=== PATIENT | female | born 1990 | race American Indian/Alaskan Native ===

== ENCOUNTER 2019-08-24 11:44 | Inpatient (IN) | payer SELFPAY ==
[2019-08-24] MEDS ORDERED: SODIUM CHLORIDE 0.9% 500 ML 500 ML IV ONE (12:04)
--- NOTE | 2019-08-24 12:06 | Event Note ---
ED Screening Note Date of service: 08/24/19 Time: 12:04 ED Screening Note: 28 y/o female comes in for n/v/ and right foot ulcer. She has a history of Diabetes and htn. This initial assessment/diagnostic orders/clinical plan/treatment(s) is/are subject to change based on patients health status, clinical progression and re- assessment by fellow clinical providers in the ED. Further treatment and workup at subsequent clinical providers discretion. Patient/guardian urged not to elope from the ED as their condition may be serious if not clinically assessed and managed. Initial orders include:
[2019-08-24 12:36] LABS: Hematocrit 29.8 % (30.3-42.9); Hemoglobin 9.8 gm/dl (10.1-14.3); Mean Corpuscular HGB Conc 33 % (30-34); Mean Corpuscular Volume 71 fl (79-97); Platelet Count 388 K/mm3 (140-440)
[2019-08-24] MEDS ORDERED: ONDANSETRON 4 MG/2 ML INJ IV ONE (12:45)
[2019-08-24] MEDS ORDERED: SODIUM CHLORIDE 0.9% 1000 ML 1,000 ML IV ONE (12:45)
[2019-08-24] MEDS ORDERED: FAMOTIDINE 20 MG/2 ML INJ IV ONE (12:46)
--- NOTE | 2019-08-24 12:53 | Emergency Department Report ---
HPI - General Chief Complaint: Nausea/Vomiting/Diarrhea Time Seen by Provider: 08/24/19 12:35 - HPI HPI: Room 18 The pt is a 28 y/o Female present with a chief complaint of nausea vomiting. The patient states she has had nausea vomiting and diarrhea for the past 3 days. Patient denies abdominal pain but states her symptoms worsen whenever she attempts to eat. The patient states the last thing she had eaten prior to her symptoms with pineapple. Patient denies any known sick contacts. Patient denies history of fever or cough. Patient admits to an ulceration to the bottom of her right foot for approximate 1 year. Patient states it has been getting smaller. ED Past Medical Hx - Past Medical History Previous Medical History?: Yes Hx Diabetes: Yes - Surgical History Past Surgical History?: No - Family History Family history: no significant - Social History Smoking Status: Former Smoker (None x2 years) Substance Use Type: None (Denies illicit drug use) ED Review of Systems ROS: Stated complaint: WEAK/VOMITING Other details as noted in HPI Constitutional: denies: fever Eyes: denies: eye pain ENT: denies: throat pain Respiratory: no symptoms reported Cardiovascular: denies: chest pain Endocrine: no symptoms reported Gastrointestinal: nausea, vomiting, diarrhea. denies: abdominal pain Genitourinary: denies: dysuria Neurological: denies: headache Physical Exam - Physical Exam Vital Signs: Vital Signs 08/24/19 11:57 Temperature 98.4 F Pulse Rate 109 H Respiratory 18 Rate Blood Pressure 149/87 O2 Sat by Pulse 96 Oximetry Physical Exam: GENERAL: The patient is well-developed well-nourished female lying on stretcher not appearing to be in acute distress. [] HEENT: Normocephalic. Atraumatic. Extraocular motions are intact. Patient has moist mucous membranes. NECK: Supple. Trachea midline CHEST/LUNGS: Clear to auscultation. There is no respiratory distress noted. HEART/CARDIOVASCULAR: Regular. There is no tachycardia. There is no gallop rub or murmur. ABDOMEN: Abdomen is soft, nontender. Patient has normal bowel sounds. There is no abdominal distention. SKIN: There is no rash. There is no edema. There is no diaphoresis. Approximate 3 cm diameter ulceration to the sole of the right foot. No foul odor present. NEURO: The patient is awake, alert, and oriented. The patient is cooperative. The patient has normal speech MUSCULOSKELETAL: There is no evidence of acute injury. ED Course Vital Signs 08/24/19 11:57 Temperature 98.4 F Pulse Rate 109 H Respiratory 18 Rate Blood Pressure 149/87 O2 Sat by Pulse 96 Oximetry - Consultations Consultation #1: 08/24/19 14:25 Infectious disease paged. 08/24/19 14:[address] Pelletier-agree with sending for the past 19 testing. Does not recommend initiating therapy yet ED Medical Decision Making - Lab Data Result diagrams: 08/24/19 12:20 08/24/19 12:20 Laboratory Tests 08/24/19 08/24/19 08/24/19 12:12 12:20 12:20 WBC 7.9 RBC 4.20 Hgb 9.8 L Hct 29.8 L MCV 71 L MCH 23 L MCHC 33 RDW 16.0 H Plt Count 388 ESR Cancelled PT 13.2 INR 0.99 ABG pH ABG pCO2 ABG pO2 ABG HCO3 ABG O2 Saturation ABG O2 Content ABG Base Excess ABG Hemoglobin ABG Carboxyhemoglobin ABG Methemoglobin VBG pH Oxyhemoglobin FiO2 Sodium Potassium Chloride Carbon Dioxide Anion Gap BUN Creatinine Estimated GFR BUN/Creatinine Ratio Glucose POC Glucose 158 H Lactic Acid Calcium Total Bilirubin AST ALT Alkaline Phosphatase C-Reactive Protein Total Protein Albumin Albumin/Globulin Ratio Lipase HCG, Quant 08/24/19 08/24/19 08/24/19 12:20 12:20 12:20 WBC RBC Hgb Hct MCV MCH MCHC RDW Plt Count ESR PT INR ABG pH ABG pCO2 ABG pO2 ABG HCO3 ABG O2 Saturation ABG O2 Content ABG Base Excess ABG Hemoglobin ABG Carboxyhemoglobin ABG Methemoglobin VBG pH 7.291 L Oxyhemoglobin FiO2 Sodium 132 L Potassium 4.9 Chloride 100.6 Carbon Dioxide 17 L Anion Gap 19 BUN 66 H Creatinine 4.1 H Estimated GFR 13 BUN/Creatinine Ratio 16 Glucose 159 H POC Glucose Lactic Acid 1.00 Calcium 8.7 Total Bilirubin 0.20 AST 32 ALT 21 Alkaline Phosphatase 86 C-Reactive Protein Total Protein 8.3 H Albumin 3.1 L Albumin/Globulin Ratio 0.6 Lipase HCG, Quant 08/24/19 08/24/19 08/24/19 12:20 12:20 12:20 WBC RBC Hgb Hct MCV MCH MCHC RDW Plt Count ESR PT INR ABG pH ABG pCO2 ABG pO2 ABG HCO3 ABG O2 Saturation ABG O2 Content ABG Base Excess ABG Hemoglobin ABG Carboxyhemoglobin ABG Methemoglobin VBG pH Oxyhemoglobin FiO2 Sodium Potassium Chloride Carbon Dioxide Anion Gap BUN Creatinine Estimated GFR BUN/Creatinine Ratio Glucose POC Glucose Lactic Acid Calcium Total Bilirubin AST ALT Alkaline Phosphatase C-Reactive Protein 7.70 H Total Protein Albumin Albumin/Globulin Ratio Lipase 92 H HCG, Quant 0.569 08/24/19 14:15 WBC RBC Hgb Hct MCV MCH MCHC RDW Plt Count ESR PT INR ABG pH 7.314 L ABG pCO2 34.3 ABG pO2 52.9 L ABG HCO3 17.1 L ABG O2 Saturation 84.0 L ABG O2 Content 10.3 ABG Base Excess -8.3 L ABG Hemoglobin 8.9 L ABG Carboxyhemoglobin 1.5 ABG Methemoglobin 0.6 VBG pH Oxyhemoglobin 82.2 L FiO2 21 Sodium Potassium Chloride Carbon Dioxide Anion Gap BUN Creatinine Estimated GFR BUN/Creatinine Ratio Glucose POC Glucose Lactic Acid Calcium Total Bilirubin AST ALT Alkaline Phosphatase C-Reactive Protein Total Protein Albumin Albumin/Globulin Ratio Lipase HCG, Quant - EKG Data -: EKG Interpreted by Me EKG shows normal: sinus rhythm Rate: tachycardia (102 bpm) - EKG Data When compared to previous EKG there are: previous EKG unavailable Interpretation: other (no ischemic changes) - Radiology Data Radiology results: image reviewed (CXR, Right foot xray, abd xray) interpreted by me: CXR- diffuse haziness, no ptx Abd xray- no AF levels, no free air right foot xray- No evidence of osteomyelitis [facility] [address] [place] [address] XRay Report Signed Patient: MARIO CAMPOS MR#: [id number] : 1990 Acct:[id number] Age/Sex: 28 / F ADM Date: 08/24/19 Loc: ED Attending Dr: Ordering Physician: MARY KAY SWARTZ MD Date of Service: 08/24/19 Procedure(s): XR chest 1V ap Accession Number(s): [id number] cc: MARY KAY SWARTZ MD Fluoro Time In Minutes: CHEST 1 VIEW INDICATION: possible Sepsis. COMPARISON: None FINDINGS: Support devices: None. Heart: Within normal limits. Lungs/Pleura: Mild central v ascular congestion and streaky right basilar airspace disease. No effusion. Additional findings: None. IMPRESSION: 1. Pulmonary findings as above. Signer Name: Brian Duggan MD Signed: 08/24/2019 1:51 PM Workstation Name: [id number] Transcribed By: ANTOINETTE Dictated By: Brian Duggan MD Electronically Authenticated By: Brian Duggan MD Signed Date/Time: 08/24/19 135 DD/ 49 TD/TT: [address] [address] XRay Report Signed Patient: MARIO CAMPOS MR#: [id number] : 1990 Acct:[id number] Age/Sex: 28 / F ADM Date: 08/24/19 Loc: ED Attending Dr: Ordering Physician: MARY KAY SWARTZ MD Date of Service: 08/24/19 Procedure(s): XR abdomen 2V Accession Number(s): [id number] cc: MARY KAY SWARTZ MD Fluoro Time In Minutes: ABDOMEN 2 VIEW(S) INDICATION / CLINICAL INFORMATION: n/v/d. COMPARISON: Chest x-ray from today FINDINGS: TUBES / LINES: None. BOWEL GAS PATTERN: No significant abnormality. FREE AIR / EXTRALUMINAL GAS: None seen. ADDITIONAL FINDINGS: No significant additional findings. IMPRESSION: 1. No significant abnormality. Signer Name: Brian Duggan MD Signed: 08/24/2019 1:52 PM Workstation Name: [id number] Transcribed By: ANTOINETTE Dictated By: Brian Duggan MD Electronically Authenticated By: Brian Duggan MD Signed Date/Time: 08/24/19 135 DD/ 135 TD/TT: [address] [address] XRay Report Signed Patient: MARIO CAMPOS MR#: [id number] : 1990 Acct:[id number] Age/Sex: 28 / F ADM Date: 08/24/19 Loc: ED Attending Dr: Ordering Physician: GEOFFREY MICHELLE Date of Service: 08/24/19 Procedure(s): XR foot 2V RT Accession Number(s): [id number] cc: GEOFFREY MICHELLE Fluoro Time In Minutes: Right foot-2 views INDICATION: foot ulcer. COMPARIS ON: None. IMPRESSION: Soft tissue wound along the plantar aspect of the forefoot with surrounding soft tissue swelling and subcutaneous gas. No periostitis or bone destruction to suggest osteomyelitis on this exam. No significant DJD. Signer Name: Brian Duggan MD Signed: 08/24/2019 1:52 PM Workstation Name: [id number] Transcribed By: JW Dictated By: Brian Duggan MD Electronically Authenticated By: Brian Duggan MD Signed Date/Time: 08/24/19 1352 DD/ 1351 TD/TT: - Differential Diagnosis Gastroenteritis, partial small bowel obstruction, UTI Critical care attestation.: If time is entered above; I have spent that time in minutes in the direct care of this critically ill patient, excluding procedure time. ED Disposition Clinical Impression: Hypoxia, Nausea vomiting and diarrhea Disposition: OP ADMIT IP TO THIS HOSP Is pt being admited?: Yes Does the pt Need Aspirin: No Condition: Serious Time of Disposition: 14:26 (Hospitalist notified (Dr Matias- will order abx))
[2019-08-24 12:58] LABS: INR 0.99 (0.87-1.13)
[2019-08-24 13:00] LABS: Albumin 3.1 g/dL (3.9-5); Calcium 8.7 mg/dL (8.4-10.2)
--- NOTE | 2019-08-24 13:55 | XRay Report ---
CHEST 1 VIEW INDICATION: possible Sepsis. COMPARISON: None FINDINGS: Support devices: None. Heart: Within normal limits. Lungs/Pleura: Mild central vascular congestion and streaky right basilar airspace disease. No effusio n. Additional findings: None. IMPRESSION: 1. Pulmonary findings as above. Signer Name: Brian Duggan MD Signed: 08/24/2019 1:51 PM Workstation Name: [id number]
--- NOTE | 2019-08-24 13:56 | XRay Report ---
Right foot-2 views INDICATION: foot ulcer. COMPARISON: None. IMPRESSION: Soft tissue wound along the plantar aspect of the forefoot with surrounding soft tissue swelling and subcutaneous gas. No periostitis or bone destruction to suggest osteomyelitis on this ex am. No significant DJD. Signer Name: Brian Duggan MD Signed: 08/24/2019 1:52 PM Workstation Name: [id number]
--- NOTE | 2019-08-24 13:57 | XRay Report ---
ABDOMEN 2 VIEW(S) INDICATION / CLINICAL INFORMATION: n/v/d. COMPARISON: Chest x-ray from today FINDINGS: TUBES / LINES: None. BOWEL GAS PATTERN: No significant abnormality. FREE AIR / EXTRALUMINAL GAS: None seen. ADDITIONAL FINDINGS: No significant additional findings. IMPRESSION: 1. No significant abnormality. Signer Name: Brian Duggan MD Signed: 08/24/2019 1:52 PM Workstation Name: [id number]
[2019-08-24 14:22] LABS: ABG Base Excess -8.3 mmol/L (-2.0-3.0); ABG HCO3 17.1 mmol/L (20.0-26.0); ABG Methemoglobin 0.6 % (0.0-1.5); ABG PCO2 34.3 mm Hg; ABG PH 7.314 pH Units (7.350-7.450); ABG PO2 52.9 mm Hg (80.0-90.0)
[2019-08-24] MEDS ORDERED: ONDANSETRON 4 MG/2 ML INJ IV PRN (14:41)
[2019-08-24 14:46] LABS: Basophils % (Manual) 0 % (0.0-1.8); Total Cells Counted 100
[2019-08-24 14:47] LABS: Band Neutrophils # (Manual) 0.4 K/mm3; Eosinophils % (Manual) 0 % (0.0-4.3); Hypochromasia 1+; Platelet Clumps Rare; Platelet Estimate Consistent w Auto
[2019-08-24 15:49] LABS: C-Reactive Protein 6.6 mg/dL (0.00-1.30)
--- NOTE | 2019-08-24 20:17 | History and Physical Report ---
History of Present Illness Date of admission: 08/24/19 14:41 Chief complaint: I feel sick History of present illness: 28 YO Female with DM, presents to ED for evaluation. Patient states that she has been "feeling sick" over the past 3 days with persistent symptoms over the same timeframe. Patient states that she has experienced nausea, multiple episodes of vomiting, and multiple loose stools. Patient acknowledges change in her sense of taste, generalized weakness, malaise, and not feeling in her normal state of health. Patient transported to [facility] via private vehicle for further care and evaluation. Patient seen and evaluated in the emergency department. Lab and imaging studies reviewed. Chest x-ray shows right lower lobe infiltrate. Patient found to have a pulse oximetry of 85% on room air consistent with acute hypoxemic respiratory failure complicated by pneumonia as well as the aforementioned symptoms which raises suspicion for infection with COVID-19. Patient admitted to medical floor and initiated on pneumonia protocol as well as COVID-19 protocol. Patient denies fever, chills, chest pain, productive cough, skin rash, recent ill contacts, or known exposure to i ndividuals with COVID-19 infection. No prior admission for review. All medication listed at time of admission has been reconciled. Infectious disease consult placed in the emergency department. Past History Past Medical History: diabetes Medications and Allergies Allergies Allergy/AdvReac Type Severity Reaction Status Date / Time No Known Allergies Allergy Unverified 08/24/19 12:03 Home Medications Medication Instructions Recorded Confirmed Last Taken Type HumaLOG 10 units SQ TID 08/24/19 08/24/19 08/22/19 19:00 History Active Meds: Active Medications Acetaminophen (Tylenol) 650 mg PO Q4H PRN PRN Reason: Pain MILD(1-3)/Fever >100.5/CLAIRE Ceftriaxone Sodium (Rocephin/Ns 2 Gm/100 Ml) 2 gm in 100 mls @ 200 mls/hr IV Q24HR ARLETH; Protocol Ondansetron HCl (Zofran) 4 mg IV Q8H PRN PRN Reason: Nausea And Vomiting Sodium Chloride (Sodium Chloride Flush Syringe 10 Ml) 10 ml IV BID ARLETH Sodium Chloride (Sodium Chloride Flush Syringe 10 Ml) 10 ml IV PRN PRN PRN Reason: LINE FLUSH Review of Systems Constitutional: weakness, malaise, lethargy, no fever, no chills Ears, nose, mouth and throat: no ear pain, no ear discharge, no tinnitis, no decreased hearing, no nose pain Breasts: no change in shape, no swelling Cardiovascular: no palpitations, no rapid/irregular heart beat, no edema Respiratory: no cough, no cough with sputum, no excessive sputum, no hemoptysis, no shortness of breath Gastrointestinal: nausea, vomiting, change in bowel habits, no hematemesis, no hematochezia, no loss of appetite, no early satiety Genitourinary Female: no pelvic pain, no flank pain, no menorrhagia, no dysuria, no urinary frequency Rectal: no pain, no incontinence, no bleeding Musculoskeletal: no neck stiffness, no neck pain, no arm numbness/tingling, no shooting leg pain Integumentary: no rash, no redness, no sores Neurological: no paralysis, no weakness, no parathesias, no numbness, no lack of coordination Psychiatric: no anxiety, no memory loss, no change in sleep habits, no sleep disturbances, no hypersomnia Endocrine: no cold intolerance, no heat intolerance, no excessive thirst, no po lydipsia, no increase in ring/shoe/hat size, no high blood sugars Hematologic/Lymphatic: no easy bruising, no easy bleeding, no lymphadenopathy, no lymphedema Allergic/Immunologic: no urticaria, no wheezing, no persistent infections Exam - Constitutional Vitals: Temp Pulse Resp BP Pulse Ox 98.4 F 107 H 22 166/92 85 08/24/19 18:03 08/24/19 18:03 08/24/19 18:03 08/24/19 18:30 08/24/19 18:03 General appearance: Present: mild distress, cachectic - EENT Eyes: Present: PERRL ENT: hearing intact, clear oral mucosa - Neck Neck: Present: supple, normal ROM - Respiratory Respiratory effort: normal Respiratory: right: diminished, rhonchi - Cardiovascular Heart Sounds: Present: S1 & S2. Absent: rub, click - Extremities Extremities: pulses symmetrical, No edema Peripheral Pulses: within normal limits - Abdominal General gastrointestinal: Present: soft, non-tender, non-distended, normal bowel sounds Female genitourinary: Present: normal - Integumentary Integumentary: Present: clear, warm, dry - Musculoskeletal Musculoskeletal: generalized weakness - Psychiatric Psychiatric: appropriate mood/affect, intact judgment & insight - Neurologic Neurologic: CNII-XII intact, moves all extremities Results - Labs CBC & Chem 7: 08/24/19 12:20 08/24/19 14:50 Labs: Abnormal lab results 08/24/19 08/24/19 08/24/19 Range/Units 12:12 12:20 12:20 Hgb 9.8 L (10.1-14.3) gm/dl Hct 29.8 L (30.3-42.9) % MCV 71 L (79-97) fl MCH 23 L (28-32) pg RDW 16.0 H (13.2-15.2) % Seg Neuts % (Manual) 78.0 H (40.0-70.0) % Lymphocytes % (Manual) 11.0 L (13.4-35.0) % Lymphocytes # (Manual) 0.9 L (1.2-5.4) K/mm3 D-Dimer (0-234) ng/mlDDU ABG pH (7.350-7.450) pH Units ABG pO2 (80.0-90.0) mm Hg ABG HCO3 (20.0-26.0) mmol/L ABG O2 Saturation (95.0-99.0) % ABG Base Excess (-2.0-3.0) mmol/L ABG Hemoglobin (12.0-16.0) gm/dl VBG pH (7.320-7.420) Oxyhemoglobin (95.0-99.0) % Sodium 132 L (137-145) mmol/L Carbon Dioxide 17 L (22-30) mmol/L BUN 66 H (7-17) mg/dL Creatinine 4.1 H (0.7-1.2) mg/dL Glucose 159 H (65-100) mg/dL POC Glucose 158 H (70-105) Ferritin (13.0-400.0) ng/mL Lactate Dehydrogenase (91-180) units/L C-Reactive Protein (0.00-1.30) mg/dL Total Protein 8.3 H (6.3-8.2) g/dL Albumin 3.1 L (3.9-5) g/dL Lipase (13-60) units/L 08/24/19 08/24/19 08/24/19 Range/Units 12:20 12:20 12:20 Hgb (10.1-14.3) gm/dl Hct (30.3-42.9) % MCV (79-97) fl MCH (28-32) pg RDW (13.2-15.2) % Seg Neuts % (Manual) (40.0-70.0) % Lymphocytes % (Manual) (13.4-35.0) % Lymphocytes # (Manual) (1.2-5.4) K/mm3 D-Dimer (0-234) ng/mlDDU ABG pH (7.350-7.450) pH Units ABG pO2 (80.0-90.0) mm Hg ABG HCO3 (20.0-26.0) mmol/L ABG O2 Saturation (95.0-99.0) % ABG Base Excess (-2.0-3.0) mmol/L ABG Hemoglobin (12.0-16.0) gm/dl VBG pH 7.291 L (7.320-7.420) Oxyhemoglobin (95.0-99.0) % Sodium (137-145) mmol/L Carbon Dioxide (22-30) mmol/L BUN (7-17) mg/dL Creatinine (0.7-1.2) mg/dL Glucose (65-100) mg/dL POC Glucose (70-105) Ferritin (13.0-400.0) ng/mL Lactate Dehydrogenase (91-180) units/L C-Reactive Protein 7.70 H (0.00-1.30) mg/dL Total Protein (6.3-8.2) g/dL Albumin (3.9-5) g/dL Lipase 92 H (13-60) units/L 08/24/19 08/24/19 08/24/19 Range/Units 14:15 14:50 14:50 Hgb (10.1-14.3) gm/dl Hct (30.3-42.9) % MCV (79-97) fl MCH (28-32) pg RDW (13.2-15.2) % Seg Neuts % (Manual) (40.0-70.0) % Lymphocytes % (Manual) (13.4-35.0) % Lymphocytes # (Manual) (1.2-5.4) K/mm3 D-Dimer 932.05 H (0-234) ng/mlDDU ABG pH 7.314 L (7.350-7.450) pH Units ABG pO2 52.9 L (80.0-90.0) mm Hg ABG HCO3 17.1 L (20.0-26.0) mmol/L ABG O2 Saturation 84.0 L (95.0-99.0) % ABG Base Excess -8.3 L (-2.0-3.0) mmol/L ABG Hemoglobin 8.9 L (12.0-16.0) gm/dl VBG pH (7.320-7.420) Oxyhemoglobin 82.2 L (95.0-99.0) % Sodium (137-145) mmol/L Carbon Dioxide (22-30) mmol/L BUN (7-17) mg/dL Creatinine (0.7-1.2) mg/dL Glucose 151 H (65-100) mg/dL POC Glucose (70-105) Ferritin (13.0-400.0) ng/mL Lactate Dehydrogenase 485 H (91-180) units/L C-Reactive Protein 6.60 H (0.00-1.30) mg/dL Total Protein (6.3-8.2) g/dL Albumin (3.9-5) g/dL Lipase (13-60) units/L 08/24/19 Range/Units 14:50 Hgb (10.1-14.3) gm/dl Hct (30.3-42.9) % MCV (79-97) fl MCH (28-32) pg RDW (13.2-15.2) % Seg Neuts % (Manual) (40.0-70.0) % Lymphocytes % (Manual) (13.4-35.0) % Lymphocytes # (Manual) (1.2-5.4) K/mm3 D-Dimer (0-234) ng/mlDDU ABG pH (7.350-7.450) pH Units ABG pO2 (80.0-90.0) mm Hg ABG HCO3 (20.0-26.0) mmol/L ABG O2 Saturation (95.0-99.0) % ABG Base Excess (-2.0-3.0) mmol/L ABG Hemoglobin (12.0-16.0) gm/dl VBG pH (7.320-7.420) Oxyhemoglobin (95.0-99.0) % Sodium (137-145) mmol/L Carbon Dioxide (22-30) mmol/L BUN (7-17) mg/dL Creatinine (0.7-1.2) mg/dL Glucose (65-100) mg/dL POC Glucose (70-105) Ferritin 484.4 H (13.0-400.0) ng/mL Lactate Dehydrogenase (91-180) units/L C-Reactive Protein (0.00-1.30) mg/dL Total Protein (6.3-8.2) g/dL Albumin (3.9-5) g/dL Lipase (13-60) units/L Assessment and Plan - Patient Problems (1) Acute hypoxemic respiratory failure Current Visit: Yes Status: Acute Plan to address problem: Chest x-ray, ABG, submental oxygen, pulse oximetry, nebulizer therapy, treat pneumonia, pulmonary toilet. (2) Right lower lobe pneumonia Current Visit: Yes Status: Acute Plan to address problem: Chest x-ray, pneumonia protocol, CBC, CMP, IV antibiotic therapy, submental oxygen, pulse oximetry, blood culture. (3) Suspected COVID-19 virus infection Current Visit: Yes Status: Acute Plan to address problem: COVID-19 protocol, infectious disease consulted, LDH, ferritin, procalcitonin, d-dimer, COVID-19 PCR. (4) Diabetes mellitus Current Visit: Yes Status: Acute Plan to address problem: Sliding scale insulin therapy, Accu-Chek, consistent carbohydrate diet, hypoglycemia protocol. (5) DVT prophylaxis Current Visit: Yes Status: Acute Plan to address problem: SCD to bilateral lower extremities while in bed, patient is ambulatory.
[2019-08-24] MEDS ORDERED: DEXTROSE 50% IN WATER (25GM) 50 ML SYRINGE IV PRN (21:24)
[2019-08-24] MEDS: ACETAMINOPHEN 325 MG TAB PO PRN (21:42)
[2019-08-24 22:18] LABS: Creatinine,Urine 63.5 mg/dL (0.1-20.0)
[2019-08-24 22:29] LABS: Bacteria,Urine 2+ /HPF (Negative); Bilirubin,Urine NEG (Negative); Blood,Urine MOD (Negative); Color,Urine Yellow (Yellow); Mucus,Urine FEW /HPF; Urobilinogen,Urine < 2.0 mg/dL (<2.0)
[2019-08-24] MEDS: hydrALAZINE 20 MG/1 ML INJ IV PRN (22:57)
[2019-08-25] MEDS: INSULIN LISPRO 100 UNIT/ML SUB-Q SCH ×5 (00:10→23:33)
[2019-08-25] MEDS: hydrALAZINE 20 MG/1 ML INJ IV PRN ×2 (05:55→22:11)
--- NOTE | 2019-08-25 09:25 | Consultation ---
History of Present Illness - Reason for Consult Consult date: 08/25/19 acute renal failure, chronic renal failure - History of Present Illness The patient is a 28 YO female with history significant for Morbid obesity, DM type 1, HTN and CKD who presented to [facility] 08/23 with c/o N, V and D for the past week. Patient states that she has experienced nausea, multiple episodes of vomiting, and multiple loose stools. Patient also reports decreased PO intake, weight loss, generalized weakness, malaise, and not feeling well. she denies fever, chills, cough, cp, sob, dysuria, hematuria or syncope. Patient was found to have a pulse oximetry of 85% on room air. Chest x-ray showed right lower lobe infiltrate and pulmonary vascular congestion. Labs significant for creat 4.1. Patient admitted to medical floor and initiated on pneumonia protocol as well as COVID-19 protocol. She was told a year ago about advanced stage kidney disease. Nephrology was consulted for further evaluation. Past History Past Medical History: diabetes, hypertension, renal failure Medications and Allergies Allergies Allergy/AdvReac Type Severity Reaction Status Date / Time No Known Allergies Allergy Unverified 08/24/19 12:03 Home Medications Medication Instructions Recorded Confirmed Last Taken Type HumaLOG 10 units SQ TID 08/24/19 08/24/19 08/22/19 19:00 History Active Meds: Active Medications Acetaminophen (Tylenol) 650 mg PO Q4H PRN PRN Reason: Pain MILD(1-3)/Fever >100.5/CLAIRE Last Admin: 08/24/19 21:42 Dose: 650 mg Documented by: Dextrose (D50w (25gm) Syringe) 0 ml IV Q30MIN PRN; Protocol PRN Reason: Hypoglycemia Hydralazine HCl (Apresoline) 5 mg IV Q6H PRN PRN Reason: elevated bp Last Admin: 08/25/19 05:55 Dose: 5 mg Documented by: Ceftriaxone Sodium (Rocephin/Ns 2 Gm/100 Ml) 2 gm in 100 mls @ 200 mls/hr IV Q24HR ARLETH; Protocol Insulin Human Lispro (Humalog) 0 unit SUB-Q Q6HR ARLETH; Protocol Last Admin: 08/25/19 05:55 Dose: Not Given Documented by: Ondansetron HCl (Zofran) 4 mg IV Q8H PRN PRN Reason: Nausea And Vomiting Sodium Chloride (Sodium Chloride Flush Syringe 10 Ml) 10 ml IV BID ARLETH Last Admin: 08/24/19 22:03 Dose: 10 ml Documented by: Sodium Chloride (Sodium Chloride Flush Syringe 10 Ml) 10 ml IV PRN PRN PRN Reason: LINE FLUSH Review of Systems Constitutional: weight loss, anorexia, fatigue, weakness, malaise, poor appetite, no weight gain, no fever, no chills Breasts: deferred Cardiovascular: high blood pressure, no chest pain, no orthopnea, no edema, no syncope, no lightheadedness, no shortness of breath, no leg edema Respiratory: no cough, no cough with sputum, no hemoptysis, no shortness of breath Gastrointestinal: nausea, vomiting, diarrhea, no abdominal pain, no melena, no hematochezia Musculoskeletal: no morning stiffness, no muscle weakness, no muscle cramps Integumentary: no rash, no wounds, no jaundice Neurological: no convulsions, no change in speech, no change in mentation, no confusion Exam - Vital Signs Vital signs: Vital Signs Temp Pulse Resp BP Pulse Ox 98.4 F 109 H 18 149/87 96 08/24/19 11:57 08/24/19 11:57 08/24/19 11:57 08/24/19 11:57 08/24/19 11:57 - General Appearance General appearance: well-developed, well-nourished, appears stated age, obese, other (no distress, RN present) EENT: ATNC, PERRL, hearing intact, vision intact Neck: Present: neck supple, trachea midline Respiratory: Clear to Ascultation Heart: regular, S1S2, no murmurs Gastrointestinal: Present: normoactive bowel sounds, obese. Absent: tenderness, distended Integumentary: no rash, warm and dry Neurologic: no focal deficit, no asterixis, alert and oriented x3 Musculoskeletal: Present: other (no edema) Psychiatric: cooperative Results - Lab Results 08/24/19 12:20 08/25/19 10:07 Most recent lab results ABG pH 7.314 pH Units (7.350-7.450) L 08/24/19 14:15 ABG pCO2 34.3 mm Hg 08/24/19 14:15 ABG pO2 52.9 mm Hg (80.0-90.0) L 08/24/19 14:15 ABG HCO3 17.1 mmol/L (20.0-26.0) L 08/24/19 14:15 ABG O2 Saturation 84.0 % (95.0-99.0) L 08/24/19 14:15 Calcium 8.7 mg/dL (8.4-10.2) 08/24/19 12:20 Urine Creatinine 63.5 mg/dL (0.1-20.0) H 08/24/19 21:00 Urine Sodium 31 mmol/L 08/24/19 21:00 - Image Kidney/bladder ultrasound: pending Assessment and Plan 1. CKD stage 4: Patient with known h/o CKD. No prior labs are available. Most likely CKD stage 4. Monitor renal function. Renal prognosis is guarded. Avoid nephrotoxic agents. Meds dosage based on GFR. 2. FEN: Metabolic acidosis, add Sodium bicarbonate. Monitor lytes and volume status. 3. Acute hypoxemic respiratory failure: Likely 2/2 PNA. Supplemental O2. Treat pneumonia. 4. Right lower lobe pneumonia: Pneumonia protocol. 5. Suspected COVID-19 virus infection: Follow COVID-19 results. 6. Diabetes mellitus type 1. 7. Uncontrolled Hypertension: Started on Amlodipine and Metoprolol. 8. Microcytic Anemia, POA.
[2019-08-25] MEDS: cefTRIAXone/NS 2 GM/100 ML 2 GM/100 ML BAG IV SCH (10:38)
[2019-08-25] MEDS: METOPROLOL TARTRATE 50 MG TAB PO SCH ×2 (10:39→22:02)
[2019-08-25] MEDS: amLODIPine 10 MG TAB PO SCH (10:40)
[2019-08-25 11:09] LABS: Calcium 8.6 mg/dL (8.4-10.2)
[2019-08-25 12:27] LABS: Hepatitis B Surface Antigen Non-Reactive (Negative); Hepatitis C Virus Antibody Non-Reactive (NonReactive)
--- NOTE | 2019-08-25 16:22 | Consultation ---
History of Present Illness - Reason for Consult Consult date: 08/25/19 COVID rule out Requesting physician: MARY KAY SWARTZ - History of Present Illness The patient is a 28-year-old female with obesity, diabetes mellitus was admitted to the hospital yesterday with complaints of nausea, vomiting and diarrhea. She was also found to be hypoxic with chest x-ray finding showing a streaky infiltrate in the right lower lobe. Patient was admitted to the hospital with concerns for COVID-19. Infectious diseases was consulted for additional evaluation. Currently on oxygen. Low-grade fever. Review of Systems: reviewed in the chart, unable to obtain directly due to PPE shortage and preservation Past History Past Medical History: diabetes, hypertension, renal failure Medications and Allergies Allergies Allergy/AdvReac Type Severity Reaction Status Date / Time No Known Allergies Allergy Unverified 08/24/19 12:03 Home Medications Medication Instructions Recorded Confirmed Last Taken Type HumaLOG 10 units SQ TID 08/24/19 08/24/19 08/22/19 19:00 History Active Meds: Active Medications Acetaminophen (Tylenol) 650 mg PO Q4H PRN PRN Reason: Pain MILD(1-3)/Fever >100.5/CLAIRE Last Admin: 08/24/19 21:42 Dose: 650 mg Documented by: Amlodipine Besylate (Amlodipine) 10 mg PO QDAY ARLETH Last Admin: 08/25/19 10:40 Dose: 10 mg Documented by: Dextrose (D50w (25gm) Syringe) 0 ml IV Q30MIN PRN; Protocol PRN Reason: Hypoglycemia Hydralazine HCl (Apresoline) 5 mg IV Q6H PRN PRN Reason: elevated bp Last Admin: 08/25/19 05:55 Dose: 5 mg Documented by: Ceftriaxone Sodium (Rocephin/Ns 2 Gm/100 Ml) 2 gm in 100 mls @ 200 mls/hr IV Q24HR ARLETH; Protocol Last Admin: 08/25/19 10:38 Dose: 200 mls/hr Documented by: Insulin Human Lispro (Humalog) 0 unit SUB-Q Q6HR ARLETH; Protocol Last Admin: 08/25/19 13:29 Dose: Not Given Documented by: Metoprolol Tartrate (Metoprolol) 50 mg PO BID ARLETH Last Admin: 08/25/19 10:39 Dose: 50 mg Documented by: Ondansetron HCl (Zofran) 4 mg IV Q8H PRN PRN Reason: Nausea And Vomiting Sodium Bicarbonate (Sodium Bicarbonate) 1,300 mg PO TID [facility] Sodium Chloride (Sodium Chloride Flush Syringe 10 Ml) 10 ml IV BID ARLETH Last Admin: 08/25/19 10:40 Dose: 10 ml Documented by: Sodium Chloride (Sodium Chloride Flush Syringe 10 Ml) 10 ml IV PRN PRN PRN Reason: LINE FLUSH Physical Examination - Physical Exam Narrative exam: Physical Exam (reviewed in chart due to PPE conservation) Constitutional: limited due to PPE conservation strategy Head, Ears, Nose: limited due to PPE conservation strategy Eyes: limited due to PPE conservation strategy Neck: limited due to PPE conservation strategy Oral: limited due to PPE conservation strategy Cardiovascular: limited due to PPE conservation strategy Respiratory: limited due to PPE conservation strategy GI: limited due to PPE conservation strategy Musculoskeletal: limited due to PPE conservation strategy Skin: limited due to PPE conservation strategy Hem/Lymphatic: limited due to PPE conservation strategy Psych: limited due to PPE conservation strategy Neurological: limited due to PPE conservation strategy - Constitutional Vitals: Vital Signs Temp Pulse Resp BP Pulse Ox 98.5 F 85 20 156/90 98 08/25/19 12:26 08/25/19 12:26 08/25/19 12:26 08/25/19 12:26 08/25/19 12:26 Temperature -Last 24 Hours Temperature 98.5 F Temperature 98.1 F Temperature 100.2 F Temperature 98.4 F Results - Labs CBC & Chem 7: 08/24/19 12:20 08/25/19 10:07 Labs: Abnormal lab results 08/24/19 08/24/19 08/24/19 Range/Units 21:00 21:00 21:42 Sodium (137-145) mmol/L Carbon Dioxide (22-30) mmol/L BUN (7-17) mg/dL Creatinine (0.7-1.2) mg/dL Glucose (65-100) mg/dL POC Glucose 137 H (70-105) PTH Intact (15-65) pg/mL Urine WBC (Auto) 14.0 H (0.0-6.0) /HPF Urine Creatinine 63.5 H (0.1-20.0) mg/dL Coronavirus (PCR) (Negative) 08/25/19 08/25/19 08/25/19 Range/Units 05:41 10:07 10:07 Sodium 136 L (137-145) mmol/L Carbon Dioxide 13 L (22-30) mmol/L BUN 64 H (7-17) mg/dL Creatinine 4.0 H (0.7-1.2) mg/dL Glucose 173 H (65-100) mg/dL POC Glucose 134 H (70-105) PTH Intact 224.9 H (15-65) pg/mL Urine WBC (Auto) (0.0-6.0) /HPF Urine Creatinine (0.1-20.0) mg/dL Coronavirus (PCR) (Negative) 08/25/19 08/25/19 Range/Units 11:21 12:41 Sodium (137-145) mmol/L Carbon Dioxide (22-30) mmol/L BUN (7-17) mg/dL Creatinine (0.7-1.2) mg/dL Glucose (65-100) mg/dL POC Glucose 141 H (70-105) PTH Intact (15-65) pg/mL Urine WBC (Auto) (0.0-6.0) /HPF Urine Creatinine (0.1-20.0) mg/dL Coronavirus (PCR) Positive A (Negative) - Imaging and Cardiology Chest x-ray: report reviewed, image reviewed (subtle RLL infiltrate) Assessment and Plan Cultures: 08/24/2019 blood culture: Negative COVID-19 PCR: Positive A/P: 28-year-old female with obesity, diabetes mellitus: #COVID-19 disease: Procalcitonin elevation could be due to renal failure. #Acute hypoxic respiratory failure: Requiring nasal cannula oxygen #Acute renal failure: ?volume related #Nausea, vomiting diarrhea: could be from COVID-19. Recs: Continue ceftriaxone for now, although, slight procalcitonin elevation could be due to renal failure Markers not very elevated. No clear benefit with Plaquenil so will hold off trend ferritin, LDH, d-dimer, CRP every 2-3 days for risk stratification and to assess disease progression Maykel Pelletier MD, FACP [facility] ([facility] C: [phone] O: [phone] F: [phone]
--- NOTE | 2019-08-25 16:37 | Progress Note ---
Assessment and Plan Assessment and plan: Patient is a 28 yo woman with a history of DM type 2 and obesity who presents to [facility] ED with nausea, multiple episodes of vomiting, loss of taste and multiple loose stools for 3 days prior to arrival. Patient transported to [facility] via private vehicle for further care and evaluation. Chest x-ray shows right lower lobe infiltrate. Patient found to have a pulse oximetry of 85% on room air consistent with acute hypoxemic respiratory failure complicated by pneumonia * pCXR findings: Mild central vascular congestion and streaky right basilar airspace disease. Acute hypoxic respiratory failure: try to wean down from 3 liters O2 COVID-19 disease RLL early pneumonia: Procalcitonin elevation could be due to renal failure. Acute renal failure, suspected vasomotor nephropathy Nausea, vomiting diarrhea: could be from COVID-19: treat with anti-emetics Type I Diabetes mellitus: Sliding scale insulin therapy, Accu-Chek, consistent carbohydrate diet, hypoglycemia protocol. 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 DVT prophylaxis: add sq lovenox 08/25/19: COVID-19 positive, start protocol. ID following History Interval history: Patient was seen and examined. Follow-up on current diagnosis of COVID pneumonia. Overnight uneventful as no events directly reported to me. Patient denies any chest pain, nausea/vomiting or severe headaches. Imaging, nursing note, chart, labs and old chart reviewed. Discussed with patient. Hospitalist Physical - Physical exam Narrative exam: Gen: ill appearing, mild distress, morbid obesity BMI 42.6, NAD, Awake, Alert, Orientated HEENT: NCAT, EOMI, PERRL, OP Clear Neck: supple, no adenopathy, no thyromegaly, no JVD CVS/Heart: RRR, normal S1S2, pulses present bilaterally Chest/Lungs: diminished with inspiratory crackles, Symmetrical chest expansion, good air entry bilaterally GI/Abdomen: soft, NTND, good bowel sounds, no guarding or rebound /Bladder: no suprapubic tenderness, no CVA or paraspinal tenderness Extermity/Skin: no c/c/e, no obvious rash MSK: FROM x 4 Neuro: CN 2-12 grossly intact, no new focal deficits Psych: calm - Constitutional Vitals: Temp Pulse Resp BP Pulse Ox 98.5 F 85 20 156/90 98 08/25/19 12:26 08/25/19 12:26 08/25/19 12:26 08/25/19 12:26 08/25/19 12:26 General appearance: Absent: mild distress, cachectic Results - Labs CBC & Chem 7: 08/24/19 12:20 08/25/19 10:07 Labs: Laboratory Last Values WBC 7.9 K/mm3 (4.5-11.0) 08/24/19 12:20 RBC 4.20 M/mm3 (3.65-5.03) 08/24/19 12:20 Hgb 9.8 gm/dl (10.1-14.3) L 08/24/19 12:20 Hct 29.8 % (30.3-42.9) L 08/24/19 12:20 MCV 71 fl (79-97) L 08/24/19 12:20 MCH 23 pg (28-32) L 08/24/19 12:20 MCHC 33 % (30-34) 08/24/19 12:20 RDW 16.0 % (13.2-15.2) H 08/24/19 12:20 Plt Count 388 K/mm3 (140-440) 08/24/19 12:20 Add Manual Diff Complete 08/24/19 12:20 Total Counted 100 08/24/19 12:20 Seg Neuts % (Manual) 78.0 % (40.0-70.0) H 08/24/19 12:20 Band Neutrophils % 5.0 % 08/24/19 12:20 Lymphocytes % (Manual) 11.0 % (13.4-35.0) L 08/24/19 12:20 Reactive Lymphs % (Man) 1.0 % 08/24/19 12:20 Monocytes % (Manual) 5.0 % (0.0-7.3) 08/24/19 12:20 Eosinophils % (Manual) 0 % (0.0-4.3) 08/24/19 12:20 Basophils % (Manual) 0 % (0.0-1.8) 08/24/19 12:20 Metamyelocytes % 0 % 08/24/19 12:20 Myelocytes % 0 % 08/24/19 12:20 Promyelocytes % 0 % 08/24/19 12:20 Blast Cells % 0 % 08/24/19 12:20 Nucleated RBC % Not Reportable 08/24/19 12:20 Seg Neutrophils # Man 6.2 K/mm3 (1.8-7.7) 08/24/19 12:20 Band Neutrophils # 0.4 K/mm3 08/24/19 12:20 Lymphocytes # (Manual) 0.9 K/mm3 (1.2-5.4) L 08/24/19 12:20 Abs React Lymphs (Man) 0.1 K/mm3 08/24/19 12:20 Monocytes # (Manual) 0.4 K/mm3 (0.0-0.8) 08/24/19 12:20 Eosinophils # (Manual) 0.0 K/mm3 (0.0-0.4) 08/24/19 12:20 Basophils # (Manual) 0.0 K/mm3 (0.0-0.1) 08/24/19 12:20 Metamyelocytes # 0.0 K/mm3 08/24/19 12:20 Myelocytes # 0.0 K/mm3 08/24/19 12:20 Promyelocytes # 0.0 K/mm3 08/24/19 12:20 Blast Cells # 0.0 K/mm3 08/24/19 12:20 WBC Morphology Not Reportable 08/24/19 12:20 Hypersegmented Neuts Not Reportable 08/24/19 12:20 Hyposegmented Neuts Not Reportable 08/24/19 12:20 Hypogranular Neuts Not Reportable 08/24/19 12:20 Smudge Cells Not Reportable 08/24/19 12:20 Toxic Granulation Not Reportable 08/24/19 12:20 Toxic Vacuolation Not Reportable 08/24/19 12:20 Dohle Bodies Not Reportable 08/24/19 12:20 Pelger-Huet Anomaly Not Reportable 08/24/19 12:20 [place] Rods Not Reportable 08/24/19 12:20 Platelet Estimate Consistent w auto 08/24/19 12:20 Clumped Platelets Rare 08/24/19 12:20 Plt Clumps, EDTA Not Reportable 08/24/19 12:20 Large Platelets Not Reportable 08/24/19 12:20 Giant Platelets Not Reportable 08/24/19 12:20 Platelet Satelliting Not Reportable 08/24/19 12:20 Plt Morphology Comment Not Reportable 08/24/19 12:20 RBC Morphology Not Reportable 08/24/19 12:20 Dimorphic RBCs Not Reportable 08/24/19 12:20 Polychromasia Not Reportable 08/24/19 12:20 Hypochromasia 1+ 08/24/19 12:20 Poikilocytosis Not Reportable 08/24/19 12:20 Anisocytosis Not Reportable 08/24/19 12:20 Microcytosis 1+ 08/24/19 12:20 Macrocytosis Not Reportable 08/24/19 12:20 Spherocytes Not Reportable 08/24/19 12:20 Pappenheimer Bodies Not Reportable 08/24/19 12:20 Sickle Cells Not Reportable 08/24/19 12:20 Target Cells Not Reportable 08/24/19 12:20 Tear Drop Cells Not Reportable 08/24/19 12:20 Ovalocytes Not Reportable 08/24/19 12:20 Helmet Cells Not Reportable 08/24/19 12:20 [place] Bodies Not Reportable 08/24/19 12:20 [place] Rings Not Reportable 08/24/19 12:20 [place] Cells Not Reportable 08/24/19 12:20 Bite Cells Not Reportable 08/24/19 12:20 Crenated Cell Not Reportable 08/24/19 12:20 Elliptocytes Not Reportable 08/24/19 12:20 Acanthocytes (Spur) Not Reportable 08/24/19 12:20 Rouleaux Not Reportable 08/24/19 12:20 Hemoglobin C Crystals Not Reportable 08/24/19 12:20 Schistocytes Not Reportable 08/24/19 12:20 Malaria parasites Not Reportable 08/24/19 12:20 ESR Cancelled 08/24/19 12:20 Hiram Bodies Not Reportable 08/24/19 12:20 Hem Pathologist Commnt No 08/24/19 12:20 PT 13.2 Sec. (12.2-14.9) 08/24/19 12:20 INR 0.99 (0.87-1.13) 08/24/19 12:20 D-Dimer 932.05 ng/mlDDU (0-234) H 08/24/19 14:50 ABG pH 7.314 pH Units (7.350-7.450) L 08/24/19 14:15 ABG pCO2 34.3 mm Hg 08/24/19 14:15 ABG pO2 52.9 mm Hg (80.0-90.0) L 08/24/19 14:15 ABG HCO3 17.1 mmol/L (20.0-26.0) L 08/24/19 14:15 ABG O2 Saturation 84.0 % (95.0-99.0) L 08/24/19 14:15 ABG O2 Content 10.3 (0.0-44) 08/24/19 14:15 ABG Base Excess -8.3 mmol/L (-2.0-3.0) L 08/24/19 14:15 ABG Hemoglobin 8.9 gm/dl (12.0-16.0) L 08/24/19 14:15 ABG Carboxyhemoglobin 1.5 % (0.0-5.0) 08/24/19 14:15 ABG Methemoglobin 0.6 % (0.0-1.5) 08/24/19 14:15 VBG pH 7.291 (7.320-7.420) L 08/24/19 12:20 Oxyhemoglobin 82.2 % (95.0-99.0) L 08/24/19 14:15 FiO2 21 % 08/24/19 14:15 Sodium 136 mmol/L (137-145) L 08/25/19 10:07 Potassium 4.7 mmol/L (3.6-5.0) 08/25/19 10:07 Chloride 104.1 mmol/L (98-107) 08/25/19 10:07 Carbon Dioxide 13 mmol/L (22-30) L 08/25/19 10:07 Anion Gap 24 mmol/L 08/25/19 10:07 BUN 64 mg/dL (7-17) H 08/25/19 10:07 Creatinine 4.0 mg/dL (0.7-1.2) H 08/25/19 10:07 Estimated GFR 16 ml/min 08/25/19 10:07 BUN/Creatinine Ratio 16 % 08/25/19 10:07 Glucose 173 mg/dL (65-100) H 08/25/19 10:07 POC Glucose 141 (70-105) H 08/25/19 12:41 Lactic Acid 0.90 mmol/L (0.7-2.0) 08/24/19 14:50 Calcium 8.6 mg/dL (8.4-10.2) 08/25/19 10:07 Phosphorus 3.80 mg/dL (2.5-4.5) 08/25/19 10:07 Magnesium 2.10 mg/dL (1.7-2.3) 08/25/19 10:07 Ferritin 484.4 ng/mL (13.0-400.0) H 08/24/19 14:50 Total Bilirubin 0.20 mg/dL (0.1-1.2) 08/24/19 12:20 AST 32 units/L (5-40) 08/24/19 12:20 ALT 21 units/L (7-56) 08/24/19 12:20 Alkaline Phosphatase 86 units/L (35-129) 08/24/19 12:20 Lactate Dehydrogenase 485 units/L (91-180) H 08/24/19 14:50 C-Reactive Protein 6.60 mg/dL (0.00-1.30) H 08/24/19 14:50 Total Protein 8.3 g/dL (6.3-8.2) H 08/24/19 12:20 Albumin 3.1 g/dL (3.9-5) L 08/24/19 12:20 Albumin/Globulin Ratio 0.6 % 08/24/19 12:20 Lipase 92 units/L (13-60) H 08/24/19 12:20 Procalcitonin 0.29 ng/mL (<0.15) 08/24/19 14:50 HCG, Quant 0.569 mIU/mL (0-4) 08/24/19 12:20 PTH Intact 224.9 pg/mL (15-65) H 08/25/19 10:07 Urine Color Yellow (Yellow) 08/24/19 21:00 Urine Turbidity Slightly-cloudy (Clear) 08/24/19 21:00 Urine pH 5.0 (5.0-7.0) 08/24/19 21:00 Ur Specific [place] 1.009 (1.003-1.030) 08/24/19 21:00 Urine Protein 100 mg/dl mg/dL (Negative) 08/24/19 21:00 Urine Glucose (UA) Neg mg/dL (Negative) 08/24/19 21:00 Urine Ketones Neg mg/dL (Negative) 08/24/19 21:00 Urine Blood Mod (Negative) 08/24/19 21:00 Urine Nitrite Neg (Negative) 08/24/19 21:00 Urine Bilirubin Neg (Negative) 08/24/19 21:00 Urine Urobilinogen < 2.0 mg/dL (<2.0) 08/24/19 21:00 Ur Leukocyte Esterase Mod (Negative) 08/24/19 21:00 Urine WBC (Auto) 14.0 /HPF (0.0-6.0) H 08/24/19 21:00 Urine RBC (Auto) 5.0 /HPF (0.0-6.0) 08/24/19 21:00 U Epithel Cells (Auto) < 1.0 /HPF (0-13.0) 08/24/19 21:00 Urine Bacteria (Auto) 2+ /HPF (Negative) 08/24/19 21:00 Urine Mucus Few /HPF 08/24/19 21:00 Urine Creatinine 63.5 mg/dL (0.1-20.0) H 08/24/19 21:00 Urine Sodium 31 mmol/L 08/24/19 21:00 Coronavirus (PCR) Positive (Negative) A 08/25/19 11:21 Hepatitis A IgM Ab Non-reactive (NonReactive) 08/25/19 11:24 Hep Bs Antigen Non-reactive (Negative) 08/25/19 11:24 Hep B Core IgM Ab Non-reactive (NonReactive) 08/25/19 11:24 Hepatitis C Antibody Non-reactive (NonReactive) 08/25/19 11:24 Microbiology: Microbiology 08/24/19 12:20 Peripheral/Venous Blood Culture - Preliminary NO GROWTH AFTER 24 HOURS 08/24/19 12:20 Peripheral/Venous Blood Culture - Preliminary NO GROWTH AFTER 24 HOURS Irwin/IV: Voiding Method Toilet IV Catheter Type [Right Peripheral IV Antecubital] Active Medications - Current Medications Current Medications: Generic Name Dose Route Start Last Admin Trade Name Freq PRN Reason Stop Dose Admin Acetaminophen 650 mg 08/24/19 14:41 08/24/19 21:42 Tylenol PO 650 mg Q4H PRN Administration Pain MILD(1-3)/Fever >100.5/CLAIRE Amlodipine Besylate 10 mg 08/25/19 10:00 08/25/19 10:40 Amlodipine PO 10 mg QDAY ARLETH Administration Dextrose 0 ml 08/24/19 21:24 D50w (25gm) Syringe IV Q30MIN PRN Hypoglycemia Protocol Hydralazine HCl 5 mg 08/24/19 22:38 08/25/19 05:55 Apresoline IV 5 mg Q6H PRN Administration elevated bp Ceftriaxone Sodium 2 gm in 100 mls @ 200 mls/hr 08/24/19 15:00 08/25/19 10:38 Rocephin/Ns 2 Gm/100 Ml IV 200 mls/hr Q24HR ARLETH Administration Protocol Insulin Human Lispro 0 unit 08/25/19 00:00 08/25/19 13:29 Humalog SUB-Q Not Given Q6HR ARLETH Protocol Metoprolol Tartrate 50 mg 08/25/19 10:00 08/25/19 10:39 Metoprolol PO 50 mg BID ARLETH Administration Ondansetron HCl 4 mg 08/24/19 14:41 Zofran IV Q8H PRN Nausea And Vomiting Sodium Bicarbonate 1,300 mg 08/25/19 15:04 Sodium Bicarbonate PO TID ARLETH Sodium Chloride 10 ml 08/24/19 22:00 08/25/19 10:40 Sodium Chloride Flush Syringe 10 Ml IV 10 ml BID ARLETH Administration Sodium Chloride 10 ml 08/24/19 14:41 Sodium Chloride Flush Syringe 10 Ml IV PRN PRN LINE FLUSH
[2019-08-25] MEDS: SODIUM BICARBONATE 650 MG TAB PO SCH ×2 (17:40→20:30)
[2019-08-25 20:47] LABS: C-Reactive Protein 9.6 mg/dL (0.00-1.30)
[2019-08-25] MEDS: ACETAMINOPHEN 325 MG TAB PO PRN (22:01)
[2019-08-26 04:03] LABS: Calcium 8.4 mg/dL (8.4-10.2)
[2019-08-26] MEDS: INSULIN LISPRO 100 UNIT/ML SUB-Q SCH ×4 (06:16→23:56)
[2019-08-26] MEDS: cefTRIAXone/NS 2 GM/100 ML 2 GM/100 ML BAG IV SCH ×2 (08:33→09:26)
[2019-08-26] MEDS: SODIUM BICARBONATE 650 MG TAB PO SCH ×3 (09:26→20:02)
[2019-08-26] MEDS: amLODIPine 10 MG TAB PO SCH (09:29)
[2019-08-26] MEDS: METOPROLOL TARTRATE 50 MG TAB PO SCH ×2 (09:29→22:19)
--- NOTE | 2019-08-26 10:37 | Progress Note ---
Assessment and Plan Cultures: 08/24/2019 blood culture: Negative COVID-19 PCR: Positive Urine culture: GNR. A/P: 28-year-old female with obesity, diabetes mellitus: #COVID-19 disease: Procalcitonin elevation could be due to renal failure. #Acute hypoxic respiratory failure: Requiring nasal cannula oxygen #Acute renal failure: ?volume related #Nausea, vomiting diarrhea: could be from COVID-19. #?UTI: mild pyuria, culture positive. Anyways has been on Ceftriaxone. Recs: Continue ceftriaxone for now, although, slight procalcitonin elevation could be due to renal failure Markers not very elevated. No clear benefit with Plaquenil so will hold off trend ferritin, LDH, d-dimer, CRP every 2-3 days for risk stratification and to assess disease progression along with procalcitonin Maykel Pelletier MD, FACP [facility] C: [phone] O: [phone] F: [phone] Subjective Date of service: 08/26/19 Interval history: Low grade fever. On Oxygen by nasal cannula. Objective - Exam Narrative Exam: Physical Exam (reviewed in chart due to PPE conservation) Constitutional: limited due to PPE conservation strategy Head, Ears, Nose: limited due to PPE conservation strategy Eyes: limited due to PPE conservation strategy Neck: limited due to PPE conservation strategy Oral: limited due to PPE conservation strategy Cardiovascular: limited due to PPE conservation strategy Respiratory: limited due to PPE conservation strategy GI: limited due to PPE conservation strategy Musculoskeletal: limited due to PPE conservation strategy Skin: limited due to PPE conservation strategy Hem/Lymphatic: limited due to PPE conservation strategy Psych: limited due to PPE conservation strategy Neurological: limited due to PPE conservation strategy - Constitutional Vitals: Vital Signs Temp Pulse Resp BP Pulse Ox 99.3 F 95 H 18 152/90 97 08/26/19 05:11 08/26/19 09:29 08/26/19 05:11 08/26/19 09:29 08/26/19 05:11 Temperature -Last 24 Hours Temperature 99.3 F Temperature 100.3 F Temperature 97.0 F Temperature 98.5 F - Labs CBC & Chem 7: 08/24/19 12:20 08/26/19 03:33 Labs: Abnormal lab results 08/25/19 08/25/19 08/25/19 Range/Units 10:07 10:07 11:21 D-Dimer (0-234) ng/mlDDU Sodium 136 L (137-145) mmol/L Carbon Dioxide 13 L (22-30) mmol/L BUN 64 H (7-17) mg/dL Creatinine 4.0 H (0.7-1.2) mg/dL Glucose 173 H (65-100) mg/dL POC Glucose (70-105) Ferritin (13.0-400.0) ng/mL Lactate Dehydrogenase (91-180) units/L C-Reactive Protein (0.00-1.30) mg/dL PTH Intact 224.9 H (15-65) pg/mL Coronavirus (PCR) Positive A (Negative) 08/25/19 08/25/19 08/25/19 Range/Units 12:41 17:00 20:03 D-Dimer 932.05 H (0-234) ng/mlDDU Sodium (137-145) mmol/L Carbon Dioxide (22-30) mmol/L BUN (7-17) mg/dL Creatinine (0.7-1.2) mg/dL Glucose (65-100) mg/dL POC Glucose 141 H 186 H (70-105) Ferritin (13.0-400.0) ng/mL Lactate Dehydrogenase (91-180) units/L C-Reactive Protein (0.00-1.30) mg/dL PTH Intact (15-65) pg/mL Coronavirus (PCR) (Negative) 08/25/19 08/25/19 08/25/19 Range/Units 20:03 20:03 23:21 D-Dimer (0-234) ng/mlDDU Sodium (137-145) mmol/L Carbon Dioxide (22-30) mmol/L BUN (7-17) mg/dL Creatinine (0.7-1.2) mg/dL Glucose (65-100) mg/dL POC Glucose 220 H (70-105) Ferritin 517.9 H (13.0-400.0) ng/mL Lactate Dehydrogenase 462 H (91-180) units/L C-Reactive Protein 9.60 H (0.00-1.30) mg/dL PTH Intact (15-65) pg/mL Coronavirus (PCR) (Negative) 08/26/19 08/26/19 Range/Units 03:33 05:22 D-Dimer (0-234) ng/mlDDU Sodium 135 L (137-145) mmol/L Carbon Dioxide 18 L (22-30) mmol/L BUN 62 H (7-17) mg/dL Creatinine 3.8 H (0.7-1.2) mg/dL Glucose 205 H (65-100) mg/dL POC Glucose 197 H (70-105) Ferritin (13.0-400.0) ng/mL Lactate Dehydrogenase (91-180) units/L C-Reactive Protein (0.00-1.30) mg/dL PTH Intact (15-65) pg/mL Coronavirus (PCR) (Negative)
--- NOTE | 2019-08-26 12:55 | Progress Note ---
Assessment and Plan 1. 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 Patient with known h/o CKD. No prior labs are available. Creatinine level is slightly better today. Monitor renal function. Renal prognosis is guarded. Avoid nephrotoxic agents. Meds dosage based on GFR. 2. FEN: Metabolic acidosis, on Sodium bicarbonate. Monitor lytes and volume status. 3. Acute hypoxemic respiratory failure: Likely 2/2 PNA. Supplemental O2. 4. Right lower lobe pneumonia: Pneumonia protocol. 5. COVID-19 virus infection. 6. Diabetes mellitus type 1. 7. Uncontrolled Hypertension: Continue Amlodipine and Metoprolol. BP is better. 8. Microcytic Anemia, POA. - Subjective Patient was seen and examined from the doorside, to prevent spread of COVID-19. PPE is N/A Doing ok. - General Appearance General appearance: well-developed, well-nourished, appears stated age, obese, no distress HEENT: ATNC, hearing intact Neurologic: alert and oriented x3, conversing, able to move extremities Ext: no edema Psychiatric: cooperative Subjective Date of service: 08/26/19 Objective - Vital Signs Vital signs: Vital Signs - 12hr 08/26/19 08/26/19 08/26/19 03:00 05:11 09:29 Temperature 99.3 F Pulse Rate 95 H 95 H Respiratory 18 Rate Blood Pressure 155/91 152/90 O2 Sat by Pulse 96 97 Oximetry 08/26/19 08/26/19 11:09 11:38 Temperature 98.6 F Pulse Rate 85 Respiratory 20 Rate Blood Pressure 147/82 O2 Sat by Pulse 96 98 Oximetry - Lab 08/24/19 12:20 08/28/19 05:22 Most recent lab results ABG pH 7.314 pH Units (7.350-7.450) L 08/24/19 14:15 ABG pCO2 34.3 mm Hg 08/24/19 14:15 ABG pO2 52.9 mm Hg (80.0-90.0) L 08/24/19 14:15 ABG HCO3 17.1 mmol/L (20.0-26.0) L 08/24/19 14:15 ABG O2 Saturation 84.0 % (95.0-99.0) L 08/24/19 14:15 Calcium 8.4 mg/dL (8.4-10.2) 08/26/19 03:33 Phosphorus 3.80 mg/dL (2.5-4.5) 08/25/19 10:07 Magnesium 2.10 mg/dL (1.7-2.3) 08/25/19 10:07 Urine Creatinine 63.5 mg/dL (0.1-20.0) H 08/24/19 21:00 Urine Sodium 31 mmol/L 08/24/19 21:00 Medications & Allergies - Medications Allergies/Adverse Reactions: Allergies No Known Allergies Allergy (Unverified 08/24/19 12:03) Home Medications: Home Medications Medication Instructions Recorded Confirmed Last Taken Type HumaLOG 10 units SQ TID 08/24/19 08/24/19 08/22/19 19:00 History Active Medications: Generic Name Dose Route Start Last Admin Trade Name Freq PRN Reason Stop Dose Admin Acetaminophen 650 mg 08/24/19 14:41 08/25/19 22:01 Tylenol PO 650 mg Q4H PRN Administration Pain MILD(1-3)/Fever >100.5/CLAIRE Amlodipine Besylate 10 mg 08/25/19 10:00 08/26/19 09:29 Amlodipine PO 10 mg QDAY ARLETH Administration Dextrose 0 ml 08/24/19 21:24 D50w (25gm) Syringe IV Q30MIN PRN Hypoglycemia Protocol Hydralazine HCl 5 mg 08/24/19 22:38 08/25/19 22:11 Apresoline IV 5 mg Q6H PRN Administration elevated bp Ceftriaxone Sodium 2 gm in 100 mls @ 200 mls/hr 08/24/19 15:00 08/26/19 09:26 Rocephin/Ns 2 Gm/100 Ml IV 200 mls/hr Q24HR ARLETH Administration Protocol Insulin Human Lispro 0 unit 08/25/19 00:00 08/26/19 12:03 Humalog SUB-Q 3 unit Q6HR ARLETH Administration Protocol Metoprolol Tartrate 50 mg 08/25/19 10:00 08/26/19 09:29 Metoprolol PO 50 mg BID ARLETH Administration Ondansetron HCl 4 mg 08/24/19 14:41 Zofran IV Q8H PRN Nausea And Vomiting Sodium Bicarbonate 1,300 mg 08/25/19 15:04 08/26/19 09:26 Sodium Bicarbonate PO 1,300 mg TID ARLETH Administration Sodium Chloride 10 ml 08/24/19 22:00 08/26/19 09:30 Sodium Chloride Flush Syringe 10 Ml IV 10 ml BID ARLETH Administration Sodium Chloride 10 ml 08/24/19 14:41 Sodium Chloride Flush Syringe 10 Ml IV PRN PRN LINE FLUSH
--- NOTE | 2019-08-26 14:15 | Progress Note ---
Assessment and Plan Assessment and plan: Patient is a 28 yo woman with a history of DM type 2 and obesity who presents to [facility] ED with nausea, multiple episodes of vomiting, loss of taste and multiple loose stools for 3 days prior to arrival. Patient transported to [facility] via private vehicle for further care and evaluation. Chest x-ray shows right lower lobe infiltrate. Patient found to have a pulse oximetry of 85% on room air consistent with acute hypoxemic respiratory failure complicated by pneumonia * pCXR findings: Mild central vascular congestion and streaky right basilar airspace disease. Acute hypoxic respiratory failure: try to wean down from 3 liters O2 COVID-19 disease RLL early pneumonia: Procalcitonin elevation could be due to renal failure vs Right foot ulcer Acute renal failure/CKD 4, suspected vasomotor nephropathy: Nephrology input noted Nausea, vomiting diarrhea: could be from COVID-19: treat with anti-emetics Type I Diabetes mellitus: Sliding scale insulin therapy, Accu-Chek, consistent carbohydrate diet, hypoglycemia protocol. Morbid obesity, bmi 42.6: agency legal counsel on weight reduction. Nonhealing right foot DM ulcer: cleansed with wound cleanser, packed with dermagran, covered with 4x4 gauze and wrap with kerlix. Education provided to patient on foot care. Patient verbalized understanding. DVT prophylaxis: add sq lovenox 08/25/19: COVID-19 positive, start protocol. ID following 08/26/19: Continue abx, try to wean off 3 liters of O2, I called Wound care phys zeynep, Dr. Reyez, ordered arterial dopplers and he will see tomorrow to decide about MRI. Urine growing Klebsiella pneumonia on IV rocephin, await sensitivities, d/w Dr. Pelletier, ID History Interval history: Patient was seen and examined. Follow-up on current diagnosis of COVID pneumonia. Overnight uneventful as no events directly reported to me. Patient denies any chest pain, nausea/vomiting or severe headaches. Imaging, nursing note, chart, labs and old chart reviewed. Discussed with patient. Hospitalist Physical - Physical exam Narrative exam: Gen: ill appearing, mild distress, morbid obesity BMI 42.6, NAD, Awake, Alert, Orientated HEENT: NCAT, EOMI, PERRL, OP Clear Neck: supple, no adenopathy, no thyromegaly, no JVD CVS/Heart: RRR, normal S1S2, pulses present bilaterally Chest/Lungs: diminished with inspiratory crackles, Symmetrical chest expansion, good air entry bilaterally GI/Abdomen: soft, NTND, good bowel sounds, no guarding or rebound /Bladder: no suprapubic tenderness, no CVA or paraspinal tenderness Extermity/Skin: Patient presented with a right planter foot diabetic ulcer measuring 2.5x1.5x1.5cm with odor and yellow drainage and dark sukumar-wound callus around edges. MSK: FROM x 4 Neuro: CN 2-12 grossly intact, no new focal deficits Psych: calm - Constitutional Vitals: Temp Pulse Resp BP Pulse Ox 98.6 F 85 20 147/82 98 08/26/19 11:38 08/26/19 11:38 08/26/19 11:38 08/26/19 11:38 08/26/19 11:38 General appearance: Absent: mild distress, cachectic Results - Labs CBC & Chem 7: 08/24/19 12:20 08/26/19 03:33 Labs: Laboratory Last Values WBC 7.9 K/mm3 (4.5-11.0) 08/24/19 12:20 RBC 4.20 M/mm3 (3.65-5.03) 08/24/19 12:20 Hgb 9.8 gm/dl (10.1-14.3) L 08/24/19 12:20 Hct 29.8 % (30.3-42.9) L 08/24/19 12:20 MCV 71 fl (79-97) L 08/24/19 12:20 MCH 23 pg (28-32) L 08/24/19 12:20 MCHC 33 % (30-34) 08/24/19 12:20 RDW 16.0 % (13.2-15.2) H 08/24/19 12:20 Plt Count 388 K/mm3 (140-440) 08/24/19 12:20 Add Manual Diff Complete 08/24/19 12:20 Total Counted 100 08/24/19 12:20 Seg Neuts % (Manual) 78.0 % (40.0-70.0) H 08/24/19 12:20 Band Neutrophils % 5.0 % 08/24/19 12:20 Lymphocytes % (Manual) 11.0 % (13.4-35.0) L 08/24/19 12:20 Reactive Lymphs % (Man) 1.0 % 08/24/19 12:20 Monocytes % (Manual) 5.0 % (0.0-7.3) 08/24/19 12:20 Eosinophils % (Manual) 0 % (0.0-4.3) 08/24/19 12:20 Basophils % (Manual) 0 % (0.0-1.8) 08/24/19 12:20 Metamyelocytes % 0 % 08/24/19 12:20 Myelocytes % 0 % 08/24/19 12:20 Promyelocytes % 0 % 08/24/19 12:20 Blast Cells % 0 % 08/24/19 12:20 Nucleated RBC % Not Reportable 08/24/19 12:20 Seg Neutrophils # Man 6.2 K/mm3 (1.8-7.7) 08/24/19 12:20 Band Neutrophils # 0.4 K/mm3 08/24/19 12:20 Lymphocytes # (Manual) 0.9 K/mm3 (1.2-5.4) L 08/24/19 12:20 Abs React Lymphs (Man) 0.1 K/mm3 08/24/19 12:20 Monocytes # (Manual) 0.4 K/mm3 (0.0-0.8) 08/24/19 12:20 Eosinophils # (Manual) 0.0 K/mm3 (0.0-0.4) 08/24/19 12:20 Basophils # (Manual) 0.0 K/mm3 (0.0-0.1) 08/24/19 12:20 Metamyelocytes # 0.0 K/mm3 08/24/19 12:20 Myelocytes # 0.0 K/mm3 08/24/19 12:20 Promyelocytes # 0.0 K/mm3 08/24/19 12:20 Blast Cells # 0.0 K/mm3 08/24/19 12:20 WBC Morphology Not Reportable 08/24/19 12:20 Hypersegmented Neuts Not Reportable 08/24/19 12:20 Hyposegmented Neuts Not Reportable 08/24/19 12:20 Hypogranular Neuts Not Reportable 08/24/19 12:20 Smudge Cells Not Reportable 08/24/19 12:20 Toxic Granulation Not Reportable 08/24/19 12:20 Toxic Vacuolation Not Reportable 08/24/19 12:20 Dohle Bodies Not Reportable 08/24/19 12:20 Pelger-Huet Anomaly Not Reportable 08/24/19 12:20 Lay[place] Rods Not Reportable 08/24/19 12:20 Platelet Estimate Consistent w auto 08/24/19 12:20 Clumped Platelets Rare 08/24/19 12:20 Plt Clumps, EDTA Not Reportable 08/24/19 12:20 Large Platelets Not Reportable 08/24/19 12:20 Giant Platelets Not Reportable 08/24/19 12:20 Platelet Satelliting Not Reportable 08/24/19 12:20 Plt Morphology Comment Not Reportable 08/24/19 12:20 RBC Morphology Not Reportable 08/24/19 12:20 Dimorphic RBCs Not Reportable 08/24/19 12:20 Polychromasia Not Reportable 08/24/19 12:20 Hypochromasia 1+ 08/24/19 12:20 Poikilocytosis Not Reportable 08/24/19 12:20 Anisocytosis Not Reportable 08/24/19 12:20 Microcytosis 1+ 08/24/19 12:20 Macrocytosis Not Reportable 08/24/19 12:20 Spherocytes Not Reportable 08/24/19 12:20 Pappenheimer Bodies Not Reportable 08/24/19 12:20 Sickle Cells Not Reportable 08/24/19 12:20 Target Cells Not Reportable 08/24/19 12:20 Tear Drop Cells Not Reportable 08/24/19 12:20 Ovalocytes Not Reportable 08/24/19 12:20 Helmet Cells Not Reportable 08/24/19 12:20 Hutchinson-Datil Bodies Not Reportable 08/24/19 12:20 [place] Rings Not Reportable 08/24/19 12:20 Monica Cells Not Reportable 08/24/19 12:20 Bite Cells Not Reportable 08/24/19 12:20 Crenated Cell Not Reportable 08/24/19 12:20 Elliptocytes Not Reportable 08/24/19 12:20 Acanthocytes (Spur) Not Reportable 08/24/19 12:20 Rouleaux Not Reportable 08/24/19 12:20 Hemoglobin C Crystals Not Reportable 08/24/19 12:20 Schistocytes Not Reportable 08/24/19 12:20 Malaria parasites Not Reportable 08/24/19 12:20 ESR Cancelled 08/24/19 12:20 Hiram Bodies Not Reportable 08/24/19 12:20 Hem Pathologist Commnt No 08/24/19 12:20 PT 13.2 Sec. (12.2-14.9) 08/24/19 12:20 INR 0.99 (0.87-1.13) 08/24/19 12:20 D-Dimer 932.05 ng/mlDDU (0-234) H 08/25/19 20:03 ABG pH 7.314 pH Units (7.350-7.450) L 08/24/19 14:15 ABG pCO2 34.3 mm Hg 08/24/19 14:15 ABG pO2 52.9 mm Hg (80.0-90.0) L 08/24/19 14:15 ABG HCO3 17.1 mmol/L (20.0-26.0) L 08/24/19 14:15 ABG O2 Saturation 84.0 % (95.0-99.0) L 08/24/19 14:15 ABG O2 Content 10.3 (0.0-44) 08/24/19 14:15 ABG Base Excess -8.3 mmol/L (-2.0-3.0) L 08/24/19 14:15 ABG Hemoglobin 8.9 gm/dl (12.0-16.0) L 08/24/19 14:15 ABG Carboxyhemoglobin 1.5 % (0.0-5.0) 08/24/19 14:15 ABG Methemoglobin 0.6 % (0.0-1.5) 08/24/19 14:15 VBG pH 7.291 (7.320-7.420) L 08/24/19 12:20 Oxyhemoglobin 82.2 % (95.0-99.0) L 08/24/19 14:15 FiO2 21 % 08/24/19 14:15 Sodium 135 mmol/L (137-145) L 08/26/19 03:33 Potassium 4.7 mmol/L (3.6-5.0) 08/26/19 03:33 Chloride 105.3 mmol/L (98-107) 08/26/19 03:33 Carbon Dioxide 18 mmol/L (22-30) L 08/26/19 03:33 Anion Gap 16 mmol/L 08/26/19 03:33 BUN 62 mg/dL (7-17) H 08/26/19 03:33 Creatinine 3.8 mg/dL (0.7-1.2) H 08/26/19 03:33 Estimated GFR 17 ml/min 08/26/19 03:33 BUN/Creatinine Ratio 16 % 08/26/19 03:33 Glucose 205 mg/dL (65-100) H 08/26/19 03:33 POC Glucose 225 (70-105) H 08/26/19 11:51 Lactic Acid 0.90 mmol/L (0.7-2.0) 08/24/19 14:50 Calcium 8.4 mg/dL (8.4-10.2) 08/26/19 03:33 Phosphorus 3.80 mg/dL (2.5-4.5) 08/25/19 10:07 Magnesium 2.10 mg/dL (1.7-2.3) 08/25/19 10:07 Ferritin 517.9 ng/mL (13.0-400.0) H 08/25/19 20:03 Total Bilirubin 0.20 mg/dL (0.1-1.2) 08/24/19 12:20 AST 32 units/L (5-40) 08/24/19 12:20 ALT 21 units/L (7-56) 08/24/19 12:20 Alkaline Phosphatase 86 units/L (35-129) 08/24/19 12:20 Lactate Dehydrogenase 462 units/L (91-180) H 08/25/19 20:03 C-Reactive Protein 9.60 mg/dL (0.00-1.30) H 08/25/19 20:03 Total Protein 8.3 g/dL (6.3-8.2) H 08/24/19 12:20 Albumin 3.1 g/dL (3.9-5) L 08/24/19 12:20 Albumin/Globulin Ratio 0.6 % 08/24/19 12:20 Lipase 92 units/L (13-60) H 08/24/19 12:20 Procalcitonin 0.29 ng/mL (<0.15) 08/24/19 14:50 HCG, Quant 0.569 mIU/mL (0-4) 08/24/19 12:20 PTH Intact 224.9 pg/mL (15-65) H 08/25/19 10:07 Urine Color Yellow (Yellow) 08/24/19 21:00 Urine Turbidity Slightly-cloudy (Clear) 08/24/19 21:00 Urine pH 5.0 (5.0-7.0) 08/24/19 21:00 Ur Specific [place] 1.009 (1.003-1.030) 08/24/19 21:00 Urine Protein 100 mg/dl mg/dL (Negative) 08/24/19 21:00 Urine Glucose (UA) Neg mg/dL (Negative) 08/24/19 21:00 Urine Ketones Neg mg/dL (Negative) 08/24/19 21:00 Urine Blood Mod (Negative) 08/24/19 21:00 Urine Nitrite Neg (Negative) 08/24/19 21:00 Urine Bilirubin Neg (Negative) 08/24/19 21:00 Urine Urobilinogen < 2.0 mg/dL (<2.0) 08/24/19 21:00 Ur Leukocyte Esterase Mod (Negative) 08/24/19 21:00 Urine WBC (Auto) 14.0 /HPF (0.0-6.0) H 08/24/19 21:00 Urine RBC (Auto) 5.0 /HPF (0.0-6.0) 08/24/19 21:00 U Epithel Cells (Auto) < 1.0 /HPF (0-13.0) 08/24/19 21:00 Urine Bacteria (Auto) 2+ /HPF (Negative) 08/24/19 21:00 Urine Mucus Few /HPF 08/24/19 21:00 Urine Creatinine 63.5 mg/dL (0.1-20.0) H 08/24/19 21:00 Urine Sodium 31 mmol/L 08/24/19 21:00 Coronavirus (PCR) Positive (Negative) A 08/25/19 11:21 Hepatitis A IgM Ab Non-reactive (NonReactive) 08/25/19 11:24 Hep Bs Antigen Non-reactive (Negative) 08/25/19 11:24 Hep B Core IgM Ab Non-reactive (NonReactive) 08/25/19 11:24 Hepatitis C Antibody Non-reactive (NonReactive) 08/25/19 11:24 Microbiology: Microbiology 08/24/19 12:20 Peripheral/Venous Blood Culture - Preliminary NO GROWTH AFTER 48 HOURS 08/24/19 12:20 Peripheral/Venous Blood Culture - Preliminary NO GROWTH AFTER 48 HOURS 08/24/19 21:00 Urine,Clean Catch Urine Culture - Preliminary Klebsiella Pneumoniae Irwin/IV: Voiding Method Toilet IV Catheter Type [Left INT / Saline Lock Antecubital] IV Catheter Type [Right Peripheral IV Antecubital] Active Medications - Current Medications Current Medications: Generic Name Dose Route Start Last Admin Trade Name Freq PRN Reason Stop Dose Admin Acetaminophen 650 mg 08/24/19 14:41 08/25/19 22:01 Tylenol PO 650 mg Q4H PRN Administration Pain MILD(1-3)/Fever >100.5/CLAIRE Amlodipine Besylate 10 mg 08/25/19 10:00 08/26/19 09:29 Amlodipine PO 10 mg QDAY ARLETH Administration Dextrose 0 ml 08/24/19 21:24 D50w (25gm) Syringe IV Q30MIN PRN Hypoglycemia Protocol Hydralazine HCl 5 mg 08/24/19 22:38 08/25/19 22:11 Apresoline IV 5 mg Q6H PRN Administration elevated bp Ceftriaxone Sodium 2 gm in 100 mls @ 200 mls/hr 08/24/19 15:00 08/26/19 09:26 Rocephin/Ns 2 Gm/100 Ml IV 200 mls/hr Q24HR ARLETH Administration Protocol Insulin Human Lispro 0 unit 08/25/19 00:00 08/26/19 12:03 Humalog SUB-Q 3 unit Q6HR ARLETH Administration Protocol Metoprolol Tartrate 50 mg 08/25/19 10:00 08/26/19 09:29 Metoprolol PO 50 mg BID ARLETH Administration Ondansetron HCl 4 mg 08/24/19 14:41 Zofran IV Q8H PRN Nausea And Vomiting Sodium Bicarbonate 1,300 mg 08/25/19 15:04 08/26/19 13:20 Sodium Bicarbonate PO 1,300 mg TID ARLETH Administration Sodium Chloride 10 ml 08/24/19 22:00 08/26/19 09:30 Sodium Chloride Flush Syringe 10 Ml IV 10 ml BID ARLETH Administration Sodium Chloride 10 ml 08/24/19 14:41 Sodium Chloride Flush Syringe 10 Ml IV PRN PRN LINE FLUSH
[2019-08-26] MEDS: metroNIDAZOLE/NS 500 MG/100 ML 500 MG/100 ML BAG IV SCH ×2 (15:14→21:26)
[2019-08-26] MEDS: ACETAMINOPHEN 325 MG TAB PO PRN (22:22)
[2019-08-26] MEDS: hydrALAZINE 20 MG/1 ML INJ IV PRN (22:23)
[2019-08-27 04:22] LABS: Calcium 8.3 mg/dL (8.4-10.2)
[2019-08-27 05:07] LABS: C-Reactive Protein 9.7 mg/dL (0.00-1.30)
[2019-08-27] MEDS: INSULIN LISPRO 100 UNIT/ML SUB-Q SCH ×3 (05:52→17:36)
[2019-08-27] MEDS: metroNIDAZOLE/NS 500 MG/100 ML 500 MG/100 ML BAG IV SCH ×3 (06:15→23:17)
[2019-08-27] MEDS: cefTRIAXone/NS 2 GM/100 ML 2 GM/100 ML BAG IV SCH (09:40)
[2019-08-27] MEDS: amLODIPine 10 MG TAB PO SCH (09:41)
[2019-08-27] MEDS: SODIUM BICARBONATE 650 MG TAB PO SCH ×3 (09:41→22:20)
[2019-08-27] MEDS: METOPROLOL TARTRATE 50 MG TAB PO SCH ×2 (09:41→23:16)
--- NOTE | 2019-08-27 09:50 | Progress Note ---
Assessment and Plan 1. 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 Patient with known h/o CKD. No prior labs are available. Creatinine level is improving. Monitor renal function. Renal prognosis is guarded. Avoid nephrotoxic agents. Meds dosage based on GFR. 2. FEN: Metabolic acidosis, improving on Sodium bicarbonate. Monitor lytes and volume status. 3. Acute hypoxemic respiratory failure: Likely 2/2 PNA. Supplemental O2. 4. Right lower lobe pneumonia: Pneumonia protocol. 5. COVID-19 virus infection. 6. Diabetes mellitus type 1. 7. Uncontrolled Hypertension: Continue Amlodipine and Metoprolol. BP is better. 8. Microcytic Anemia, POA. - Subjective Patient was seen and examined from the doorside, to prevent spread of COVID-19. PPE is N/A Doing ok. - General Appearance General appearance: well-developed, well-nourished, appears stated age, obese, no distress HEENT: ATNC, hearing intact Neurologic: alert and oriented x3, conversing, able to move extremities Ext: no edema Psychiatric: cooperative Subjective Date of service: 08/27/19 Objective - Vital Signs Vital signs: Vital Signs - 12hr 08/26/19 08/26/19 08/26/19 22:06 22:19 22:23 Temperature 100.8 F H Pulse Rate 93 H 93 H 93 H Respiratory 20 Rate Blood Pressure 167/91 167/91 Blood Pressure 167/91 [Left] O2 Sat by Pulse 97 Oximetry 08/26/19 08/27/19 23:00 05:50 Temperature 98.6 F Pulse Rate 86 Respiratory 20 Rate Blood Pressure Blood Pressure 138/74 [Left] O2 Sat by Pulse 98 98 Oximetry - Lab 08/24/19 12:20 08/28/19 05:22 Most recent lab results ABG pH 7.314 pH Units (7.350-7.450) L 08/24/19 14:15 ABG pCO2 34.3 mm Hg 08/24/19 14:15 ABG pO2 52.9 mm Hg (80.0-90.0) L 08/24/19 14:15 ABG HCO3 17.1 mmol/L (20.0-26.0) L 08/24/19 14:15 ABG O2 Saturation 84.0 % (95.0-99.0) L 08/24/19 14:15 Calcium 8.3 mg/dL (8.4-10.2) L 08/27/19 03:52 Phosphorus 3.80 mg/dL (2.5-4.5) 08/25/19 10:07 Magnesium 2.10 mg/dL (1.7-2.3) 08/25/19 10:07 Urine Creatinine 63.5 mg/dL (0.1-20.0) H 08/24/19 21:00 Urine Sodium 31 mmol/L 08/24/19 21:00 Medications & Allergies - Medications Allergies/Adverse Reactions: Allergies No Known Allergies Allergy (Unverified 08/24/19 12:03) Home Medications: Home Medications Medication Instructions Recorded Confirmed Last Taken Type HumaLOG 10 units SQ TID 08/24/19 08/24/19 08/22/19 19:00 History Active Medications: Generic Name Dose Route Start Last Admin Trade Name Freq PRN Reason Stop Dose Admin Acetaminophen 650 mg 08/24/19 14:41 08/26/19 22:22 Tylenol PO 650 mg Q4H PRN Administration Pain MILD(1-3)/Fever >100.5/CLAIRE Amlodipine Besylate 10 mg 08/25/19 10:00 08/27/19 09:41 Amlodipine PO 10 mg QDAY ARLETH Administration Dextrose 0 ml 08/24/19 21:24 D50w (25gm) Syringe IV Q30MIN PRN Hypoglycemia Protocol Hydralazine HCl 5 mg 08/24/19 22:38 08/26/19 22:23 Apresoline IV 5 mg Q6H PRN Administration elevated bp Ceftriaxone Sodium 2 gm in 100 mls @ 200 mls/hr 08/24/19 15:00 08/27/19 09:40 Rocephin/Ns 2 Gm/100 Ml IV 200 mls/hr Q24HR ARLETH Administration Protocol Metronidazole 500 mg in 100 mls @ 100 mls/hr 08/26/19 15:00 08/27/19 06:15 Flagyl 500 Mg/100 Ml IV 100 mls/hr Q8HR [facility] Administration Protocol Insulin Human Lispro 0 unit 08/25/19 00:00 08/27/19 05:52 Humalog SUB-Q Not Given Q6HR [facility] Protocol Metoprolol Tartrate 50 mg 08/25/19 10:00 08/27/19 09:41 Metoprolol PO 50 mg BID [facility] Administration Ondansetron HCl 4 mg 08/24/19 14:41 Zofran IV Q8H PRN Nausea And Vomiting Sodium Bicarbonate 1,300 mg 08/25/19 15:04 08/27/19 09:41 Sodium Bicarbonate PO 1,300 mg TID [facility] Administration Sodium Chloride 10 ml 08/24/19 22:00 08/27/19 09:41 Sodium Chloride Flush Syringe 10 Ml IV 10 ml BID [facility] Administration Sodium Chloride 10 ml 08/24/19 14:41 Sodium Chloride Flush Syringe 10 Ml IV PRN PRN LINE FLUSH
--- NOTE | 2019-08-27 11:10 | Consultation ---
History of Present Illness Consult date: 08/27/19 - History of present illness History of present illness: 28 yo diabetic female with a right plantar DFU. Past History Past Medical History: diabetes, hypertension, renal failure Medications and Allergies Allergies Allergy/AdvReac Type Severity Reaction Status Date / Time No Known Allergies Allergy Unverified 08/24/19 12:03 Home Medications Medication Instructions Recorded Confirmed Last Taken Type HumaLOG 10 units SQ TID 08/24/19 08/24/19 08/22/19 19:00 History Active Meds: Active Medications Acetaminophen (Tylenol) 650 mg PO Q4H PRN PRN Reason: Pain MILD(1-3)/Fever >100.5/CLAIRE Last Admin: 08/26/19 22:22 Dose: 650 mg Documented by: Amlodipine Besylate (Amlodipine) 10 mg PO QDAY [facility] Last Admin: 08/27/19 09:41 Dose: 10 mg Documented by: Dextrose (D50w (25gm) Syringe) 0 ml IV Q30MIN PRN; Protocol PRN Reason: Hypoglycemia Hydralazine HCl (Apresoline) 5 mg IV Q6H PRN PRN Reason: elevated bp Last Admin: 08/26/19 22:23 Dose: 5 mg Documented by: Ceftriaxone Sodium (Rocephin/Ns 2 Gm/100 Ml) 2 gm in 100 mls @ 200 mls/hr IV Q24HR [facility]; Protocol Last Admin: 08/27/19 09:40 Dose: 200 mls/hr Documented by: Metronidazole (Flagyl 500 Mg/100 Ml) 500 mg in 100 mls @ 100 mls/hr IV Q8HR [facility]; Protocol Last Admin: 08/27/19 06:15 Dose: 100 mls/hr Documented by: Insulin Human Lispro (Humalog) 0 unit SUB-Q Q6HR [facility]; Protocol Last Admin: 08/27/19 05:52 Dose: Not Given Documented by: Metoprolol Tartrate (Metoprolol) 50 mg PO BID [facility] Last Admin: 08/27/19 09:41 Dose: 50 mg Documented by: Ondansetron HCl (Zofran) 4 mg IV Q8H PRN PRN Reason: Nausea And Vomiting Sodium Bicarbonate (Sodium Bicarbonate) 1,300 mg PO TID [facility] Last Admin: 08/27/19 09:41 Dose: 1,300 mg Documented by: Sodium Chloride (Sodium Chloride Flush Syringe 10 Ml) 10 ml IV BID [facility] Last Admin: 08/27/19 09:41 Dose: 10 ml Documented by: Sodium Chloride (Sodium Chloride Flush Syringe 10 Ml) 10 ml IV PRN PRN PRN Reason: LINE FLUSH Review of Systems All systems: negative (none) Exam Vital Signs Temp Pulse Resp BP Pulse Ox 98.4 F 109 H 18 149/87 96 08/24/19 11:57 08/24/19 11:57 08/24/19 11:57 08/24/19 11:57 08/24/19 11:57 - General physical appearance Positive: well developed, well nourished, no distress - Eyes Positive: PERRL, normal occular movement - ENT Positive: normal pinna, normal nares, normal mucosa, no hearing loss, no congestion - Neck Positive: no masses, no bruits, trachea midline, no venous distension - Respiratory Positive: normal expansion, normal respiratory effort, clear to auscultation - Cardiovascular Rhythm: regular Heart Sounds: Present: S1 & S2. Absent: rub, click - Extremities Extremities: no ischemia, pulses symmetrical, No edema - Breasts Breasts: deferred - Abdomen Abdomen: Present: soft, bowel sounds normal. Absent: tender, distended Hernia: none - Genitourinary Female Genitourinary: deferred - Integumentary other (There is a 3 X 1.5 X 0.7 cm right plantar ulcer. Heaped up callous surrounds the open area. There is no drainage or signs of infection. The ulcer appears to extend into the SQ tissue. ) - Neurologic Neurologic: alert and oriented to time, place and person, motor strength and sensation are grossly intact - Musculoskeletal normal gait, normal posture - Psychiatric Psychiatric: appropriate mood/affect, intact judgment & insight Results - Labs 08/24/19 12:20 08/27/19 03:52 Abnormal lab results 08/26/19 08/26/19 08/26/19 Range/Units 11:51 17:04 23:15 D-Dimer (0-234) ng/mlDDU Sodium (137-145) mmol/L Carbon Dioxide (22-30) mmol/L BUN (7-17) mg/dL Creatinine (0.7-1.2) mg/dL Glucose (65-100) mg/dL POC Glucose 225 H 287 H 169 H (70-105) Calcium (8.4-10.2) mg/dL Ferritin (13.0-400.0) ng/mL Lactate Dehydrogenase (91-180) units/L C-Reactive Protein (0.00-1.30) mg/dL 08/27/19 08/27/19 08/27/19 Range/Units 03:52 03:52 03:52 D-Dimer 887.47 H (0-234) ng/mlDDU Sodium 135 L (137-145) mmol/L Carbon Dioxide 19 L (22-30) mmol/L BUN 57 H (7-17) mg/dL Creatinine 3.5 H (0.7-1.2) mg/dL Glucose 119 H (65-100) mg/dL POC Glucose (70-105) Calcium 8.3 L (8.4-10.2) mg/dL Ferritin 476.5 H (13.0-400.0) ng/mL Lactate Dehydrogenase 424 H (91-180) units/L C-Reactive Protein 9.70 H (0.00-1.30) mg/dL 08/27/19 Range/Units 05:30 D-Dimer (0-234) ng/mlDDU Sodium (137-145) mmol/L Carbon Dioxide (22-30) mmol/L BUN (7-17) mg/dL Creatinine (0.7-1.2) mg/dL Glucose (65-100) mg/dL POC Glucose 134 H (70-105) Calcium (8.4-10.2) mg/dL Ferritin (13.0-400.0) ng/mL Lactate Dehydrogenase (91-180) units/L C-Reactive Protein (0.00-1.30) mg/dL Diabetes panel 08/27/19 Range/Units 03:52 Sodium 135 L (137-145) mmol/L Potassium 4.4 (3.6-5.0) mmol/L Chloride 105.4 (98-107) mmol/L Carbon Dioxide 19 L (22-30) mmol/L BUN 57 H (7-17) mg/dL Creatinine 3.5 H (0.7-1.2) mg/dL Glucose 119 H (65-100) mg/dL Calcium 8.3 L (8.4-10.2) mg/dL Calcium panel 08/27/19 Range/Units 03:52 Calcium 8.3 L (8.4-10.2) mg/dL Pituitary panel 08/27/19 Range/Units 03:52 Sodium 135 L (137-145) mmol/L Potassium 4.4 (3.6-5.0) mmol/L Chloride 105.4 (98-107) mmol/L Carbon Dioxide 19 L (22-30) mmol/L BUN 57 H (7-17) mg/dL Creatinine 3.5 H (0.7-1.2) mg/dL Glucose 119 H (65-100) mg/dL Calcium 8.3 L (8.4-10.2) mg/dL Adrenal panel 08/27/19 Range/Units 03:52 Sodium 135 L (137-145) mmol/L Potassium 4.4 (3.6-5.0) mmol/L Chloride 105.4 (98-107) mmol/L Carbon Dioxide 19 L (22-30) mmol/L BUN 57 H (7-17) mg/dL Creatinine 3.5 H (0.7-1.2) mg/dL Glucose 119 H (65-100) mg/dL Calcium 8.3 L (8.4-10.2) mg/dL - Imaging Additional studies: Foot x-ray on 08/24/19 reveals no obvious osteomyelitis. Assessment and Plan - Patient Problems (1) Type 2 diabetes mellitus with foot ulcer Current Visit: Yes Status: Acute Plan to address problem: 1) Arterial dopplers of the RLE 2) MRI of the RLE 3) Strict DM control 4) Off loading 5) F/u in the Wound Clinic 6) The above studies can be safely postponed for 2 weeks as the pt is currently Covid +.
--- NOTE | 2019-08-27 13:36 | Progress Note ---
Assessment and Plan Cultures: 08/24/2019 blood culture: Negative COVID-19 PCR: Positive Urine culture: Klebsiella 08/26/2019 foot wound culture: In process A/P: 28-year-old female with obesity, diabetes mellitus: #COVID-19 disease: Procalcitonin elevation could be due to renal failure. #Acute hypoxic respiratory failure: Requiring nasal cannula oxygen #Right foot diabetic ulcer: Surgery following. Awaiting MRI and arterial Dopplers of the right lower extremity, which likely will be done as outpatient due to COVID-19 positivity. Xray did not reveal any osteomyelitis. #Acute renal failure: ?volume related #Nausea, vomiting diarrhea: could be from COVID-19. #?UTI: mild pyuria, culture positive for Klebsiella. Anyways has been on Ceftriaxone. Recs: Continue Ceftriaxone, Flagyl likely additional treatment and work up of R DFU as outpatient Follow up wound culture trend ferritin, LDH, d-dimer, CRP every 2-3 days for risk stratification and to assess disease progression along with procalcitonin If she remains afebrile with stable or improving oxygen requirements, may consider discharge with home oxygen if needed Maykel Pelletier MD, FACP [facility] C: [phone] O: [phone] F: [phone] Subjective Date of service: 08/27/19 Interval history: Low-grade fever. Oxygen requirements remain stable at 2 L by nasal cannula. Objective - Exam Narrative Exam: Physical Exam (reviewed in chart due to PPE conservation) Constitutional: limited due to PPE conservation strategy Head, Ears, Nose: limited due to PPE conservation strategy Eyes: limited due to PPE conservation strategy Neck: limited due to PPE conservation strategy Oral: limited due to PPE conservation strategy Cardiovascular: limited due to PPE conservation strategy Respiratory: limited due to PPE conservation strategy GI: limited due to PPE conservation strategy Musculoskeletal: limited due to PPE conservation strategy Skin: limited due to PPE conservation strategy Hem/Lymphatic: limited due to PPE conservation strategy Psych: limited due to PPE conservation strategy Neurological: limited due to PPE conservation strategy - Constitutional Vitals: Vital Signs Temp Pulse Resp BP Pulse Ox 99.1 F 89 18 151/86 98 08/27/19 09:46 08/27/19 09:46 08/27/19 11:00 08/27/19 09:46 08/27/19 09:46 Temperature -Last 24 Hours Temperature 99.1 F Temperature 98.6 F Temperature 100.8 F Temperature 98.4 F - Labs CBC & Chem 7: 08/24/19 12:20 08/27/19 03:52 Labs: Abnormal lab results 08/26/19 08/26/19 08/27/19 Range/Units 17:04 23:15 03:52 D-Dimer 887.47 H (0-234) ng/mlDDU Sodium (137-145) mmol/L Carbon Dioxide (22-30) mmol/L BUN (7-17) mg/dL Creatinine (0.7-1.2) mg/dL Glucose (65-100) mg/dL POC Glucose 287 H 169 H (70-105) Calcium (8.4-10.2) mg/dL Ferritin (13.0-400.0) ng/mL Lactate Dehydrogenase (91-180) units/L C-Reactive Protein (0.00-1.30) mg/dL 08/27/19 08/27/19 08/27/19 Range/Units 03:52 03:52 05:30 D-Dimer (0-234) ng/mlDDU Sodium 135 L (137-145) mmol/L Carbon Dioxide 19 L (22-30) mmol/L BUN 57 H (7-17) mg/dL Creatinine 3.5 H (0.7-1.2) mg/dL Glucose 119 H (65-100) mg/dL POC Glucose 134 H (70-105) Calcium 8.3 L (8.4-10.2) mg/dL Ferritin 476.5 H (13.0-400.0) ng/mL Lactate Dehydrogenase 424 H (91-180) units/L C-Reactive Protein 9.70 H (0.00-1.30) mg/dL 08/27/19 Range/Units 11:44 D-Dimer (0-234) ng/mlDDU Sodium (137-145) mmol/L Carbon Dioxide (22-30) mmol/L BUN (7-17) mg/dL Creatinine (0.7-1.2) mg/dL Glucose (65-100) mg/dL POC Glucose 254 H (70-105) Calcium (8.4-10.2) mg/dL Ferritin (13.0-400.0) ng/mL Lactate Dehydrogenase (91-180) units/L C-Reactive Protein (0.00-1.30) mg/dL
--- NOTE | 2019-08-27 14:38 | Progress Note ---
Assessment and Plan Assessment and plan: Patient is a 28 yo woman with a history of DM type 2 and obesity who presents to [facility] ED with nausea, multiple episodes of vomiting, loss of taste and multiple loose stools for 3 days prior to arrival. Patient transported to [facility] via private vehicle for further care and evaluation. Chest x-ray shows right lower lobe infiltrate. Patient found to have a pulse oximetry of 85% on room air consistent with acute hypoxemic respiratory failure complicated by pneumonia * pCXR findings: Mild central vascular congestion and streaky right basilar airspace disease. Acute hypoxic respiratory failure: try to wean down from 3 liters O2 COVID-19 disease RLL early pneumonia: Procalcitonin elevation could be due to renal failure vs Right foot ulcer Acute renal failure/CKD 4, suspected vasomotor nephropathy: Nephrology input noted Nausea, vomiting diarrhea: could be from COVID-19: treat with anti-emetics Type I Diabetes mellitus: Sliding scale insulin therapy, Accu-Chek, consistent carbohydrate diet, hypoglycemia protocol. Morbid obesity, bmi 42.6: debt counselor on weight reduction. Nonhealing right foot DM ulcer: cleansed with wound cleanser, packed with dermagran, covered with 4x4 gauze and wrap with kerlix. Education provided to patient on foot care. Patient verbalized understanding. DVT prophylaxis: add sq lovenox 08/25/19: COVID-19 positive, start protocol. ID following 08/26/19: Continue abx, try to wean off 3 liters of O2, I called Wound care phys lissyan, Dr. Reyez, ordered arterial dopplers and he will see tomorrow to decide about MRI. Urine growing Klebsiella pneumonia on IV rocephin, await sensitivities, d/w Dr. Pelletier, ID 08/27/19: still waiting on Urine culture sensitivities, her DM foot ulcer testing will most likely be outpatient due to COVID-19 pandemic. She is down to 2 liters o2 NC and she was able to hold her breath for 20 seconds without difficulties. Possibly discharge home on O2 but she is self pay which may be a problem History Interval history: Patient was seen and examined. Follow-up on current diagnosis of COVID pneumonia. Overnight uneventful as no events directly reported to me. Patient denies any chest pain, nausea/vomiting or severe headaches. Imaging, nursing note, chart, labs and old chart reviewed. Discussed with patient. Hospitalist Physical - Physical exam Narrative exam: Gen: ill appearing, mild distress, morbid obesity BMI 42.6, NAD, Awake, Alert, Orientated HEENT: NCAT, EOMI, PERRL, OP Clear Neck: supple, no adenopathy, no thyromegaly, no JVD CVS/Heart: RRR, normal S1S2, pulses present bilaterally Chest/Lungs: diminished with inspiratory crackles, Symmetrical chest expansion, good air entry bilaterally GI/Abdomen: soft, NTND, good bowel sounds, no guarding or rebound /Bladder: no suprapubic tenderness, no CVA or paraspinal tenderness Extermity/Skin: Patient presented with a right planter foot diabetic ulcer measuring 2.5x1.5x1.5cm with odor and yellow drainage and dark sukumar-wound callus around edges. MSK: FROM x 4 Neuro: CN 2-12 grossly intact, no new focal deficits Psych: calm - Constitutional Vitals: Temp Pulse Resp BP Pulse Ox 99.1 F 89 18 151/86 98 08/27/19 09:46 08/27/19 09:46 08/27/19 11:00 08/27/19 09:46 08/27/19 09:46 General appearance: Absent: mild distress, cachectic Results - Labs CBC & Chem 7: 08/24/19 12:20 08/27/19 03:52 Labs: Laboratory Last Values WBC 7.9 K/mm3 (4.5-11.0) 08/24/19 12:20 RBC 4.20 M/mm3 (3.65-5.03) 08/24/19 12:20 Hgb 9.8 gm/dl (10.1-14.3) L 08/24/19 12:20 Hct 29.8 % (30.3-42.9) L 08/24/19 12:20 MCV 71 fl (79-97) L 08/24/19 12:20 MCH 23 pg (28-32) L 08/24/19 12:20 MCHC 33 % (30-34) 08/24/19 12:20 RDW 16.0 % (13.2-15.2) H 08/24/19 12:20 Plt Count 388 K/mm3 (140-440) 08/24/19 12:20 Add Manual Diff Complete 08/24/19 12:20 Total Counted 100 08/24/19 12:20 Seg Neuts % (Manual) 78.0 % (40.0-70.0) H 08/24/19 12:20 Band Neutrophils % 5.0 % 08/24/19 12:20 Lymphocytes % (Manual) 11.0 % (13.4-35.0) L 08/24/19 12:20 Reactive Lymphs % (Man) 1.0 % 08/24/19 12:20 Monocytes % (Manual) 5.0 % (0.0-7.3) 08/24/19 12:20 Eosinophils % (Manual) 0 % (0.0-4.3) 08/24/19 12:20 Basophils % (Manual) 0 % (0.0-1.8) 08/24/19 12:20 Metamyelocytes % 0 % 08/24/19 12:20 Myelocytes % 0 % 08/24/19 12:20 Promyelocytes % 0 % 08/24/19 12: Blast Cells % 0 % 08/24/19 12: Nucleated RBC % Not Reportable 08/24/19 12:20 Seg Neutrophils # Man 6.2 K/mm3 (1.8-7.7) 08/24/19 12:20 Band Neutrophils # 0.4 K/mm3 08/24/19 12:20 Lymphocytes # (Manual) 0.9 K/mm3 (1.2-5.4) L 08/24/19 12:20 Abs React Lymphs (Man) 0.1 K/mm3 08/24/19 12:20 Monocytes # (Manual) 0.4 K/mm3 (0.0-0.8) 08/24/19 12:20 Eosinophils # (Manual) 0.0 K/mm3 (0.0-0.4) 08/24/19 12:20 Basophils # (Manual) 0.0 K/mm3 (0.0-0.1) 08/24/19 12:20 Metamyelocytes # 0.0 K/mm3 08/24/19 12:20 Myelocytes # 0.0 K/mm3 08/24/19 12:20 Promyelocytes # 0.0 K/mm3 08/24/19 12:20 Blast Cells # 0.0 K/mm3 08/24/19 12:20 WBC Morphology Not Reportable 04/20/20 12:20 Hypersegmented Neuts Not Reportable 08/24/19 12:20 Hyposegmented Neuts Not Reportable 08/24/19 12:20 Hypogranular Neuts Not Reportable 08/24/19 12:20 Smudge Cells Not Reportable 08/24/19 12:20 Toxic Granulation Not Reportable 08/24/19 12:20 Toxic Vacuolation Not Reportable 08/24/19 12:20 Dohle Bodies Not Reportable 08/24/19 12:20 Pelger-Huet Anomaly Not Reportable 08/24/19 12:20 [place] Rods Not Reportable 08/24/19 12:20 Platelet Estimate Consistent w auto 08/24/19 12:20 Clumped Platelets Rare 08/24/19 12:20 Plt Clumps, EDTA Not Reportable 08/24/19 12:20 Large Platelets Not Reportable 08/24/19 12:20 Giant Platelets Not Reportable 08/24/19 12:20 Platelet Satelliting Not Reportable 08/24/19 12:20 Plt Morphology Comment Not Reportable 08/24/19 12:20 RBC Morphology Not Reportable 08/24/19 12:20 Dimorphic RBCs Not Reportable 08/24/19 12:20 Polychromasia Not Reportable 08/24/19 12:20 Hypochromasia 1+ 08/24/19 12:20 Poikilocytosis Not Reportable 08/24/19 12:20 Anisocytosis Not Reportable 08/24/19 12:20 Microcytosis 1+ 08/24/19 12:20 Macrocytosis Not Reportable 08/24/19 12:20 Spherocytes Not Reportable 08/24/19 12:20 Pappenheimer Bodies Not Reportable 08/24/19 12:20 Sickle Cells Not Reportable 08/24/19 12:20 Target Cells Not Reportable 08/24/19 12:20 Tear Drop Cells Not Reportable 08/24/19 12:20 Ovalocytes Not Reportable 08/24/19 12:20 Helmet Cells Not Reportable 08/24/19 12:20 [place] Bodies Not Reportable 08/24/19 12:20 [place] Rings Not Reportable 08/24/19 12:20 [place] Cells Not Reportable 08/24/19 12:20 Bite Cells Not Reportable 08/24/19 12:20 Crenated Cell Not Reportable 08/24/19 12:20 Elliptocytes Not Reportable 08/24/19 12:20 Acanthocytes (Spur) Not Reportable 08/24/19 12:20 Rouleaux Not Reportable 08/24/19 12:20 Hemoglobin C Crystals Not Reportable 08/24/19 12:20 Schistocytes Not Reportable 08/24/19 12:20 Malaria parasites Not Reportable 08/24/19 12:20 ESR Cancelled 08/24/19 12:20 Hiram Bodies Not Reportable 08/24/19 12:20 Hem Pathologist Commnt No 08/24/19 12:20 PT 13.2 Sec. (12.2-14.9) 08/24/19 12:20 INR 0.99 (0.87-1.13) 08/24/19 12:20 D-Dimer 887.47 ng/mlDDU (0-234) H 08/27/19 03:52 ABG pH 7.314 pH Units (7.350-7.450) L 08/24/19 14:15 ABG pCO2 34.3 mm Hg 08/24/19 14:15 ABG pO2 52.9 mm Hg (80.0-90.0) L 08/24/19 14:15 ABG HCO3 17.1 mmol/L (20.0-26.0) L 08/24/19 14:15 ABG O2 Saturation 84.0 % (95.0-99.0) L 08/24/19 14:15 ABG O2 Content 10.3 (0.0-44) 08/24/19 14:15 ABG Base Excess -8.3 mmol/L (-2.0-3.0) L 08/24/19 14:15 ABG Hemoglobin 8.9 gm/dl (12.0-16.0) L 08/24/19 14:15 ABG Carboxyhemoglobin 1.5 % (0.0-5.0) 08/24/19 14:15 ABG Methemoglobin 0.6 % (0.0-1.5) 08/24/19 14:15 VBG pH 7.291 (7.320-7.420) L 08/24/19 12:20 Oxyhemoglobin 82.2 % (95.0-99.0) L 08/24/19 14:15 FiO2 21 % 08/24/19 14:15 Sodium 135 mmol/L (137-145) L 08/27/19 03:52 Potassium 4.4 mmol/L (3.6-5.0) 08/27/19 03:52 Chloride 105.4 mmol/L (98-107) 08/27/19 03:52 Carbon Dioxide 19 mmol/L (22-30) L 08/27/19 03:52 Anion Gap 15 mmol/L 08/27/19 03:52 BUN 57 mg/dL (7-17) H 08/27/19 03:52 Creatinine 3.5 mg/dL (0.7-1.2) H 08/27/19 03:52 Estimated GFR 19 ml/min 08/27/19 03:52 BUN/Creatinine Ratio 16 % 08/27/19 03:52 Glucose 119 mg/dL (65-100) H 08/27/19 03:52 POC Glucose 254 (70-105) H 08/27/19 11:44 Lactic Acid 0.90 mmol/L (0.7-2.0) 08/24/19 14:50 Calcium 8.3 mg/dL (8.4-10.2) L 08/27/19 03:52 Phosphorus 3.80 mg/dL (2.5-4.5) 08/25/19 10:07 Magnesium 2.10 mg/dL (1.7-2.3) 08/25/19 10:07 Ferritin 476.5 ng/mL (13.0-400.0) H 08/27/19 03:52 Total Bilirubin 0.20 mg/dL (0.1-1.2) 08/24/19 12:20 AST 32 units/L (5-40) 08/24/19 12:20 ALT 21 units/L (7-56) 08/24/19 12:20 Alkaline Phosphatase 86 units/L (35-129) 08/24/19 12:20 Lactate Dehydrogenase 424 units/L (91-180) H 08/27/19 03:52 C-Reactive Protein 9.70 mg/dL (0.00-1.30) H 08/27/19 03:52 Total Protein 8.3 g/dL (6.3-8.2) H 08/24/19 12:20 Albumin 3.1 g/dL (3.9-5) L 08/24/19 12:20 Albumin/Globulin Ratio 0.6 % 08/24/19 12:20 Lipase 92 units/L (13-60) H 08/24/19 12:20 Procalcitonin 0.11 ng/mL (<0.15) 08/27/19 03:52 HCG, Quant 0.569 mIU/mL (0-4) 08/24/19 12:20 PTH Intact 224.9 pg/mL (15-65) H 08/25/19 10:07 Urine Color Yellow (Yellow) 08/24/19 21:00 Urine Turbidity Slightly-cloudy (Clear) 08/24/19 21:00 Urine pH 5.0 (5.0-7.0) 08/24/19 21:00 Ur Specific [place] 1.009 (1.003-1.030) 08/24/19 21:00 Urine Protein 100 mg/dl mg/dL (Negative) 08/24/19 21:00 Urine Glucose (UA) Neg mg/dL (Negative) 08/24/19 21:00 Urine Ketones Neg mg/dL (Negative) 08/24/19 21:00 Urine Blood Mod (Negative) 08/24/19 21:00 Urine Nitrite Neg (Negative) 08/24/19 21:00 Urine Bilirubin Neg (Negative) 08/24/19 21:00 Urine Urobilinogen < 2.0 mg/dL (<2.0) 08/24/19 21:00 Ur Leukocyte Esterase Mod (Negative) 08/24/19 21:00 Urine WBC (Auto) 14.0 /HPF (0.0-6.0) H 08/24/19 21:00 Urine RBC (Auto) 5.0 /HPF (0.0-6.0) 08/24/19 21:00 U Epithel Cells (Auto) < 1.0 /HPF (0-13.0) 08/24/19 21:00 Urine Bacteria (Auto) 2+ /HPF (Negative) 08/24/19 21:00 Urine Mucus Few /HPF 08/24/19 21:00 Urine Creatinine 63.5 mg/dL (0.1-20.0) H 08/24/19 21:00 Urine Sodium 31 mmol/L 08/24/19 21:00 Coronavirus (PCR) Positive (Negative) A 08/25/19 11:21 Hepatitis A IgM Ab Non-reactive (NonReactive) 08/25/19 11:24 Hep Bs Antigen Non-reactive (Negative) 08/25/19 11:24 Hep B Core IgM Ab Non-reactive (NonReactive) 08/25/19 11:24 Hepatitis C Antibody Non-reactive (NonReactive) 08/25/19 11:24 Microbiology: Microbiology 08/24/19 12:20 Peripheral/Venous Blood Culture - Preliminary NO GROWTH AFTER 72 HOURS 08/24/19 12:20 Peripheral/Venous Blood Culture - Preliminary NO GROWTH AFTER 72 HOURS 08/24/19 21:00 Urine,Clean Catch Urine Culture - Preliminary Klebsiella Pneumoniae Irwin/IV: Voiding Method Toilet IV Catheter Type [Left INT / Saline Lock Antecubital] IV Catheter Type [Right Peripheral IV Antecubital] Active Medications - Current Medications Current Medications: Generic Name Dose Route Start Last Admin Trade Name Freq PRN Reason Stop Dose Admin Acetaminophen 650 mg 08/24/19 14:41 08/26/19 22:22 Tylenol PO 650 mg Q4H PRN Administration Pain MILD(1-3)/Fever >100.5/CLAIRE Amlodipine Besylate 10 mg 08/25/19 10:00 08/27/19 09:41 Amlodipine PO 10 mg QDAY ARLETH Administration Dextrose 0 ml 08/24/19 21:24 D50w (25gm) Syringe IV Q30MIN PRN Hypoglycemia Protocol Hydralazine HCl 5 mg 08/24/19 22:38 08/26/19 22:23 Apresoline IV 5 mg Q6H PRN Administration elevated bp Ceftriaxone Sodium 2 gm in 100 mls @ 200 mls/hr 08/24/19 15:00 08/27/19 09:40 Rocephin/Ns 2 Gm/100 Ml IV 200 mls/hr Q24HR ARLETH Administration Protocol Metronidazole 500 mg in 100 mls @ 100 mls/hr 08/26/19 15:00 08/27/19 13:30 Flagyl 500 Mg/100 Ml IV 100 mls/hr Q8HR ARLETH Administration Protocol Insulin Human Lispro 0 unit 08/25/19 00:00 08/27/19 13:31 Humalog SUB-Q 4 unit Q6HR ARLETH Administration Protocol Metoprolol Tartrate 50 mg 08/25/19 10:00 08/27/19 09:41 Metoprolol PO 50 mg BID ARLETH Administration Ondansetron HCl 4 mg 08/24/19 14:41 Zofran IV Q8H PRN Nausea And Vomiting Sodium Bicarbonate 1,300 mg 08/25/19 15:04 08/27/19 13:30 Sodium Bicarbonate PO 1,300 mg TID ARLETH Administration Sodium Chloride 10 ml 08/24/19 22:00 08/27/19 09:41 Sodium Chloride Flush Syringe 10 Ml IV 10 ml BID ARLETH Administration Sodium Chloride 10 ml 08/24/19 14:41 Sodium Chloride Flush Syringe 10 Ml IV PRN PRN LINE FLUSH
[2019-08-27] MEDS: ACETAMINOPHEN 325 MG TAB PO PRN (15:51)
[2019-08-28] MEDS: INSULIN LISPRO 100 UNIT/ML SUB-Q SCH ×3 (01:27→13:17)
[2019-08-28] MEDS: metroNIDAZOLE/NS 500 MG/100 ML 500 MG/100 ML BAG IV SCH ×2 (05:48→13:18)
[2019-08-28 05:56] LABS: Calcium 8.4 mg/dL (8.4-10.2)
--- NOTE | 2019-08-28 08:46 | Progress Note ---
<RENARDMIRIAM - Last Filed: 08/28/19 08:46> Subjective Date of service: 08/28/19 Objective - Vital Signs Vital signs: Vital Signs - 12hr 08/27/19 08/27/19 08/27/19 22:00 22:02 23:16 Temperature 97.7 F Pulse Rate 91 H 91 H Respiratory 18 Rate Blood Pressure 162/89 162/89 O2 Sat by Pulse 98 92 Oximetry 08/28/19 05:36 Temperature 98.1 F Pulse Rate 86 Respiratory 18 Rate Blood Pressure 153/96 O2 Sat by Pulse 96 Oximetry - Lab 08/24/19 12:20 08/28/19 05:22 Most recent lab results ABG pH 7.314 pH Units (7.350-7.450) L 08/24/19 14:15 ABG pCO2 34.3 mm Hg 08/24/19 14:15 ABG pO2 52.9 mm Hg (80.0-90.0) L 08/24/19 14:15 ABG HCO3 17.1 mmol/L (20.0-26.0) L 08/24/19 14:15 ABG O2 Saturation 84.0 % (95.0-99.0) L 08/24/19 14:15 Calcium 8.4 mg/dL (8.4-10.2) 08/28/19 05:22 Phosphorus 3.80 mg/dL (2.5-4.5) 08/25/19 10:07 Magnesium 2.10 mg/dL (1.7-2.3) 08/25/19 10:07 Urine Creatinine 63.5 mg/dL (0.1-20.0) H 08/24/19 21:00 Urine Sodium 31 mmol/L 08/24/19 21:00 Medications & Allergies - Medications Allergies/Adverse Reactions: Allergies No Known Allergies Allergy (Unverified 08/24/19 12:03) Home Medications: Home Medications Medication Instructions Recorded Confirmed Last Taken Type HumaLOG 10 units SQ TID 08/24/19 08/24/19 08/22/19 19:00 History Active Medications: Generic Name Dose Route Start Last Admin Trade Name Freq PRN Reason Stop Dose Admin Acetaminophen 650 mg 08/24/19 14:41 08/27/19 15:51 Tylenol PO 650 mg Q4H PRN Administration Pain MILD(1-3)/Fever >100.5/CLAIRE Amlodipine Besylate 10 mg 08/25/19 10:00 08/27/19 09:41 Amlodipine PO 10 mg QDAY ARLETH Administration Dextrose 0 ml 08/24/19 21:24 D50w (25gm) Syringe IV Q30MIN PRN Hypoglycemia Protocol Hydralazine HCl 5 mg 08/24/19 22:38 08/26/19 22:23 Apresoline IV 5 mg Q6H PRN Administration elevated bp Ceftriaxone Sodium 2 gm in 100 mls @ 200 mls/hr 08/24/19 15:00 08/27/19 09:40 Rocephin/Ns 2 Gm/100 Ml IV 200 mls/hr Q24HR ARLETH Administration Protocol Metronidazole 500 mg in 100 mls @ 100 mls/hr 08/26/19 15:00 08/28/19 05:48 Flagyl 500 Mg/100 Ml IV 100 mls/hr Q8HR ARLETH Administration Protocol Insulin Human Lispro 0 unit 08/25/19 00:00 08/28/19 05:48 Humalog SUB-Q 2 unit Q6HR ARLETH Administration Protocol Metoprolol Tartrate 50 mg 08/25/19 10:00 08/27/19 23:16 Metoprolol PO 50 mg BID ARLETH Administration Ondansetron HCl 4 mg 08/24/19 14:41 Zofran IV Q8H PRN Nausea And Vomiting Sodium Bicarbonate 1,300 mg 08/25/19 15:04 08/27/19 22:20 Sodium Bicarbonate PO 1,300 mg TID ARLETH Administration Sodium Chloride 10 ml 08/24/19 22:00 08/27/19 23:17 Sodium Chloride Flush Syringe 10 Ml IV 10 ml BID ARLETH Administration Sodium Chloride 10 ml 08/24/19 14:41 Sodium Chloride Flush Syringe 10 Ml IV PRN PRN LINE FLUSH <MAKAYLA ESPINOSA - Last Filed: 08/28/19 14:33> Assessment and Plan 1. 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 Patient with known h/o CKD. No prior labs are available. Renal US is still pending. Creatinine level is improving. Monitor renal function. Renal prognosis is guarded. Avoid nephrotoxic agents. Meds dosage based on GFR. 2. FEN: Metabolic acidosis, on Sodium bicarbonate. Monitor lytes and volume status. 3. Acute hypoxemic respiratory failure: Likely 2/2 PNA. Supplemental O2. 4. Right lower lobe pneumonia: Pneumonia protocol. 5. COVID-19 virus infection. 6. Diabetes mellitus type 1. 7. Uncontrolled Hypertension: Continue Amlodipine. Increase Metoprolol to 75 mg BID. Monitor BP. 8. Microcytic Anemia, POA. Will follow labs and see patient if needed. - Subjective Patient was seen and examined from the doorside, to prevent spread of COVID-19. PPE is N/A Doing ok. - General Appearance General appearance: well-developed, well-nourished, appears stated age, obese, no distress HEENT: ATNC, hearing intact Neurologic: alert and oriented x3, conversing, able to move extremities Ext: no edema Psychiatric: cooperative Objective - Vital Signs Vital signs: Vital Signs - 12hr 08/28/19 08/28/19 08/28/19 05:36 10:00 10:16 Temperature 98.1 F Pulse Rate 86 86 Respiratory 18 Rate Blood Pressure 153/96 153/96 O2 Sat by Pulse 96 99 Oximetry 08/28/19 08/28/19 08/28/19 10:30 11:24 11:37 Temperature 98.3 F Pulse Rate 89 Respiratory 20 Rate Blood Pressure 153/84 O2 Sat by Pulse 93 82 L 92 Oximetry - Lab 08/24/19 12:20 08/28/19 05:22 Most recent lab results ABG pH 7.314 pH Units (7.350-7.450) L 08/24/19 14:15 ABG pCO2 34.3 mm Hg 08/24/19 14:15 ABG pO2 52.9 mm Hg (80.0-90.0) L 08/24/19 14:15 ABG HCO3 17.1 mmol/L (20.0-26.0) L 08/24/19 14:15 ABG O2 Saturation 84.0 % (95.0-99.0) L 08/24/19 14:15 Calcium 8.4 mg/dL (8.4-10.2) 08/28/19 05:22 Phosphorus 3.80 mg/dL (2.5-4.5) 08/25/19 10:07 Magnesium 2.10 mg/dL (1.7-2.3) 08/25/19 10:07 Urine Creatinine 63.5 mg/dL (0.1-20.0) H 08/24/19 21:00 Urine Sodium 31 mmol/L 08/24/19 21:00 Medications & Allergies - Medications Active Medications: Generic Name Dose Route Start Last Admin Trade Name Freq PRN Reason Stop Dose Admin Acetaminophen 650 mg 08/24/19 14:41 08/27/19 15:51 Tylenol PO 650 mg Q4H PRN Administration Pain MILD(1-3)/Fever >100.5/CLAIRE Amlodipine Besylate 10 mg 08/25/19 10:00 08/28/19 10:16 Amlodipine PO 10 mg QDAY ARLETH Administration Dextrose 0 ml 08/24/19 21:24 D50w (25gm) Syringe IV Q30MIN PRN Hypoglycemia Protocol Hydralazine HCl 5 mg 08/24/19 22:38 08/26/19 22:23 Apresoline IV 5 mg Q6H PRN Administration elevated bp Ceftriaxone Sodium 2 gm in 100 mls @ 200 mls/hr 08/24/19 15:00 08/28/19 10:14 Rocephin/Ns 2 Gm/100 Ml IV 200 mls/hr Q24HR ARLETH Administration Protocol Metronidazole 500 mg in 100 mls @ 100 mls/hr 08/26/19 15:00 08/28/19 13:18 Flagyl 500 Mg/100 Ml IV 100 mls/hr Q8HR ARLETH Administration Protocol Insulin Human Lispro 0 unit 08/25/19 00:00 08/28/19 13:17 Humalog SUB-Q 4 unit Q6HR ARLETH Administration Protocol Metoprolol Tartrate 50 mg 08/25/19 10:00 08/28/19 10:16 Metoprolol PO 50 mg BID ARLETH Administration Ondansetron HCl 4 mg 08/24/19 14:41 Zofran IV Q8H PRN Nausea And Vomiting Sodium Bicarbonate 1,300 mg 08/25/19 15:04 08/28/19 13:17 Sodium Bicarbonate PO 1,300 mg TID ARLETH Administration Sodium Chloride 10 ml 08/24/19 22:00 08/28/19 10:18 Sodium Chloride Flush Syringe 10 Ml IV 10 ml BID ARLETH Administration Sodium Chloride 10 ml 08/24/19 14:41 Sodium Chloride Flush Syringe 10 Ml IV PRN PRN LINE FLUSH
[2019-08-28] MEDS: cefTRIAXone/NS 2 GM/100 ML 2 GM/100 ML BAG IV SCH (10:14)
[2019-08-28] MEDS: SODIUM BICARBONATE 650 MG TAB PO SCH ×2 (10:15→13:17)
[2019-08-28] MEDS: amLODIPine 10 MG TAB PO SCH (10:16)
[2019-08-28] MEDS: METOPROLOL TARTRATE 50 MG TAB PO SCH (10:16)
[2019-08-28 11:40] VITALS: BP 153/84
[2019-08-28] MEDS ORDERED: METOPROLOL TARTRATE 50 MG TAB PO SCH (14:32)
--- NOTE | 2019-08-28 15:33 | Discharge Summary ---
Providers - Providers Date of Admission: 08/24/19 14:41 Date of discharge: 08/28/19 Attending physician: JAMES GALO 08/24/19 14:39 Consult to Physician [CONS] Urgent Comment: Consulting Provider: BON FABIAN Physician Instructions: Reason For Exam: covid suspect 08/24/19 20:23 Consult to Physician [CONS] Routine Comment: Consulting Provider: MAKAYLA ESPINOSA Physician Instructions: Reason For Exam: dg 08/25/19 13:54 Consult to Wound/ET Nurse [CONS] Routine Reason For Exam: wound eval 08/26/19 14:22 Consult to Physician [CONS] Routine Comment: Consulting Provider: MARINA REYEZ Physician Instructions: I spoke with, just add to his list please Reason For Exam: non healing DM right foot ulcer Primary care physician: NANOSCIENCE TECHNICIAN Hospitalization Condition: Stable Hospital course: Patient is a 28 yo woman with a history of DM type 2, chronic right foot ulcer x 1 year and obesity who presents to [facility] ED with nausea, multiple episodes of vomiting, loss of taste and multiple loose stools for 3 days prior to arrival. Patient transported to [facility] via private vehicle for further care and evaluation. Chest x-ray shows right lower lobe infiltrate. Patient found to have a pulse oximetry of 85% on room air consistent with acute hypoxemic respiratory failure complicated by pneumonia Hospital coarse: 08/25/19: COVID-19 positive, start protocol. ID following 08/26/19: Continue abx, try to wean off 3 liters of O2, I called Wound care physician, Dr. Reyez, ordered arterial dopplers and he will see tomorrow to decide about MRI. Urine growing Klebsiella pneumonia on IV rocephin, await sensitivities, d/w Dr. Fabian, ID 08/27/19: still waiting on Urine culture sensitivities, her DM foot ulcer testing will most likely be outpatient due to COVID-19 pandemic. She is down to 2 liters o2 NC and she was able to hold her breath for 20 seconds without difficulties. Possibly discharge home on O2 but she is self pay which may be a problem . Oxygen qualification during exercise: 1. Room air resting pulse oximetry: 87% 2. Room air pulse oximetry during exercise: 84% 3. Pulse oximetry on 2LPM 02% via nasal cannula during exercise: 95% 08/28/19: Home with O2 * pCXR findings: Mild central vascular congestion and streaky right basilar airspace disease. Discharge Diagnoses: Acute hypoxic respiratory failure: try to wean down from 3 liters O2 COVID-19 disease RLL pneumonia: Procalcitonin elevation could be due to renal failure vs Right foot ulcer Acute renal failure/CKD 4, suspected vasomotor nephropathy: Nephrology input noted Nausea, vomiting diarrhea: could be from COVID-19: treat with anti-emetics Type I Diabetes mellitus: Sliding scale insulin therapy, Accu-Chek, consistent carbohydrate diet, hypoglycemia protocol. Morbid obesity, bmi 42.6: counselor dormitory on weight reduction. Nonhealing right foot DM ulcer: cleansed with wound cleanser, packed with dermagran, covered with 4x4 gauze and wrap with kerlix. Education provided to patient on foot care. Patient verbalized understanding. DVT prophylaxis: add sq lovenox Disposition: DC-01 TO HOME OR SELFCARE Time spent for discharge: 36 minutes Core Measure Documentation - Palliative Care Palliative Care/ Comfort Measures: Not Applicable - Core Measures Any of the following diagnoses?: none - VTE Discharge Requirements Deep Vein Thrombosis/Pulmonary Embolism Present on Admission: No Has pt received <5 days of overlap therapy or INR<2.0: No Anticoagulant overlap therapy prescribed at discharge: No Contraindication No Overlap Therapy order at DC: Not Indicated Exam - Physical Exam Narrative exam: Gen: ill appearing, mild distress, morbid obesity BMI 42.6, NAD, Awake, Alert, Orientated HEENT: NCAT, EOMI, PERRL, OP Clear Neck: supple, no adenopathy, no thyromegaly, no JVD CVS/Heart: RRR, normal S1S2, pulses present bilaterally Chest/Lungs: diminished with inspiratory crackles, Symmetrical chest expansion, good air entry bilaterally GI/Abdomen: soft, NTND, good bowel sounds, no guarding or rebound /Bladder: no suprapubic tenderness, no CVA or paraspinal tenderness Extermity/Skin: Patient presented with a right planter foot diabetic ulcer measuring 2.5x1.5x1.5cm with odor and yellow drainage and dark sukumar-wound callus around edges. MSK: FROM x 4 Neuro: CN 2-12 grossly intact, no new focal deficits Psych: calm - Constitutional Vitals: Temp Pulse Resp BP Pulse Ox 98.3 F 89 20 153/84 92 08/28/19 11:24 08/28/19 11:24 08/28/19 11:24 08/28/19 11:24 08/28/19 11:37 Plan Activity: other (no stress activity unless cleared by PCP) Weight Bearing Status: Partial Weight Bearing (right foot) Diet: diabetic, renal Additional Instructions: 14 day Quarantine. Must wear Mask around other people and outside. Practice Social Distancing Follow up with: PRIMARY MD ADAMS [Primary Care Provider] - 7 Days MAKAYLA ESPINOSA MD [Staff Physician] - 7 Days BON FABIAN MD [Staff Physician] - 14 Days MARINA REYEZ MD [Staff Physician] - 10 Days Prescriptions: amLODIPine 10 mg PO QDAY #30 tablet Ciprofloxacin HCl [Ciprofloxacin TAB] 500 mg PO QDAY #7 tablet Metoprolol [Lopressor TAB] 50 mg PO BID #60 tablet Sodium Bicarbonate 2 tab PO TID #190 tablet
--- NOTE | 2019-08-28 15:45 | Progress Note ---
Assessment and Plan Cultures: 08/24/2019 blood culture: Negative COVID-19 PCR: Positive Urine culture: Klebsiella 08/26/2019 foot wound culture: GNR A/P: 28-year-old female with obesity, diabetes mellitus: #COVID-19 disease: Procalcitonin elevation could be due to renal failure. #Acute hypoxic respiratory failure: Requiring nasal cannula oxygen #Right foot diabetic ulcer: Surgery following. Awaiting MRI and arterial Dopplers of the right lower extremity, which likely will be done as outpatient due to COVID-19 positivity. Xray did not reveal any osteomyelitis. #Acute renal failure: ?volume related #Nausea, vomiting diarrhea: could be from COVID-19. #?UTI: mild pyuria, culture positive for Klebsiella. Anyways has been on Ceftriaxone. Recs: PO Ciprofloxacin 500 mg daily x 14 days OK for discharge with home oxygen if needed. Stable from COVID standpoint Follow up with Dr Reyez for foot wound, if outpatient MRI is positive for osteomyelitis, can follow up with us in ID clinic Self quarantine for at least 14 days d/w Dr. Claros. Maykel Pelletier MD, FACP [facility] C: [phone] O: [phone] F: [phone] Subjective Date of service: 08/28/19 Interval history: No fever. Oxygen requirements improving. Creatinine slowly trending down. Noted plans for possible discharge. Objective - Exam Narrative Exam: Physical Exam (reviewed in chart due to PPE conservation) Constitutional: limited due to PPE conservation strategy Head, Ears, Nose: limited due to PPE conservation strategy Eyes: limited due to PPE conservation strategy Neck: limited due to PPE conservation strategy Oral: limited due to PPE conservation strategy Cardiovascular: limited due to PPE conservation strategy Respiratory: limited due to PPE conservation strategy GI: limited due to PPE conservation strategy Musculoskeletal: limited due to PPE conservation strategy Skin: limited due to PPE conservation strategy Hem/Lymphatic: limited due to PPE conservation strategy Psych: limited due to PPE conservation strategy Neurological: limited due to PPE conservation strategy - Constitutional Vitals: Vital Signs Temp Pulse Resp BP Pulse Ox 98.3 F 89 20 153/84 92 08/28/19 11:24 08/28/19 11:24 08/28/19 11:24 08/28/19 11:24 08/28/19 11:37 Temperature -Last 24 Hours Temperature 98.3 F Temperature 98.1 F Temperature 97.7 F Temperature 98.9 F - Labs CBC & Chem 7: 08/24/19 12:20 08/28/19 05:22 Labs: Abnormal lab results 08/27/19 08/28/19 08/28/19 Range/Units 16:59 00:49 05:22 Carbon Dioxide 21 L (22-30) mmol/L BUN 47 H (7-17) mg/dL Creatinine 3.1 H (0.7-1.2) mg/dL Glucose 147 H (65-100) mg/dL POC Glucose 195 H 194 H (70-105) 08/28/19 08/28/19 Range/Units 05:48 11:36 Carbon Dioxide (22-30) mmol/L BUN (7-17) mg/dL Creatinine (0.7-1.2) mg/dL Glucose (65-100) mg/dL POC Glucose 160 H 277 H (70-105)
== END 2019-08-28 17:45 | disposition home or self-care (01) | DRG 177 ==
LOC: ED 11:44 → 3A 14:41
PROVIDERS: ADMIT Internal Medicine; ATTEND Internal Medicine
PROC: 4A033R1 Measurement of Arterial Saturation, Peripheral, Percutaneous Approach (ICD-10-PCS; principal; 2019-08-24)
DX: U07.1 COVID-19 (principal); J12.89 Other viral pneumonia; J96.01 Acute respiratory failure with hypoxia; N17.0 Acute kidney failure with tubular necrosis; N18.4 Chronic kidney disease, stage 4 (severe); Z68.41 Body mass index [BMI] 40.0-44.9, adult; N39.0 Urinary tract infection, site not specified; E66.01 Morbid (severe) obesity due to excess calories; Z71.3 Dietary counseling and surveillance; Z87.891 Personal history of nicotine dependence; I12.9 Hypertensive chronic kidney disease with stage 1 through stage 4 chronic kidney disease, or unspecified chronic kidney disease; E10.22 Type 1 diabetes mellitus with diabetic chronic kidney disease; E10.621 Type 1 diabetes mellitus with foot ulcer; D64.9 Anemia, unspecified
CPT/HCPCS: 36415; 71045; 74019; 80048; 80053; 80074; 81001; 82140; 82570; 82728; 82803; 82805; 82947; 82962; 83615; 83690; 83735; 83970; 84100; 84145; 84300; 84702; 85007; 85025; 85379; 85610; 86140; 87040; 87076; 87086; 87116; 87186; 87635; 93005; 94760; G0378; J0360; J0696; J1815; J2405; J7030; J7040

== ENCOUNTER 2020-05-07 13:20 | Inpatient (IN) | payer OTHER ==
--- NOTE | 2020-05-07 14:27 | Event Note ---
ED Screening Note Date of service: 05/07/20 Time: 14:27 ED Screening Note: Complains of worsening of right chronic foot wound over the past few days Patient is diabetic Blood pressure significantly elevated This initial assessment/diagnostic orders/clinical plan/treatment(s) is/are subject to change based on patients health status, clinical progression and re- assessment by fellow clinical providers in the ED. Further treatment and workup at subsequent clinical providers discretion. Patient/guardian urged not to elope from the ED as their condition may be serious if not clinically assessed and managed. Initial orders include: Labs X-ray
--- NOTE | 2020-05-07 15:22 | XRay Report ---
RIGHT FOOT 3 VIEWS INDICATION / CLINICAL INFORMATION: worsening of chronic diabetic wound. COMPARISON: None available. FINDINGS: Deep soft tissue swelling of the forefoot, with what appears to be active bone destruction of the dis teresa and of the third metacarpal. Appearance is indicative of active osteomyelitis. Signer Name: Christ Wiseman MD Signed: 05/07/2020 3:18 PM Workstation Name: [id number]
[2020-05-07 15:28] LABS: Basophils # (Auto) 0.2 K/mm3 (0.0-0.1); Basophils % (Auto) 1.1 % (0.0-1.8); Eosinophils # (Auto) 0.4 K/mm3 (0.0-0.4); Eosinophils % (Auto) 3.1 % (0.0-4.3); Hematocrit 29.3 % (30.3-42.9); Hemoglobin 9.3 gm/dl (10.1-14.3); Lymphocytes # (Auto) 2.1 K/mm3 (1.2-5.4); Lymphocytes % (Auto) 15.8 % (13.4-35.0); Mean Corpuscular HGB Conc 32 % (30-34); Mean Corpuscular Volume 72 fl (79-97); Monocytes # (Auto) 1.4 K/mm3 (0.0-0.8); Monocytes % (Auto) 10.8 % (0.0-7.3); Platelet Count 381 K/mm3 (140-440); Red Blood Count 4.05 M/mm3 (3.65-5.03); Red Cell Distribution Width 16.8 % (13.2-15.2)
[2020-05-07 15:49] LABS: Alanine Aminotransferase 20 units/L (7-56); Albumin 3.6 g/dL (3.9-5); BUN/Creatinine Ratio 14; Blood Urea Nitrogen 49 mg/dL (7-17); Hemolysis Index 0
[2020-05-07] MEDS ORDERED: hydrALAZINE 20 MG/1 ML INJ IV ONE (16:34)
[2020-05-07] MEDS ORDERED: cefTRIAXone/NS 2 GM/100 ML 2 GM/100 ML BAG IV ONE (16:34)
[2020-05-07] MEDS ORDERED: VANCOMYCIN/NS 1 GM/250 ML 1 GM/250 ML BAG IV ONE (16:34)
[2020-05-07] MEDS ORDERED: DEXTROSE 50% IN WATER (25GM) 50 ML SYRINGE IV ONE (16:36)
--- NOTE | 2020-05-07 16:45 | Emergency Department Report ---
HPI - General Chief Complaint: Extremity Problem,Nontraumatic Time Seen by Provider: 05/07/20 14:26 - HPI HPI: This is a 29-year-old female who presents to the emergency department with a complaint of a 3-day history of progressively worsening wound/infection to the right foot. The patient has an ulcerating wound to the distal plantar portion of the right foot. She has pain to this area but denies any weeping or drainage. The patient does have a history of a previous wound in the same area. She was seen here, and admitted, in November 2019 when she was found to have an abscess and signs of osteomyelitis. The patient also presents with extremely e levated blood pressure and says that she has been out of her blood pressure medications for the past 2 weeks. She does not know the names of these medications and does not have a primary care physician. She denies any fever, chest pain, shortness of breath. She feels that the right foot is swollen. The pain worsens with bearing weight or ambulation. She has a past medical history of insulin-dependent diabetes, hypertension, and based on previous records she appears to have a history of chronic kidney disease. ED Past Medical Hx - Past Medical History Previous Medical History?: Yes Hx Hypertension: Yes Hx Heart Attack/AMI: No Hx Congestive Heart Failure: No Hx Diabetes: Yes Hx Deep Vein Thrombosis: No Hx Liver Disease: No Hx Renal Disease: No Hx Seizures: No Hx Kidney Stones: No Hx Asthma: No Hx COPD: No Hx Dementia: No Hx HIV: No Additional medical history: Chronic wound 1 year on sole of right foot. - Surgical History Hx Coronary Stent: No Hx Pacemaker: No Hx Internal Defibrillator: No - Social History Smoking Status: Never Smoker Substance Use Type: None - Medications Home Medications: Home Medications Medication Instructions Recorded Confirmed Last Taken Type Prednisone [predniSONE 10 mg 10 mg PO .TAPER #52 tab.ds.pk 09/20/19 11/22/19 Unknown Rx (6-Day Pack, 21 Tabs)] Acetaminophen [Acetaminophen TAB] 650 mg PO Q4H PRN 30 Days #30 11/26/19 Unknown Rx tablet Metoprolol [Lopressor TAB] 75 mg PO BID 30 Days #60 tablet 11/26/19 Unknown Rx Warfarin Sodium [Coumadin] 5 mg PO DAILY 15 Days #15 tab 11/26/19 Unknown Rx amLODIPine 10 mg PO QDAY tablet 11/26/19 Unknown Rx hydrALAZINE [Apresoline TAB] 100 mg PO TID 30 Days #90 tab 11/26/19 Unknown Rx ED Review of Systems ROS: Stated complaint: BLISSITER ON FT FOOT Other details as noted in HPI Comment: All other systems reviewed and negative Constitutional: denies: chills, fever Eyes: denies: eye pain, vision change ENT: denies: ear pain, throat pain Respiratory: denies: cough, shortness of breath Cardiovascular: denies: chest pain, palpitations Gastrointestinal: denies: abdominal pain, vomiting Genitourinary: denies: dysuria, discharge Musculoskeletal: joint swelling, arthralgia Skin: lesions. denies: pruritus Neurological: denies: numbness, paresthesias Physical Exam - Physical Exam Vital Signs: Vital Signs 05/07/20 14:19 Temperature 97.9 F Pulse Rate 100 H Respiratory 16 Rate Blood Pressure 218/121 [Right] O2 Sat by Pulse 100 Oximetry Physical Exam: GENERAL: The patient is well-developed well-nourished. HENT: Normocephalic. Atraumatic. Patient has moist mucous membranes. EYES: Extraocular motions are intact. NECK: Supple. Trachea is midline. CHEST/LUNGS: Clear to auscultation. There is no respiratory distress noted. HEART/CARDIOVASCULAR: Regular. There is mild tachycardia. There is no murmur. ABDOMEN: Abdomen is soft, nontender. Patient has normal bowel sounds. Obese habitus. SKIN: There is a nickel sized ulcerating wound to the middle of the distal plantar right foot. There also appears to be a small blister or superficial abscess to the plantar portion and webbing between toes 1 and 2. The right foot has some mild nonpitting swelling. NEURO: The patient is awake, alert, and oriented. The patient is cooperative. Normal speech. MUSCULOSKELETAL: There is tenderness to palpation to the plantar distal right foot. There is no limitation range of motion. ED Course Vital Signs 05/07/20 14:19 Temperature 97.9 F Pulse Rate 100 H Respiratory 16 Rate Blood Pressure 218/121 [Right] O2 Sat by Pulse 100 Oximetry ED Medical Decision Making - Lab Data Result diagrams: 05/07/20 15:05 05/07/20 15:05 - Radiology Data Radiology results: report reviewed RIGHT FOOT 3 VIEWS INDICATION / CLINICAL INFORMATION: worsening of chronic diabetic wound. COMPARISON: None available. FINDINGS: Deep soft tissue swelling of the forefoot, with what appears to be active bone destruction of the distal and of the third metacarpal. Appearance is indicative of active osteomyelitis. - Medical Decision Making This patient presents to the emergency department with a complaint of a 3-day history of progressively worsening pain to the bottom of her right foot and also a 3 to 4-day history of a wound or lesion to this area. X-ray shows concern for acute osteomyelitis of the third metatarsal. Her labs show some mild hypoglycemia. Patient was given a one half amp of D50 and her blood sugar came up. She also appears to have some acute on chronic renal insufficiency. The patient was started on vancomycin and Rocephin for the osteomyelitis. Patient also presents with extremely elevated blood pressure and medication noncompliance for the past 2 weeks. She was given a dose of hydralazine and labetalol and her blood pressure has come down to a more reasonable level. The patient will be admitted to the hospital for further evaluation and treatment and was accepted for admission by the hospitalist. Critical Care Time: Yes Critical care time in (mins) excluding proc time.: 35 Critical care attestation.: If time is entered above; I have spent that time in minutes in the direct care of this critically ill patient, excluding procedure time. Critical care time was spent on this patient in doing her initial evaluation, multiple reevaluations, interpretation of the imaging, reviewing the patient's labs, treatment of the mild hypoglycemia, IV antibiotics for the osteomyelitis, multip le doses of IV antihypertensive medication for the hypertensive urgency. Critical Care Time: 35 minutes ED Disposition Clinical Impression: Acute osteomyelitis of metatarsal bone of right foot, Hypertensive urgency Acute on chronic renal failure Qualifiers: Acute renal failure type: unspecified Chronic kidney disease stage: unspecified stage Qualified Code(s): N17.9 - Acute kidney failure, unspecified; N18.9 - Chronic kidney disease, unspecified Disposition: DC-09 OP ADMIT IP TO THIS HOSP Is pt being admited?: Yes Condition: Serious Time of Disposition: 20:42
[2020-05-07] MEDS ORDERED: MORPHINE 4 MG/1 ML INJ IV ONE (16:54)
[2020-05-07] MEDS ORDERED: VANCOMYCIN 2,000 MG in SODIUM CHLORIDE 0.9% 500 ML 500 ML IV ONE (17:30)
[2020-05-07] MEDS ORDERED: ONDANSETRON 4 MG/2 ML INJ IV ONE (19:37)
--- NOTE | 2020-05-07 23:23 | History and Physical Report ---
History of Present Illness Date of examination: 05/07/20 Date of admission: May 07, 2020 Chief complaint: 05/07/2020 History of present illness: 29-year-old female with history of diabetes and hypertension comes in for right foot infection. Patient has been allergy of perforating ulcer on the right foot on the heel which is improved over the last 1 year. Now it is a 1 cm circular dark looking ulcer with a surrounding bleb and swelling of the feet. No fever or chills. Patient has not been taking her blood pressure medication for 2 weeks. In November 2019 she was found to have an abscess and signs of osteomyelitis. Patient says the the ulcer on the right foot heel is nearly healed and showed me pictures from 1 year ago to now it used to be a 3 cm ulcer which has come down to 1 cm but the ulcer is covered with eschar and not healed completely. It is a 1 cm x 1 cm ulcer. There is a small bleb adjacent to the ulcer near the fourth toe of the right foot. No coronavirus exposure. Patient is on Coumadin for anticoagulation. Previous Medical History?: Yes --Hypertension: Yes -- Diabetes: Yes Additional medical history: Chronic wound 1 year on sole of right foot. - Surgical History --Coronary Stent: No - Social History Smoking Status: Never Smoker Substance Use Type: None Review of Systems ROS: Stated complaint: BLISSITER ON FT FOOT Other details as noted in HPI Comment: All other systems reviewed and negative Constitutional: denies: chills, fever Eyes: denies: eye pain, vision change ENT: denies: ear pain, throat pain Respiratory: denies: cough, shortness of breath Cardiovascular: denies: chest pain, palpitations Gastrointestinal: denies: abdominal pain, vomiting Genitourinary: denies: dysuria, discharge Musculoskeletal: joint swelling, arthralgia Skin: lesions. denies: pruritus Neurological: denies: numbness, paresthesias 29-year-old female Medications and Allergies Allergies Allergy/AdvReac Type Severity Reaction Status Date / Time No Known Allergies Allergy Unverified 08/24/19 12:03 Home Medications Medication Instructions Recorded Confirmed Last Taken Type Prednisone [predniSONE 10 mg 10 mg PO .TAPER #52 tab.ds.pk 09/20/19 11/22/19 Unknown Rx (6-Day Pack, 21 Tabs)] Acetaminophen [Acetaminophen TAB] 650 mg PO Q4H PRN 30 Days #30 11/26/19 Unknown Rx tablet Metoprolol [Lopressor TAB] 75 mg PO BID 30 Days #60 tablet 11/26/19 Unknown Rx Warfarin Sodium [Coumadin] 5 mg PO DAILY 15 Days #15 tab 11/26/19 Unknown Rx amLODIPine 10 mg PO QDAY tablet 11/26/19 Unknown Rx hydrALAZINE [Apresoline TAB] 100 mg PO TID 30 Days #90 tab 11/26/19 Unknown Rx Exam - Constitutional Vitals: Temp Pulse Resp BP Pulse Ox 97.9 F 89 15 175/94 99 05/07/20 14:19 05/07/20 22:30 05/07/20 22:30 05/07/20 22:30 05/07/20 22:30 General appearance: Present: no acute distress, well-nourished - EENT Eyes: Present: PERRL ENT: hearing intact, clear oral mucosa - Neck Neck: Present: supple, normal ROM - Respiratory Respiratory effort: normal Respiratory: bilateral: CTA - Cardiovascular Heart rate: 78 Rhythm: regular Heart Sounds: Present: S1 & S2. Absent: rub, click - Extremities Extremities: no ischemia, pulses intact, pulses symmetrical, No edema, abnormal (Right foot ulcer on the heel just adjacent to the third and fourth toes about 2 inches away. And there is a small blood the other third and fourth toe of the right foot.) Extremity abnormal: other (As above) Peripheral Pulses: within normal limits - Abdominal General gastrointestinal: Present: soft, non-tender, non-distended, normal bowel sounds Female genitourinary: Present: normal - Rectal Rectal Exam: deferred - Integumentary Integumentary: Present: clear, warm, dry - Musculoskeletal Musculoskeletal: gait normal, strength equal bilaterally - Psychiatric Psychiatric: appropriate mood/affect, intact judgment & insight - Neurologic Neurologic: CNII-XII intact, moves all extremities - Allied Health Allied health notes reviewed: nursing, case management Results - Labs CBC & Chem 7: 05/08/20 05:52 05/08/20 05:52 Labs: Laboratory Last Values WBC 13.1 K/mm3 (4.5-11.0) H 05/07/20 15:05 RBC 4.05 M/mm3 (3.65-5.03) 05/07/20 15:05 Hgb 9.3 gm/dl (10.1-14.3) L 05/07/20 15:05 Hct 29.3 % (30.3-42.9) L 05/07/20 15:05 MCV 72 fl (79-97) L 05/07/20 15:05 MCH 23 pg (28-32) L 05/07/20 15:05 MCHC 32 % (30-34) 05/07/20 15:05 RDW 16.8 % (13.2-15.2) H 05/07/20 15:05 Plt Count 381 K/mm3 (140-440) 05/07/20 15:05 Lymph % (Auto) 15.8 % (13.4-35.0) 05/07/20 15:05 Dolores % (Auto) 10.8 % (0.0-7.3) H 05/07/20 15:05 Eos % (Auto) 3.1 % (0.0-4.3) 05/07/20 15:05 Baso % (Auto) 1.1 % (0.0-1.8) 05/07/20 15:05 Lymph # (Auto) 2.1 K/mm3 (1.2-5.4) 05/07/20 15:05 Dolores # (Auto) 1.4 K/mm3 (0.0-0.8) H 05/07/20 15:05 Eos # (Auto) 0.4 K/mm3 (0.0-0.4) 05/07/20 15:05 Baso # (Auto) 0.2 K/mm3 (0.0-0.1) H 05/07/20 15:05 Seg Neutrophils % 69.2 % (40.0-70.0) 05/07/20 15:05 Seg Neutrophils # 9.1 K/mm3 (1.8-7.7) H 05/07/20 15:05 Sodium 138 mmol/L (137-145) 05/07/20 15:05 Potassium 4.3 mmol/L (3.6-5.0) 05/07/20 15:05 Chloride 107.3 mmol/L (98-107) H 05/07/20 15:05 Carbon Dioxide 20 mmol/L (22-30) L 05/07/20 15:05 Anion Gap 15 mmol/L 05/07/20 15:05 BUN 49 mg/dL (7-17) H 05/07/20 15:05 Creatinine 3.5 mg/dL (0.6-1.2) H 05/07/20 15:05 Estimated GFR 19 ml/min 05/07/20 15:05 BUN/Creatinine Ratio 14 % 05/07/20 15:05 Glucose 61 mg/dL (65-100) L 05/07/20 15:05 POC Glucose 87 mg/dL (70-105) 05/07/20 20:18 Lactic Acid 0.60 mmol/L (0.7-2.0) L 05/07/20 15:05 Calcium 9.0 mg/dL (8.4-10.2) 05/07/20 15:05 Total Bilirubin < 0.20 mg/dL (0.1-1.2) 05/07/20 15:05 AST 19 units/L (5-40) 05/07/20 15:05 ALT 20 units/L (7-56) 05/07/20 15:05 Alkaline Phosphatase 118 units/L (35-129) 05/07/20 15:05 Total Protein 7.9 g/dL (6.3-8.2) 05/07/20 15:05 Albumin 3.6 g/dL (3.9-5) L 05/07/20 15:05 Albumin/Globulin Ratio 0.8 % 05/07/20 15:05 - Imaging and Cardiology Imaging and Cardiology: Foot x-ray Deep soft tissue swelling of the forefoot is about appears to be active bone destruction of the distal end of the third metatarsal. Appearance is indicative of fat active osteomyelitis. Irwin/IV: IV Catheter Type [Left Peripheral IV Antecubital] Assessment and Plan Advance Directives: Yes (Full code) Plan of care discussed with patient/family: Yes - Patient Problems (1) Cellulitis of right foot Current Visit: Yes Status: Acute Plan to address problem: Patient initiated on Unasyn IV and vancomycin IV Wound care consult requested (2) Chronic osteomyelitis of right foot Current Visit: Yes Status: Chronic Plan to address problem: Patient has osteomyelitis of the distal end of the third metatarsal We will get orthopedic consult will also get ID consult (3) Anemia Current Visit: No Status: Chronic Qualifiers: Anemia type: due to chronic kidney disease Plan to address problem: Anemia work-up (4) Acute kidney injury Current Visit: No Status: Acute Plan to address problem: IV fluids for now Nephrology consult ATN (5) Hypertensive urgency, malignant Current Visit: No Status: Acute Plan to address problem: Blood pressure medications initiated and IV hydralazine 10 mg every 3 hours as needed (6) T2DM (type 2 diabetes mellitus) Current Visit: Yes Status: Chronic Qualifiers: Diabetes mellitus [facility] insulin use: unspecified [facility] insulin use status Plan to address problem: Coverage and check hemoglobin A1c Initiate on insulin or oral hypoglycemics depending on her blood sugar range and A1c (7) DVT prophylaxis Current Visit: No Status: Acute Plan to address problem: On Coumadin and GI prophylaxis
[2020-05-07] MEDS: INSULIN LISPRO 100 UNIT/ML VIAL 3 mL SUB-Q SCH (23:30)
[2020-05-07] MEDS ORDERED: ACETAMINOPHEN 325 MG TAB PO PRN ×2 (23:30→23:32)
[2020-05-07] MEDS ORDERED: ONDANSETRON 4 MG/2 ML INJ IV PRN (23:32)
[2020-05-07] MEDS ORDERED: SODIUM CHLORIDE 0.9% 1000 ML 1,000 ML IV SCH (23:45)
[2020-05-07] MEDS: METOPROLOL TARTRATE 25 MG TAB PO SCH (23:53)
[2020-05-08] MEDS: HYDROmorphone 1 MG/1 ML INJ IV PRN ×5 (01:00→21:32)
[2020-05-08] MEDS: AMPICILLIN/SULBACTA 1.5GM/50ML 1.5 GM/50 ML BAG IV SCH ×4 (02:00→22:14)
[2020-05-08] MEDS ORDERED: VANCOMYCIN PHARMACY TO DOSE IV SCH (02:00)
[2020-05-08 06:27] LABS: Basophils # (Auto) 0.1 K/mm3 (0.0-0.1); Basophils % (Auto) 0.9 % (0.0-1.8); Eosinophils # (Auto) 0.2 K/mm3 (0.0-0.4); Eosinophils % (Auto) 1.7 % (0.0-4.3); Hematocrit 27.6 % (30.3-42.9); Hemoglobin 8.7 gm/dl (10.1-14.3); Lymphocytes % (Auto) 14.8 % (13.4-35.0); Mean Corpuscular HGB Conc 31 % (30-34); Mean Corpuscular Volume 73 fl (79-97); Monocytes # (Auto) 1.2 K/mm3 (0.0-0.8); Monocytes % (Auto) 8.5 % (0.0-7.3); Platelet Count 395 K/mm3 (140-440); Red Blood Count 3.81 M/mm3 (3.65-5.03); Red Cell Distribution Width 16.6 % (13.2-15.2)
[2020-05-08 06:55] LABS: Alanine Aminotransferase 17 units/L (7-56); Albumin 3.3 g/dL (3.9-5); BUN/Creatinine Ratio 14; Blood Urea Nitrogen 49 mg/dL (7-17); Calcium 8.9 mg/dL (8.4-10.2); Hemolysis Index 11
[2020-05-08] MEDS: hydrALAZINE 100 MG TAB PO SCH ×4 (07:17→21:00)
[2020-05-08] MEDS: METOPROLOL TARTRATE 25 MG TAB PO SCH ×3 (07:19→21:31)
--- NOTE | 2020-05-08 08:31 | Progress Note ---
Assessment and Plan Assessment and plan: 29-year-old female with history of diabetes and hypertension comes in for right foot infection. Patient has been allergy of perforating ulcer on the right foot on the heel which is improved over the last 1 year. Now it is a 1 cm circular dark looking ulcer with a surrounding bleb and swelling of the feet. No fever or chills. Patient has not been taking her blood pressure medication for 2 weeks. In November 2019 she was found to have an abscess and signs of osteomyelitis. Patient says the the ulcer on the right foot heel is nearly healed and showed me pictures from 1 year ago to now it used to be a 3 cm ulcer which has come down to 1 cm but the ulcer is covered with eschar and not healed completely. It is a 1 cm x 1 cm ulcer. There is a small bleb adjacent to the ulcer near the fourth toe of the right foot. No coronavirus exposure. Patient is on Coumadin for anticoagulation. (1) Cellulitis of right foot Current Visit: Yes Status: Acute Plan to address problem: Patient initiated on Unasyn IV and vancomycin IV Wound care consult requested ID consulted Surgery consulted to evaluate for possible debridement. (2) Hypertensive urgency, malignant Current Visit: No Status: Acute Plan to address problem: Blood pressure medications initiated and IV hydralazine 10 mg every 3 hours as needed (3) T2DM (type 2 diabetes mellitus) Current Visit: Yes Status: Chronic Qualifiers: Diabetes mellitus [facility] insulin use: unspecified [facility] insulin use status Plan to address problem: Coverage and check hemoglobin A1c Initiated on insulin or oral hypoglycemics ending her blood sugar range (4) Chronic osteomyelitis of right foot Current Visit: Yes Status: Chronic Plan to address problem: Patient has osteomyelitis of the distal end of the third metatarsal We will get orthopedic consult will also get ID consult (5) Anemia Current Visit: No Status: Chronic Qualifiers: Anemia type: due to chronic kidney disease Qualified Code(s): D64.9 - Anemia, unspecified Plan to address problem: Anemia work-up (6) Acute kidney injury Current Visit: No Status: Acute Plan to address problem: IV fluids for now Nephrology consult (7) DVT prophylaxis Current Visit: No Status: Acute Plan to address problem: On Coumadin and GI prophylaxis History Interval history: Patient seen and examined, no new complaints, no fever reported overnight Hospitalist Physical - Physical exam Narrative exam: General appearance: Present: no acute distress, well-nourished - EENT Eyes: Present: PERRL ENT: hearing intact, clear oral mucosa - Neck Neck: Present: supple, normal ROM - Respiratory Respiratory effort: normal Respiratory: bilateral: CTA - Cardiovascular Heart rate: 78 Rhythm: regular Heart Sounds: Present: S1 & S2. Absent: rub, click - Extremities Extremities: no ischemia, pulses intact, pulses symmetrical, No edema, abnormal (Right foot ulcer on the heel just adjacent to the third and fourth toes about 2 inches away. And there is a small blood the other third and fourth toe of the right foot.) Extremity abnormal: other (As above) Peripheral Pulses: within normal limits - Abdominal General gastrointestinal: Present: soft, non-tender, non-distended, normal bowel sounds Female genitourinary: Present: normal - Rectal Rectal Exam: deferred - Integumentary Integumentary: Present: clear, warm, dry - Musculoskeletal Musculoskeletal: gait normal, strength equal bilaterally - Psychiatric Psychiatric: appropriate mood/affect, intact judgment & insight - Neurologic Neurologic: CNII-XII intact, moves all extremities - Allied Health Allied health notes reviewed: nursing, case management - Constitutional Vitals: Temp Pulse Resp BP Pulse Ox 97.6 F 82 18 161/83 94 05/08/20 07:00 05/08/20 07:00 05/08/20 07:00 05/08/20 07:00 05/08/20 07:00 General appearance: Present: no acute distress, well-nourished Results - Labs CBC & Chem 7: 05/08/20 05:52 05/08/20 05:52 Labs: Laboratory Last Values WBC 13.5 K/mm3 (4.5-11.0) H 05/08/20 05:52 RBC 3.81 M/mm3 (3.65-5.03) 05/08/20 05:52 Hgb 8.7 gm/dl (10.1-14.3) L 05/08/20 05:52 Hct 27.6 % (30.3-42.9) L 05/08/20 05:52 MCV 73 fl (79-97) L 05/08/20 05:52 MCH 23 pg (28-32) L 05/08/20 05:52 MCHC 31 % (30-34) 05/08/20 05:52 RDW 16.6 % (13.2-15.2) H 05/08/20 05:52 Plt Count 395 K/mm3 (140-440) 05/08/20 05:52 Lymph % (Auto) 14.8 % (13.4-35.0) 05/08/20 05:52 Forrest % (Auto) 8.5 % (0.0-7.3) H 05/08/20 05:52 Eos % (Auto) 1.7 % (0.0-4.3) 05/08/20 05:52 Baso % (Auto) 0.9 % (0.0-1.8) 05/08/20 05:52 Lymph # (Auto) 2.0 K/mm3 (1.2-5.4) 05/08/20 05:52 Forrest # (Auto) 1.2 K/mm3 (0.0-0.8) H 05/08/20 05:52 Eos # (Auto) 0.2 K/mm3 (0.0-0.4) 05/08/20 05:52 Baso # (Auto) 0.1 K/mm3 (0.0-0.1) 05/08/20 05:52 Seg Neutrophils % 74.1 % (40.0-70.0) H 05/08/20 05:52 Seg Neutrophils # 10.0 K/mm3 (1.8-7.7) H 05/08/20 05:52 Sodium 140 mmol/L (137-145) 05/08/20 05:52 Potassium 4.9 mmol/L (3.6-5.0) 05/08/20 05:52 Chloride 108.7 mmol/L (98-107) H 05/08/20 05:52 Carbon Dioxide 20 mmol/L (22-30) L 05/08/20 05:52 Anion Gap 16 mmol/L 05/08/20 05:52 BUN 49 mg/dL (7-17) H 05/08/20 05:52 Creatinine 3.5 mg/dL (0.6-1.2) H 05/08/20 05:52 Estimated GFR 19 ml/min 05/08/20 05:52 BUN/Creatinine Ratio 14 % 05/08/20 05:52 Glucose 100 mg/dL (65-100) 05/08/20 05:52 POC Glucose 87 mg/dL (70-105) 05/08/20 06:58 Hemoglobin A1c 6.5 % (4-6) H 05/08/20 05:52 Lactic Acid 0.60 mmol/L (0.7-2.0) L 05/07/20 15:05 Calcium 8.9 mg/dL (8.4-10.2) 05/08/20 05:52 Total Bilirubin < 0.20 mg/dL (0.1-1.2) 05/08/20 05:52 AST 16 units/L (5-40) 05/08/20 05:52 ALT 17 units/L (7-56) 05/08/20 05:52 Alkaline Phosphatase 109 units/L (35-129) 05/08/20 05:52 Total Protein 7.7 g/dL (6.3-8.2) 05/08/20 05:52 Albumin 3.3 g/dL (3.9-5) L 05/08/20 05:52 Albumin/Globulin Ratio 0.8 % 05/08/20 05:52 Irwin/IV: Voiding Method Toilet IV Catheter Type [Left Peripheral IV Antecubital] Active Medications - Current Medications Current Medications: Generic Name Dose Route Start Last Admin Trade Name Freq PRN Reason Stop Dose Admin Acetaminophen 650 mg 05/07/20 23:32 Acetaminophen 325 Mg Tab PO Q4H PRN Pain MILD(1-3)/Fever >100.5/CLAIRE Amlodipine Besylate 10 mg 05/08/20 10:00 Amlodipine 10 Mg Tab PO QDAY ARLETH Hydralazine HCl 100 mg 05/08/20 08:00 05/08/20 07:17 Hydralazine 100 Mg Tab PO 100 mg TID ARLETH Administration Hydromorphone HCl 0.5 mg 05/07/20 23:32 05/08/20 07:18 Hydromorphone 1 Mg/1 Ml Inj IV 0.5 mg Q3H PRN Administration Pain , Severe (7-10) Sodium Chloride 1,000 mls @ 100 mls/hr 05/07/20 23:45 05/07/20 23:35 Nacl 0.9% 1000 Ml IV 05/08/20 12:00 100 mls/hr DIRECT ARLETH Administration Ampicillin Sodium/Sulbactam Sodium 1.5 gm in 50 mls @ 100 mls/hr 05/08/20 0 2:00 05/08/20 02:00 Unasyn/Ns 1.5 Gm/50 Ml IV 100 mls/hr Q6H [facility] Administration Protocol Insulin Human Lispro 0 unit 05/08/20 07:30 05/07/20 23:30 Insulin Lispro 100 Unit/Ml Vial 3 Ml SUB-Q Not Given ACHS [facility] Protocol Metoprolol Tartrate 75 mg 05/07/20 23:45 05/08/20 07:19 Metoprolol Tartrate 25 Mg Tab PO 75 mg BID [facility] Administration Ondansetron HCl 4 mg 05/07/20 23:32 Ondansetron 4 Mg/2 Ml Inj IV Q8H PRN Nausea And Vomiting Oxycodone/Acetaminophen 1 tab 05/07/20 23:32 Oxycodone /Acetaminophen 5-325mg Tab PO Q6H PRN Pain, Moderate (4-6) Sodium Chloride 10 ml 05/08/20 10:00 Sodium Chloride 0.9% 10 Ml Flush Syringe IV BID [facility] Sodium Chloride 10 ml 05/07/20 23:32 Sodium Chloride 0.9% 10 Ml Flush Syringe IV PRN PRN LINE FLUSH Warfarin Sodium 5 mg 05/08/20 17:00 Warfarin 5 Mg Tab PO DAILY@1700 [facility] Protocol
[2020-05-08] MEDS: INSULIN LISPRO 100 UNIT/ML VIAL 3 mL SUB-Q SCH ×4 (08:45→22:21)
[2020-05-08] MEDS: amLODIPine 10 MG TAB PO SCH (09:19)
[2020-05-08 11:21] LABS: INR 1.07 (0.87-1.13)
[2020-05-08] MEDS ORDERED: FLU VACC QUAD 2020-2021 (6 months +)/PF 60 0.5 ML SYRINGE IM ONE (12:00)
--- NOTE | 2020-05-08 12:06 | Consultation ---
History of Present Illness - Reason for Consult Consult date: 05/08/20 acute renal failure, chronic renal failure - History of Present Illness The patient is a 29 YO female with history significant for Morbid obesity, DM type 1, HTN, chronic right foot ulcer, CKD stage 4 and medical non-compliance who presented to [facility] ED [facility]/ with 3-day history of progressively worsening wound infection to the right foot. She reports swelling anf pain to this area but denied any weeping or drainage. The pain worsens with bearing weight or ambulation. The patient was admitted here, in November 2019 when she was found to have an abscess and signs of osteomyelitis. The patient also presents with extremely elevated blood pressure and says that she has been out of her blood pressure medications for the past 2 weeks. She does not know the names of these medications and does not have a primary care physician. Labs significant for Creat 3.5 and BUN 49. Patient admitted to medical floor for further evaluation. Nephrology was consulted for further evaluation. Medications and Allergies Allergies Allergy/AdvReac Type Severity Reaction Status Date / Time No Known Allergies Allergy Unverified 08/24/19 12:03 Home Medications Medication Instructions Recorded Confirmed Last Taken Type Prednisone [predniSONE 10 mg 10 mg PO .TAPER #52 tab.ds.pk 09/20/19 11/22/19 Unknown Rx (6-Day Pack, 21 Tabs)] Acetaminophen [Acetaminophen TAB] 650 mg PO Q4H PRN 30 Days #30 11/26/19 Unknown Rx tablet Metoprolol [Lopressor TAB] 75 mg PO BID 30 Days #60 tablet 11/26/19 Unknown Rx Warfarin Sodium [Coumadin] 5 mg PO DAILY 15 Days #15 tab 11/26/19 Unknown Rx amLODIPine 10 mg PO QDAY tablet 11/26/19 Unknown Rx hydrALAZINE [Apresoline TAB] 100 mg PO TID 30 Days #90 tab 11/26/19 Unknown Rx Active Meds: Active Medications Acetaminophen (Acetaminophen 325 Mg Tab) 650 mg PO Q4H PRN PRN Reason: Pain MILD(1-3)/Fever >100.5/CLAIRE Amlodipine Besylate (Amlodipine 10 Mg Tab) 10 mg PO QDAY [facility] Last Admin: 05/08/20 09:19 Dose: 10 mg Documented by: Hydralazine HCl (Hydralazine 100 Mg Tab) 100 mg PO TID [facility] Last Admin: 05/08/20 11:59 Dose: 100 mg Documented by: Hydromorphone HCl (Hydromorphone 1 Mg/1 Ml Inj) 0.5 mg IV Q3H PRN PRN Reason: Pain , Severe (7-10) Last Admin: 05/08/20 11:59 Dose: 0.5 mg Documented by: Ampicillin Sodium/Sulbactam Sodium (Unasyn/Ns 1.5 Gm/50 Ml) 1.5 gm in 50 mls @ 100 mls/hr IV Q6H [facility]; Protocol Last Admin: 05/08/20 09:18 Dose: 100 mls/hr Documented by: Insulin Human Lispro (Insulin Lispro 100 Unit/Ml Vial 3 Ml) 0 unit SUB-Q ACHS [facility]; Protocol Last Admin: 05/08/20 11:56 Dose: Not Given Documented by: Metoprolol Tartrate (Metoprolol Tartrate 25 Mg Tab) 75 mg PO BID [facility] Last Admin: 05/08/20 09:23 Dose: Not Given Documented by: Ondansetron HCl (Ondansetron 4 Mg/2 Ml Inj) 4 mg IV Q8H PRN PRN Reason: Nausea And Vomiting Oxycodone/Acetaminophen (Oxycodone /Acetaminophen 5-325mg Tab) 1 tab PO Q6H PRN PRN Reason: Pain, Moderate (4-6) Sodium Chloride (Sodium Chloride 0.9% 10 Ml Flush Syringe) 10 ml IV BID [facility] Last Admin: 05/08/20 09:23 Dose: 10 ml Documented by: Sodium Chloride (Sodium Chloride 0.9% 10 Ml Flush Syringe) 10 ml IV PRN PRN PRN Reason: LINE FLUSH Warfarin Sodium (Warfarin 5 Mg Tab) 5 mg PO DAILY@1700 [facility]; Protocol Exam - Vital Signs Vital signs: Vital Signs Temp Pulse Resp BP Pulse Ox 97.9 F 100 H 16 218/121 100 05/07/20 14:19 05/07/20 14:19 05/07/20 14:19 05/07/20 14:19 05/07/20 14:19 Results - Lab Results 05/11/20 05:29 05/11/20 05:29 Most recent lab results Calcium 8.9 mg/dL (8.4-10.2) 05/08/20 05:52 Assessment and Plan 1. Acute kidney injury vs progressive CKD: Suspected Acute kidney injury superimposed on CKD stage 4. 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 Prior Creatinine was around 3 in November 2019. Most likely progressive CKD in the setting of poorly controlled DM / HTN. Monitor renal function. Renal prognosis is guarded. Avoid nephrotoxic agents. Meds dosage based on GFR. 2. FEN: Mild metabolic acidosis, monitor. Monitor lytes and volume status. 3. 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 Abx per primary Wound care consult. Surgery consulted to evaluate for possible debridement. 4. Diabetes mellitus type 1: Monitor BG closely. 5. Uncontrolled Hypertension: Resume home meds. Monitor BP. 6. Microcytic Anemia, POA: Monitor Hb. Examination: The patient was not examined today. However the examination findings from other providers noted. The current and previous medical records are reviewed in detail as are laboratory and imaging data reviewed when appropriate. Medications being given are also reviewed. In addition the case has been discussed with the attending hospitalist and the nurse when needed. New renal recommendations as above.
[2020-05-08] MEDS ORDERED: hydrALAZINE 20 MG/1 ML INJ IV PRN (14:02)
[2020-05-08] MEDS: oxyCODONE /ACETAMINOPHEN 5-325MG TAB PO PRN (15:20)
[2020-05-08 16:12] LABS: % Iron Saturation 15.38 %
[2020-05-08] MEDS ORDERED: WARFARIN 5 MG TAB PO SCH (17:00)
[2020-05-08] MEDS ORDERED: VANCOMYCIN 1,750 MG in SODIUM CHLORIDE 0.9% 500 ML 500 ML IV SCH (18:00)
[2020-05-09] MEDS: HYDROmorphone 1 MG/1 ML INJ IV PRN ×5 (03:08→20:49)
[2020-05-09] MEDS: AMPICILLIN/SULBACTA 1.5GM/50ML 1.5 GM/50 ML BAG IV SCH ×4 (03:22→20:50)
[2020-05-09 06:13] LABS: INR 0.99 (0.87-1.13)
[2020-05-09 06:19] LABS: Calcium 8.4 mg/dL (8.4-10.2)
[2020-05-09 07:46] LABS: Bacteria,Urine 1+ /HPF (Negative); Bilirubin,Urine NEG (Negative); Blood,Urine SM (Negative); Color,Urine Straw (Yellow); Urobilinogen,Urine < 2.0 mg/dL (<2.0)
[2020-05-09] MEDS: INSULIN LISPRO 100 UNIT/ML VIAL 3 mL SUB-Q SCH ×4 (08:09→23:06)
[2020-05-09] MEDS: hydrALAZINE 100 MG TAB PO SCH ×3 (08:19→20:50)
--- NOTE | 2020-05-09 09:20 | Progress Note ---
Assessment and Plan Assessment and plan: 29-year-old female with history of diabetes and hypertension comes in for right foot infection. Patient has been allergy of perforating ulcer on the right foot on the heel which is improved over the last 1 year. Now it is a 1 cm circular dark looking ulcer with a surrounding bleb and swelling of the feet. No fever or chills. Patient has not been taking her blood pressure medication for 2 weeks. In November 2019 she was found to have an abscess and signs of osteomyelitis. Patient says the the ulcer on the right foot heel is nearly healed and showed me pictures from 1 year ago to now it used to be a 3 cm ulcer which has come down to 1 cm but the ulcer is covered with eschar and not healed completely. It is a 1 cm x 1 cm ulcer. There is a small bleb adjacent to the ulcer near the fourth toe of the right foot. No coronavirus exposure. Patient is on Coumadin for anticoagulation. 05/09: Continue supportive care. Awaiting ortho input. Continue abx. (1) Cellulitis of right foot Current Visit: Yes Status: Acute Plan to address problem: Patient initiated on Unasyn IV and vancomycin IV Wound care consult requested ID consulted Surgery consulted to evaluate for possible debridement. 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 use status Plan to address problem: Coverage and check hemoglobin A1c Initiated on insulin or oral hypoglycemics ending her blood sugar range (4) Chronic osteomyelitis of right foot Current Visit: Yes Status: Chronic Plan to address problem: Patient has osteomyelitis of the distal end of the third metatarsal We will get orthopedic consult will also get ID consult (5) Anemia Current Visit: No Status: Chronic Qualifiers: Anemia type: due to chronic kidney disease Qualified Code(s): D64.9 - Anemia, unspecified Plan to address problem: Anemia work-up (6) Acute kidney injury Current Visit: No Status: Acute Plan to address problem: IV fluids for now Nephrology consult (7) DVT prophylaxis Current Visit: No Status: Acute Plan to address problem: On Coumadin and GI prophylaxis History Interval history: Patient seen and examined, no new complaints, no fever reported overnight Hospitalist Physical - Physical exam Narrative exam: General appearance: Present: no acute distress, well-nourished - EENT Eyes: Present: PERRL ENT: hearing intact, clear oral mucosa - Neck Neck: Present: supple, normal ROM - Respiratory Respiratory effort: normal Respiratory: bilateral: CTA - Cardiovascular Heart rate: 78 Rhythm: regular Heart Sounds: Present: S1 & S2. Absent: rub, click - Extremities Extremities: no ischemia, pulses intact, pulses symmetrical, No edema, abnormal (Right foot ulcer on the heel just adjacent to the third and fourth toes about 2 inches away. And there is a small blood the other third and fourth toe of the right foot.) Extremity abnormal: other (As above) Peripheral Pulses: within normal limits - Abdominal General gastrointestinal: Present: soft, non-tender, non-distended, normal bowel sounds Female genitourinary: Present: normal - Rectal Rectal Exam: deferred - Integumentary Integumentary: Present: clear, warm, dry - Musculoskeletal Musculoskeletal: gait normal, strength equal bilaterally - Psychiatric Psychiatric: appropriate mood/affect, intact judgment & insight - Neurologic Neurologic: CNII-XII intact, moves all extremities - Allied Health Allied health notes reviewed: nursing, case management - Constitutional Vitals: Temp Pulse Resp BP Pulse Ox 98.3 F 82 18 119/68 100 05/09/20 07:41 05/09/20 07:41 05/09/20 07:41 05/09/20 07:41 05/09/20 07:41 General appearance: Present: no acute distress, well-nourished Results - Labs CBC & Chem 7: 05/08/20 05:52 05/09/20 05:33 Labs: Laboratory Last Values WBC 13.5 K/mm3 (4.5-11.0) H 05/08/20 05:52 RBC 3.81 M/mm3 (3.65-5.03) 05/08/20 05:52 Hgb 8.7 gm/dl (10.1-14.3) L 05/08/20 05:52 Hct 27.6 % (30.3-42.9) L 05/08/20 05:52 MCV 73 fl (79-97) L 05/08/20 05:52 MCH 23 pg (28-32) L 05/08/20 05:52 MCHC 31 % (30-34) 05/08/20 05:52 RDW 16.6 % (13.2-15.2) H 05/08/20 05:52 Plt Count 395 K/mm3 (140-440) 05/08/20 05:52 Lymph % (Auto) 14.8 % (13.4-35.0) 05/08/20 05:52 [place] % (Auto) 8.5 % (0.0-7.3) H 05/08/20 05:52 Eos % (Auto) 1.7 % (0.0-4.3) 05/08/20 05:52 Baso % (Auto) 0.9 % (0.0-1.8) 05/08/20 05:52 Lymph # (Auto) 2.0 K/mm3 (1.2-5.4) 05/08/20 05:52 [place] # (Auto) 1.2 K/mm3 (0.0-0.8) H 05/08/20 05:52 Eos # (Auto) 0.2 K/mm3 (0.0-0.4) 05/08/20 05:52 Baso # (Auto) 0.1 K/mm3 (0.0-0.1) 05/08/20 05:52 Seg Neutrophils % 74.1 % (40.0-70.0) H 05/08/20 05:52 Seg Neutrophils # 10.0 K/mm3 (1.8-7.7) H 05/08/20 05:52 PT 12.9 Sec. (12.2-14.9) 05/09/20 05:33 INR 0.99 (0.87-1.13) 05/09/20 05:33 Sodium 135 mmol/L (137-145) L 05/09/20 05:33 Potassium 4.5 mmol/L (3.6-5.0) 05/09/20 05:33 Chloride 105.8 mmol/L (98-107) 05/09/20 05:33 Carbon Dioxide 20 mmol/L (22-30) L 05/09/20 05:33 Anion Gap 14 mmol/L 05/09/20 05:33 BUN 48 mg/dL (7-17) H 05/09/20 05:33 Creatinine 3.7 mg/dL (0.6-1.2) H 05/09/20 05:33 Estimated GFR 17 ml/min 05/09/20 05:33 BUN/Creatinine Ratio 13 % 05/09/20 05:33 Glucose 132 mg/dL (65-100) H 05/09/20 05:33 POC Glucose 127 mg/dL (70-105) H 05/09/20 07:44 Hemoglobin A1c 6.5 % (4-6) H 05/08/20 05:52 Lactic Acid 0.60 mmol/L (0.7-2.0) L 05/07/20 15:05 Calcium 8.4 mg/dL (8.4-10.2) 05/09/20 05:33 Iron 32 ug/dL (37-170) L 05/08/20 15:07 TIBC 208 mcg/dL (250-450) L 05/08/20 15:07 % Saturation 15.38 % 05/08/20 15:07 Transferrin 164 mg/dl (192-382) L 05/08/20 15:07 Total Bilirubin < 0.20 mg/dL (0.1-1.2) 05/08/20 05:52 AST 16 units/L (5-40) 05/08/20 05:52 ALT 17 units/L (7-56) 05/08/20 05:52 Alkaline Phosphatase 109 units/L (35-129) 05/08/20 05:52 Total Protein 7.7 g/dL (6.3-8.2) 05/08/20 05:52 Albumin 3.3 g/dL (3.9-5) L 05/08/20 05:52 Albumin/Globulin Ratio 0.8 % 05/08/20 05:52 Vitamin B12 1265 pg/mL (211-911) H 05/08/20 15:07 Urine Color Straw (Yellow) 05/08/20 07:30 Urine Turbidity Clear (Clear) 05/08/20 07:30 Urine pH 5.0 (5.0-7.0) 05/08/20 07:30 Ur Specific [place] 1.009 (1.003-1.030) 05/08/20 07:30 Urine Protein 100 mg/dl mg/dL (Negative) 05/08/20 07:30 Urine Glucose (UA) 50 mg/dL (Negative) 05/08/20 07:30 Urine Ketones Neg mg/dL (Negative) 05/08/20 07:30 Urine Blood Sm (Negative) 05/08/20 07:30 Urine Nitrite Neg (Negative) 05/08/20 07:30 Urine Bilirubin Neg (Negative) 05/08/20 07:30 Urine Urobilinogen < 2.0 mg/dL (<2.0) 05/08/20 07:30 Ur Leukocyte Esterase Neg (Negative) 05/08/20 07:30 Urine WBC (Auto) 2.0 /HPF (0.0-6.0) 05/08/20 07:30 Urine RBC (Auto) 3.0 /HPF (0.0-6.0) 05/08/20 07:30 U Epithel Cells (Auto) 3.0 /HPF (0-13.0) 05/08/20 07:30 Urine Bacteria (Auto) 1+ /HPF (Negative) 05/08/20 07:30 Random Vancomycin 16.2 ug/mL (0-40.0) 05/09/20 05:33 [place]/IV: Voiding Method Toilet IV Catheter Type [Left Forearm INT / Saline Lock ] IV Catheter Type [Left Peripheral IV Antecubital] Active Medications - Current Medications Current Medications: Generic Name Dose Route Start Last Admin Trade Name Freq PRN Reason Stop Dose Admin Acetaminophen 650 mg 05/07/20 23:32 Acetaminophen 325 Mg Tab PO Q4H PRN Pain MILD(1-3)/Fever >100.5/CLAIRE Amlodipine Besylate 10 mg 05/08/20 10:00 05/08/20 09:19 Amlodipine 10 Mg Tab PO 10 mg QDAY ARLETH Administration Hydralazine HCl 100 mg 05/08/20 08:00 05/09/20 08:19 Hydralazine 100 Mg Tab PO 100 mg TID ARLETH Administration Hydralazine HCl 10 mg 05/08/20 14:02 05/09/20 05:45 Hydralazine 20 Mg/1 Ml Inj IV 10 mg Q4HR PRN Administration Hypertension Hydromorphone HCl 0.5 mg 05/07/20 23:32 05/09/20 08:23 Hydromorphone 1 Mg/1 Ml Inj IV 0.5 mg Q3H PRN Administration Pain , Severe (7-10) Ampicillin Sodium/Sulbactam Sodium 1.5 gm in 50 mls @ 100 mls/hr 05/08/20 02:00 05/09/20 08:20 Unasyn/Ns 1.5 Gm/50 Ml IV 100 mls/hr Q6H [facility] Administration Protocol Insulin Human Lispro 0 unit 05/08/20 07:30 05/09/20 08:09 Insulin Lispro 100 Unit/Ml Vial 3 Ml SUB-Q Not Given ACHS [facility] Protocol Metoprolol Tartrate 75 mg 05/07/20 23:45 05/08/20 21:31 Metoprolol Tartrate 25 Mg Tab PO 75 mg BID ARLETH Administration Ondansetron HCl 4 mg 05/07/20 23:32 05/08/20 21:32 Ondansetron 4 Mg/2 Ml Inj IV 4 mg Q8H PRN Administration Nausea And Vomiting Oxycodone/Acetaminophen 1 tab 05/07/20 23:32 05/08/20 15:20 Oxycodone /Acetaminophen 5-325mg Tab PO 1 tab Q6H PRN Administration Pain, Moderate (4-6) Sodium Chloride 10 ml 05/08/20 10:00 05/08/20 21:32 Sodium Chloride 0.9% 10 Ml Flush Syringe IV 10 ml BID ARLETH Administration Sodium Chloride 10 ml 05/07/20 23:32 Sodium Chloride 0.9% 10 Ml Flush Syringe IV PRN PRN LINE FLUSH Warfarin Sodium 7.5 mg 05/09/20 17:00 Warfarin 7.5 Mg Tab PO DAILY@1700 [facility] Protocol
[2020-05-09] MEDS: oxyCODONE /ACETAMINOPHEN 5-325MG TAB PO PRN ×2 (12:04→19:16)
[2020-05-09] MEDS: METOPROLOL TARTRATE 25 MG TAB PO SCH ×2 (12:05→23:10)
[2020-05-09 12:20] LABS: Creatinine,Urine 66.5 mg/dL (0.1-20.0); Protein/Creatinine Ratio,Urine 1.44
--- NOTE | 2020-05-09 13:28 | Progress Note ---
Assessment and Plan Cultures: None A/P: 29-year-old female past medical history diabetes, morbid obesity admitted with right foot eschar and osteomyelitis #Right third metatarsal osteomyelitis: Continue antibiotics for now, ultimate antibiotic plan will depend on surgical outlook. #DM2: tight glycemic control for best wound outcomes #Morbid obesity: BMI = 46 Recs: -Continue unasyn for now -If debridement or amputation occurs please obtain cultures and pathology to guide treatment and duration -Follow up gen surg and ortho consults. Thank you for the consult, we will continue to follow. Treasure Barnes MD [facility] ([facility]) O: [phone] F: [phone] Subjective Date of service: 05/09/20 Interval history: 29-year-old female past medical history diabetes, hypertension presented to the hospital complaining of right foot infection. She notes having an ulcer over the right forefoot for some time. She notes for the past year it is largely been improved, however it has worsened recently. She complains of a circular ulcer with blister. In November of last year she was found to have an abscess and osteomyelitis at that time. Afebrile with a white count of 13.5. No cultures available for review. Currently on Unasyn. Imaging personally reviewed: Foot x-ray: Active osteomyelitis of the distal third metatarsal Review of Systems: Bold if positive, otherwise negative General: fevers, chills, rigors HEENT: visual disturbance, diplopia, eye pain Respiratory: cough, sputum, hemoptysis, shortness of breath Cardiovascular: chest pain, syncope Gastrointestinal: nausea, vomiting, diarrhea, abdominal pain Genitourinary: dysuria, hematuria, flank pain Musculoskeletal: neck pain, back pain, joint pain, edema Neurologic: headaches, seizures Hematologic: easy bruising or bleeding Endocrine: night sweats, acute weight loss Skin: rash, jaundice, redness Psychiatric: suicidal, homicidal ideation Objective - Exam Narrative Exam: Physical Exam: Constitutional: Alert, cooperative. No acute distress Head, Ears, Nose: Normocephalic, atraumatic. External ears, nose normal Eyes: Conjunctivae/corneas clear. No icterus. No ptosis. Neck: Supple, no meningeal signs Oral: dentition fair, no thrush Cardiovascular: S1, S2 normal. Respiratory: Good air entry, clear to auscultation bilaterally GI: Soft, non-tender; bowel sounds normal. No peritoneal signs. Musculoskeletal: Right foot eschar overlying third metatarsal head Skin: No rash or abscess Hem/Lymphatic: No palpable cervical or supraclavicular nodes. No lymphangitis Psych: Mood ok. Affect normal Neurological: Awake, alert, oriented. No gross abnormality - Constitutional Vitals: Vital Signs Temp Pulse Resp BP Pulse Ox 97.8 F 89 18 152/90 96 05/09/20 11:58 05/09/20 12:05 05/09/20 11:58 05/09/20 12:05 05/09/20 11:58 Temperature -Last 24 Hours Temperature 97.8 F Temperature 98.3 F Temperature 97.8 F Temperature 98.0 F Temperature 97.5 F Temperature 97.8 F - Labs CBC & Chem 7: 05/08/20 05:52 05/09/20 05:33 Labs: Abnormal lab results 05/07/20 05/08/20 05/08/20 Range/Units 22:54 07:30 15:07 Sodium (137-145) mmol/L Carbon Dioxide (22-30) mmol/L BUN (7-17) mg/dL Creatinine (0.6-1.2) mg/dL Glucose (65-100) mg/dL POC Glucose 111 H (70-105) mg/dL Iron 32 L (37-170) ug/dL TIBC 208 L (250-450) mcg/dL Transferrin 164 L (192-382) mg/dl Vitamin B12 (211-911) pg/mL Urine Creatinine 66.5 H (0.1-20.0) mg/dL Urine Total Protein 96 H (5-11.8) mg/dL 05/08/20 05/08/20 05/08/20 Range/Units 15:07 16:01 22:19 Sodium (137-145) mmol/L Carbon Dioxide (22-30) mmol/L BUN (7-17) mg/dL Creatinine (0.6-1.2) mg/dL Glucose (65-100) mg/dL POC Glucose 127 H 122 H (70-105) mg/dL Iron (37-170) ug/dL TIBC (250-450) mcg/dL Transferrin (192-382) mg/dl Vitamin B12 1265 H (211-911) pg/mL Urine Creatinine (0.1-20.0) mg/dL Urine Total Protein (5-11.8) mg/dL 05/09/20 05/09/20 05/09/20 Range/Units 05:33 07:44 12:02 Sodium 135 L (137-145) mmol/L Carbon Dioxide 20 L (22-30) mmol/L BUN 48 H (7-17) mg/dL Creatinine 3.7 H (0.6-1.2) mg/dL Glucose 132 H (65-100) mg/dL POC Glucose 127 H 120 H (70-105) mg/dL Iron (37-170) ug/dL TIBC (250-450) mcg/dL Transferrin (192-382) mg/dl Vitamin B12 (211-911) pg/mL Urine Creatinine (0.1-20.0) mg/dL Urine Total Protein (5-11.8) mg/dL
[2020-05-09] MEDS: amLODIPine 10 MG TAB PO SCH (14:06)
[2020-05-09] MEDS ORDERED: WARFARIN 7.5 MG TAB PO SCH (17:00)
--- NOTE | 2020-05-09 23:53 | Progress Note ---
Assessment and Plan 1. Acute kidney injury vs progressive CKD: Suspected Acute kidney injury superimposed on CKD stage 4. 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 Prior Creatinine was around 3 in November 2019. Most likely progressive CKD in the setting of poorly controlled DM / HTN. Monitor renal function. Creatinine 3.7 from 3.5. Renal prognosis is guarded. Avoid nephrotoxic agents. Meds dosage based on GFR. 2. FEN: Mild metabolic acidosis, monitor. Monitor lytes and volume status. 3. 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 Abx per ID. Wound care consult. Surgery consulted to evaluate for possible debridement. 4. Diabetes mellitus type 1: Monitor BG closely. 5. Uncontrolled Hypertension: Monitor BP. 6. Microcytic Anemia, POA: Monitor Hb. Examination: The patient was not examined today. However the examination findings from other providers noted. The current and previous medical records are reviewed in detail as are laboratory and imaging data reviewed when appropriate. Medications being given are also reviewed. In addition the case has been discussed with the attending hospitalist and the nurse when needed. New renal recommendations as above. Subjective Date of service: 05/09/20 Objective - Vital Signs Vital signs: Vital Signs - 12hr 05/09/20 05/09/20 05/09/20 11:58 12:05 16:10 Temperature 97.8 F 98.4 F Pulse Rate 89 89 87 Respiratory 18 1 L Rate Blood Pressure 152/90 152/90 133/72 O2 Sat by Pulse 96 94 Oximetry 05/09/20 05/09/20 05/09/20 16:48 19:36 23:09 Temperature 98.1 F 97.9 F Pulse Rate 80 80 Respiratory 18 18 18 Rate Blood Pressure 146/74 140/72 O2 Sat by Pulse 97 94 Oximetry 05/09/20 23:10 Temperature Pulse Rate 81 Respiratory Rate Blood Pressure 140/72 O2 Sat by Pulse Oximetry - Lab 05/11/20 05:29 05/11/20 05:29 Most recent lab results Calcium 8.4 mg/dL (8.4-10.2) 05/09/20 05:33 Urine Creatinine 66.5 mg/dL (0.1-20.0) H 05/08/20 07:30 Urine Sodium 29 mmol/L 05/08/20 07:30 Urine Total Protein 96 mg/dL (5-11.8) H 05/08/20 07:30 Medications & Allergies - Medications Allergies/Adverse Reactions: Allergies No Known Allergies Allergy (Unverified 08/24/19 12:03) Home Medications: Home Medications Medication Instructions Recorded Confirmed Last Taken Type Prednisone [predniSONE 10 mg 10 mg PO .TAPER #52 tab.ds.pk 09/20/19 11/22/19 Unknown Rx (6-Day Pack, 21 Tabs)] Acetaminophen [Acetaminophen TAB] 650 mg PO Q4H PRN 30 Days #30 11/26/19 Unknown Rx tablet Metoprolol [Lopressor TAB] 75 mg PO BID 30 Days #60 tablet 11/26/19 Unknown Rx Warfarin Sodium [Coumadin] 5 mg PO DAILY 15 Days #15 tab 11/26/19 Unknown Rx amLODIPine 10 mg PO QDAY tablet 11/26/19 Unknown Rx hydrALAZINE [Apresoline TAB] 100 mg PO TID 30 Days #90 tab 11/26/19 Unknown Rx Active Medications: Generic Name Dose Route Start Last Admin Trade Name Freq PRN Reason Stop Dose Admin Acetaminophen 650 mg 05/07/20 23:32 Acetaminophen 325 Mg Tab PO Q4H PRN Pain MILD(1-3)/Fever >100.5/CLAIRE Amlodipine Besylate 10 mg 05/08/20 10:00 05/09/20 14:06 Amlodipine 10 Mg Tab PO 10 mg QDAY ARLETH Administration Hydralazine HCl 100 mg 05/08/20 08:00 05/09/20 20:50 Hydralazine 100 Mg Tab PO 100 mg TID ARLETH Administration Hydralazine HCl 10 mg 05/08/20 14:02 05/09/20 05:45 Hydralazine 20 Mg/1 Ml Inj IV 10 mg Q4HR PRN Administration Hypertension Hydromorphone HCl 0.5 mg 05/07/20 23:32 05/09/20 20:49 Hydromorphone 1 Mg/1 Ml Inj IV 0.5 mg Q3H PRN Administration Pain , Severe (7-10) Ampicillin Sodium/Sulbactam Sodium 1.5 gm in 50 mls @ 100 mls/hr 05/08/20 02:00 05/09/20 20:50 Unasyn/Ns 1.5 Gm/50 Ml IV 100 mls/hr Q6H [facility] Administration Protocol Insulin Human Lispro 0 unit 05/08/20 07:30 05/09/20 23:06 Insulin Lispro 100 Unit/Ml Vial 3 Ml SUB-Q Not Given ACHS [facility] Protocol Metoprolol Tartrate 75 mg 05/07/20 23:45 05/09/20 23:10 Metoprolol Tartrate 25 Mg Tab PO 75 mg BID ARLETH Administration Ondansetron HCl 4 mg 05/07/20 23:32 05/08/20 21:32 Ondansetron 4 Mg/2 Ml Inj IV 4 mg Q8H PRN Administration Nausea And Vomiting Oxycodone/Acetaminophen 1 tab 05/07/20 23:32 05/09/20 19:16 Oxycodone /Acetaminophen 5-325mg Tab PO 1 tab Q6H PRN Administration Pain, Moderate (4-6) Sodium Chloride 10 ml 05/08/20 10:00 05/09/20 23:09 Sodium Chloride 0.9% 10 Ml Flush Syringe IV 10 ml BID ARLETH Administration Sodium Chloride 10 ml 05/07/20 23:32 Sodium Chloride 0.9% 10 Ml Flush Syringe IV PRN PRN LINE FLUSH Warfarin Sodium 7.5 mg 05/09/20 17:00 05/09/20 16:10 Warfarin 7.5 Mg Tab PO 7.5 mg DAILY@1700 [facility] Administration Protocol
[2020-05-10] MEDS: AMPICILLIN/SULBACTA 1.5GM/50ML 1.5 GM/50 ML BAG IV SCH ×2 (02:26→09:22)
[2020-05-10] MEDS: HYDROmorphone 1 MG/1 ML INJ IV PRN ×7 (02:29→21:34)
[2020-05-10 06:20] LABS: INR 0.94 (0.87-1.13)
[2020-05-10] MEDS: INSULIN LISPRO 100 UNIT/ML VIAL 3 mL SUB-Q SCH ×4 (09:15→21:36)
[2020-05-10] MEDS: METOPROLOL TARTRATE 25 MG TAB PO SCH ×2 (09:21→21:34)
[2020-05-10] MEDS: hydrALAZINE 100 MG TAB PO SCH ×3 (09:21→20:49)
--- NOTE | 2020-05-10 12:18 | Progress Note ---
Assessment and Plan Assessment and plan: 29-year-old female with history of diabetes and hypertension comes in for right foot infection. Patient has been allergy of perforating ulcer on the right foot on the heel which is improved over the last 1 year. Now it is a 1 cm circular dark looking ulcer with a surrounding bleb and swelling of the feet. No fever or chills. Patient has not been taking her blood pressure medication for 2 weeks. In November 2019 she was found to have an abscess and signs of osteomyelitis. Patient says the the ulcer on the right foot heel is nearly healed and showed me pictures from 1 year ago to now it used to be a 3 cm ulcer which has come down to 1 cm but the ulcer is covered with eschar and not healed completely. It is a 1 cm x 1 cm ulcer. There is a small bleb adjacent to the ulcer near the fourth toe of the right foot. No coronavirus exposure. Patient is on Coumadin for anticoagulation. 05/09: Continue supportive care. Awaiting ortho input. Continue abx. 05/10: Continue supportive care, ID noted, calling surgery again. continue antibiotics (1) Cellulitis of right foot Current Visit: Yes Status: Acute Plan to address problem: Patient initiated on Unasyn IV and vancomycin IV Wound care consult requested ID consulted Surgery consulted to evaluate for possible debridement. (2) Hypertensive urgency, malignant Current Visit: No Status: Acute Plan to address problem: Blood pressure medications initiated and IV hydralazine 10 mg every 3 hours as needed (3) T2DM (type 2 diabetes mellitus) Current Visit: Yes Status: Chronic Qualifiers: Diabetes mellitus halfway insulin use: unspecified halfway insulin use status Plan to address problem: Coverage and check hemoglobin A1c Initiated on insulin or oral hypoglycemics ending her blood sugar range (4) Chronic osteomyelitis of right foot Current Visit: Yes Status: Chronic Plan to address problem: Patient has osteomyelitis of the distal end of the third metatarsal We will get orthopedic consult will also get ID consult (5) Anemia Current Visit: No Status: Chronic Qualifiers: Anemia type: due to chronic kidney disease Qualified Code(s): D64.9 - Anemia, unspecified Plan to address problem: Anemia work-up (6) Acute kidney injury Current Visit: No Status: Acute Plan to address problem: IV fluids for now Nephrology consult (7) DVT prophylaxis Current Visit: No Status: Acute Plan to address problem: On Coumadin and GI prophylaxis History Interval history: Patient seen and examined, no new complaints, no fever reported overnight Hospitalist Physical - Physical exam Narrative exam: General appearance: Present: no acute distress, well-nourished - EENT Eyes: Present: PERRL ENT: hearing intact, clear oral mucosa - Neck Neck: Present: supple, normal ROM - Respiratory Respiratory effort: normal Respiratory: bilateral: CTA - Cardiovascular Heart rate: 78 Rhythm: regular Heart Sounds: Present: S1 & S2. Absent: rub, click - Extremities Extremities: no ischemia, pulses intact, pulses symmetrical, No edema, abnormal (Right foot ulcer on the heel just adjacent to the third and fourth toes about 2 inches away. And there is a small blood the other third and fourth toe of the right foot.) Extremity abnormal: other (As above) Peripheral Pulses: within normal limits - Abdominal General gastrointestinal: Present: soft, non-tender, non-distended, normal bowel sounds Female genitourinary: Present: normal - Rectal Rectal Exam: deferred - Integumentary Integumentary: Present: clear, warm, dry - Musculoskeletal Musculoskeletal: gait normal, strength equal bilaterally - Psychiatric Psychiatric: appropriate mood/affect, intact judgment & insight - Neurologic Neurologic: CNII-XII intact, moves all extremities - Allied Health Allied health notes reviewed: nursing, case management - Constitutional Vitals: Temp Pulse Resp BP Pulse Ox 98.9 F 83 18 160/86 97 05/10/20 11:22 05/10/20 11:22 05/10/20 11:22 05/10/20 11:22 05/10/20 11:22 General appearance: Present: no acute distress, well-nourished Results - Labs CBC & Chem 7: 05/08/20 05:52 05/09/20 05:33 Labs: Laboratory Last Values WBC 13.5 K/mm3 (4.5-11.0) H 05/08/20 05:52 RBC 3.81 M/mm3 (3.65-5.03) 05/08/20 05:52 Hgb 8.7 gm/dl (10.1-14.3) L 05/08/20 05:52 Hct 27.6 % (30.3-42.9) L 05/08/20 05:52 MCV 73 fl (79-97) L 05/08/20 05:52 MCH 23 pg (28-32) L 05/08/20 05:52 MCHC 31 % (30-34) 05/08/20 05:52 RDW 16.6 % (13.2-15.2) H 05/08/20 05:52 Plt Count 395 K/mm3 (140-440) 05/08/20 05:52 Lymph % (Auto) 14.8 % (13.4-35.0) 05/08/20 05:52 [place] % (Auto) 8.5 % (0.0-7.3) H 05/08/20 05:52 Eos % (Auto) 1.7 % (0.0-4.3) 05/08/20 05:52 Baso % (Auto) 0.9 % (0.0-1.8) 05/08/20 05:52 Lymph # (Auto) 2.0 K/mm3 (1.2-5.4) 05/08/20 05:52 [place] # (Auto) 1.2 K/mm3 (0.0-0.8) H 05/08/20 05:52 Eos # (Auto) 0.2 K/mm3 (0.0-0.4) 05/08/20 05:52 Baso # (Auto) 0.1 K/mm3 (0.0-0.1) 05/08/20 05:52 Seg Neutrophils % 74.1 % (40.0-70.0) H 05/08/20 05:52 Seg Neutrophils # 10.0 K/mm3 (1.8-7.7) H 05/08/20 05:52 PT 12.4 Sec. (12.2-14.9) 05/10/20 05:18 INR 0.94 (0.87-1.13) 05/10/20 05:18 Sodium 135 mmol/L (137-145) L 05/09/20 05:33 Potassium 4.5 mmol/L (3.6-5.0) 05/09/20 05:33 Chloride 105.8 mmol/L (98-107) 05/09/20 05:33 Carbon Dioxide 20 mmol/L (22-30) L 05/09/20 05:33 Anion Gap 14 mmol/L 05/09/20 05:33 BUN 48 mg/dL (7-17) H 05/09/20 05:33 Creatinine 3.7 mg/dL (0.6-1.2) H 05/09/20 05:33 Estimated GFR 17 ml/min 05/09/20 05:33 BUN/Creatinine Ratio 13 % 05/09/20 05:33 Glucose 132 mg/dL (65-100) H 05/09/20 05:33 POC Glucose 143 mg/dL (70-105) H 05/10/20 11:22 Hemoglobin A1c 6.5 % (4-6) H 05/08/20 05:52 Lactic Acid 0.60 mmol/L (0.7-2.0) L 05/07/20 15:05 Calcium 8.4 mg/dL (8.4-10.2) 05/09/20 05:33 Iron 32 ug/dL (37-170) L 05/08/20 15:07 TIBC 208 mcg/dL (250-450) L 05/08/20 15:07 % Saturation 15.38 % 05/08/20 15:07 Transferrin 164 mg/dl (192-382) L 05/08/20 15:07 Total Bilirubin < 0.20 mg/dL (0.1-1.2) 05/08/20 05:52 AST 16 units/L (5-40) 05/08/20 05:52 ALT 17 units/L (7-56) 05/08/20 05:52 Alkaline Phosphatase 109 units/L (35-129) 05/08/20 05:52 Total Protein 7.7 g/dL (6.3-8.2) 05/08/20 05:52 Albumin 3.3 g/dL (3.9-5) L 05/08/20 05:52 Albumin/Globulin Ratio 0.8 % 05/08/20 05:52 Vitamin B12 1265 pg/mL (211-911) H 05/08/20 15:07 Urine Color Straw (Yellow) 05/08/20 07:30 Urine Turbidity Clear (Clear) 05/08/20 07:30 Urine pH 5.0 (5.0-7.0) 05/08/20 07:30 Ur Specific [place] 1.009 (1.003-1.030) 05/08/20 07:30 Urine Protein 100 mg/dl mg/dL (Negative) 05/08/20 07:30 Urine Glucose (UA) 50 mg/dL (Negative) 05/08/20 07:30 Urine Ketones Neg mg/dL (Negative) 05/08/20 07:30 Urine Blood Sm (Negative) 05/08/20 07:30 Urine Nitrite Neg (Negative) 05/08/20 07:30 Urine Bilirubin Neg (Negative) 05/08/20 07:30 Urine Urobilinogen < 2.0 mg/dL (<2.0) 05/08/20 07:30 Ur Leukocyte Esterase Neg (Negative) 05/08/20 07:30 Urine WBC (Auto) 2.0 /HPF (0.0-6.0) 05/08/20 07:30 Urine RBC (Auto) 3.0 /HPF (0.0-6.0) 05/08/20 07:30 U Epithel Cells (Auto) 3.0 /HPF (0-13.0) 05/08/20 07:30 Urine Bacteria (Auto) 1+ /HPF (Negative) 05/08/20 07:30 Urine Creatinine 66.5 mg/dL (0.1-20.0) H 05/08/20 07:30 Protein/Creatinin Ratio 1.44 05/08/20 07:30 Urine Sodium 29 mmol/L 05/08/20 07:30 Urine Total Protein 96 mg/dL (5-11.8) H 05/08/20 07:30 Random Vancomycin 16.2 ug/mL (0-40.0) 05/09/20 05:33 Irwin/IV: Voiding Method Toilet IV Catheter Type [Left Forearm INT / Saline Lock ] IV Catheter Type [Left Peripheral IV Antecubital] Active Medications - Current Medications Current Medications: Generic Name Dose Route Start Last Admin Trade Name Freq PRN Reason Stop Dose Admin Acetaminophen 650 mg 05/07/20 23:32 Acetaminophen 325 Mg Tab PO Q4H PRN Pain MILD(1-3)/Fever >100.5/CLAIRE Amlodipine Besylate 10 mg 05/08/20 10:00 05/09/20 14:06 Amlodipine 10 Mg Tab PO 10 mg QDAY ARLE[facility] Administration Hydralazine HCl 100 mg 05/08/20 08:00 05/10/20 09:21 Hydralazine 100 Mg Tab PO 100 mg TID ARLETH Administration Hydralazine HCl 10 mg 05/08/20 14:02 05/09/20 05:45 Hydralazine 20 Mg/1 Ml Inj IV 10 mg Q4HR PRN Administration Hypertension Hydromorphone HCl 0.5 mg 05/07/20 23:32 05/10/20 09:30 Hydromorphone 1 Mg/1 Ml Inj IV 0.5 mg Q3H PRN Administration Pain , Severe (7-10) Ampicillin Sodium/Sulbactam Sodium 3 gm in 100 mls @ 200 mls/hr 05/10/20 14:00 Unasyn/Ns 3 Gm/100 Ml IV Q8HR [facility] Insulin Human Lispro 0 unit 05/08/20 07:30 05/10/20 09:15 Insulin Lispro 100 Unit/Ml Vial 3 Ml SUB-Q Not Given ACHS [facility] Protocol Metoprolol Tartrate 75 mg 05/07/20 23:45 05/10/20 09:21 Metoprolol Tartrate 25 Mg Tab PO 75 mg BID [facility] Administration Ondansetron HCl 4 mg 05/07/20 23:32 05/08/20 21:32 Ondansetron 4 Mg/2 Ml Inj IV 4 mg Q8H PRN Administration Nausea And Vomiting Oxycodone/Acetaminophen 1 tab 05/07/20 23:32 05/09/20 19:16 Oxycodone /Acetaminophen 5-325mg Tab PO 1 tab Q6H PRN Administration Pain, Moderate (4-6) Sodium Chloride 10 ml 05/08/20 10:00 05/09/20 23:09 Sodium Chloride 0.9% 10 Ml Flush Syringe IV 10 ml BID ARLETH Administration Sodium Chloride 10 ml 05/07/20 23:32 Sodium Chloride 0.9% 10 Ml Flush Syringe IV PRN PRN LINE FLUSH Warfarin Sodium 7.5 mg 05/09/20 17:00 05/09/20 16:10 Warfarin 7.5 Mg Tab PO 7.5 mg DAILY@1700 [facility] Administration Protocol Nutrition/Malnutrition Assess - Dietary Evaluation Nutrition/Malnutrition Findings: Nutrition Notes Start: 05/09/20 12:48 Freq: Status: Active Protocol: Document 05/09/20 12:48 NHALL (Rec: 05/09/20 12:51 NHALL [id number]) Nutrition Notes Need for Assessment generated from: Education Current Diet Consistent CHO Pertinent Medications Coumadin Subjective/Other Information Pt reports first time taking coumadin. DNI education provided to her via phone at 12:47. Burn Absent Trauma Absent Minimum of two criteria No #1 Nutrition Diagnosis Food and nutrition-related knowledge deficit Etiology first-time taking coumadin As Evidenced by Signs and Symptoms pt unaware of foods containing vitamin K Nutrition Intervention Teaching Recipient Patient Learning Readiness Good Teaching Methods Discussion Response to Teaching Verbalize understanding Barriers to Learning No Barriers RD phone number provided Yes Patient aware of follow up options Yes Goal #1 Limit intake of high vitamin K foods while taking coumadin Anticipated Discharge Needs: Low vitamin K diet if coumadin prescribed for home use
[2020-05-10] MEDS: amLODIPine 10 MG TAB PO SCH (13:00)
[2020-05-10] MEDS ORDERED: AMPICILLIN/SULBACTA 3GM/100ML 3 GM/100 ML BAG IV SCH (14:00)
--- NOTE | 2020-05-10 14:02 | Progress Note ---
Assessment and Plan 1. Acute kidney injury vs progressive CKD: Suspected Acute kidney injury superimposed on CKD stage 4. 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 Prior Creatinine was around 3 in November 2019. Most likely progressive CKD in the setting of poorly controlled DM / HTN. Monitor renal function. Creatinine 4.2 from 3.7 from 3.5. Renal prognosis is guarded. Avoid nephrotoxic agents. Meds dosage based on GFR. 2. FEN: Mild metabolic acidosis, monitor. Monitor lytes and volume status. 3. 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 Abx per ID. Seen by Surgery. 4. Diabetes mellitus type 1: Monitor BG closely. 5. Uncontrolled Hypertension: Monitor BP. Continue current meds. 6. Microcytic Anemia, POA: Monitor Hb. Examination: The patient was not examined today. However the examination findings from other providers noted. The current and previous medical records are reviewed in detail as are laboratory and imaging data reviewed when appropriate. Medications being given are also reviewed. In addition the case has been discussed with the attending hospitalist and the nurse when needed. New renal recommendations as above. Subjective Date of service: 05/10/20 Objective - Vital Signs Vital signs: Vital Signs - 12hr 05/10/20 05/10/20 05/10/20 05:32 07:24 09:21 Temperature 97.9 F 98.1 F Pulse Rate 82 77 77 Respiratory 18 18 Rate Blood Pressure 148/76 153/80 153/80 O2 Sat by Pulse 96 96 Oximetry 05/10/20 05/10/20 11:22 13:00 Temperature 98.9 F Pulse Rate 83 83 Respiratory 18 Rate Blood Pressure 160/86 160/86 O2 Sat by Pulse 97 Oximetry - Lab 05/11/20 05:29 05/11/20 05:29 Most recent lab results Calcium 8.4 mg/dL (8.4-10.2) 05/09/20 05:33 Urine Creatinine 66.5 mg/dL (0.1-20.0) H 05/08/20 07:30 Urine Sodium 29 mmol/L 05/08/20 07:30 Urine Total Protein 96 mg/dL (5-11.8) H 05/08/20 07:30 Medications & Allergies - Medications Allergies/Adverse Reactions: Allergies No Known Allergies Allergy (Unverified 08/24/19 12:03) Home Medications: Home Medications Medication Instructions Recorded Confirmed Last Taken Type Prednisone [predniSONE 10 mg 10 mg PO .TAPER #52 tab.ds.pk 09/20/19 11/22/19 Unknown Rx (6-Day Pack, 21 Tabs)] Acetaminophen [Acetaminophen TAB] 650 mg PO Q4H PRN 30 Days #30 11/26/19 Unknown Rx tablet Metoprolol [Lopressor TAB] 75 mg PO BID 30 Days #60 tablet 11/26/19 Unknown Rx Warfarin Sodium [Coumadin] 5 mg PO DAILY 15 Days #15 tab 11/26/19 Unknown Rx amLODIPine 10 mg PO QDAY tablet 11/26/19 Unknown Rx hydrALAZINE [Apresoline TAB] 100 mg PO TID 30 Days #90 tab 11/26/19 Unknown Rx Active Medications: Generic Name Dose Route Start Last Admin Trade Name Freq PRN Reason Stop Dose Admin Acetaminophen 650 mg 05/07/20 23:32 Acetaminophen 325 Mg Tab PO Q4H PRN Pain MILD(1-3)/Fever >100.5/CLAIRE Amlodipine Besylate 10 mg 05/08/20 10:00 05/10/20 13:00 Amlodipine 10 Mg Tab PO 10 mg QDAY [facility] Administration Hydralazine HCl 100 mg 05/08/20 08:00 05/10/20 13:56 Hydralazine 100 Mg Tab PO 100 mg TID ARLETH Administration Hydralazine HCl 10 mg 05/08/20 14:02 05/09/20 05:45 Hydralazine 20 Mg/1 Ml Inj IV 10 mg Q4HR PRN Administration Hypertension Hydromorphone HCl 0.5 mg 05/07/20 23:32 05/10/20 09:30 Hydromorphone 1 Mg/1 Ml Inj IV 0.5 mg Q3H PRN Administration Pain , Severe (7-10) Ampicillin Sodium/Sulbactam Sodium 3 gm in 100 mls @ 200 mls/hr 05/10/20 14:00 Unasyn/Ns 3 Gm/100 Ml IV Q8HR [facility] Insulin Human Lispro 0 unit 05/08/20 07:30 05/10/20 11:30 Insulin Lispro 100 Unit/Ml Vial 3 Ml SUB-Q Not Given ACHS [facility] Protocol Metoprolol Tartrate 75 mg 05/07/20 23:45 05/10/20 09:21 Metoprolol Tartrate 25 Mg Tab PO 75 mg BID ARLETH Administration Ondansetron HCl 4 mg 05/07/20 23:32 05/08/20 21:32 Ondansetron 4 Mg/2 Ml Inj IV 4 mg Q8H PRN Administration Nausea And Vomiting Oxycodone/Acetaminophen 1 tab 05/07/20 23:32 05/09/20 19:16 Oxycodone /Acetaminophen 5-325mg Tab PO 1 tab Q6H PRN Administration Pain, Moderate (4-6) Sodium Chloride 10 ml 05/08/20 10:00 05/09/20 23:09 Sodium Chloride 0.9% 10 Ml Flush Syringe IV 10 ml BID [facility]LE[facility] Administration Sodium Chloride 10 ml 05/07/20 23:32 Sodium Chloride 0.9% 10 Ml Flush Syringe IV PRN PRN LINE FLUSH Warfarin Sodium 7.5 mg 05/09/20 17:00 05/09/20 16:10 Warfarin 7.5 Mg Tab PO 7.5 mg DAILY@1700 [facility] Administration Protocol
--- NOTE | 2020-05-10 14:06 | Progress Note ---
Assessment and Plan Cultures: None A/P: 29-year-old female past medical history diabetes, morbid obesity admitted with right foot eschar and osteomyelitis #Right third metatarsal osteomyelitis: Continue antibiotics for now, ultimate antibiotic plan will depend on surgical outlook. She was seen by me in December of this year and was given 6 weeks of cefepime due to Pseudomonas and GBS in her cultures at that time. #DM2: tight glycemic control for best wound outcomes #Morbid obesity: BMI = 46 Recs: -Given prior cultures with PsA and GBS will change to Zosyn for now -If debridement or amputation occurs please obtain cultures and pathology to guide treatment and duration -Follow up gen surg and ortho consults. -Ordered CRP for AM. Thank you for the consult, we will continue to follow. Treasure Barnes MD [facility] O: [phone] F: [phone] Subjective Date of service: 05/10/20 Interval history: She is afebrile. No acute changes. Objective - Exam Narrative Exam: Physical Exam: Constitutional: Alert, cooperative. No acute distress Head, Ears, Nose: Normocephalic, atraumatic. Eyes: Conjunctivae/corneas clear. No icterus. No ptosis. Neck: Supple, no meningeal signs Oral: dentition fair, no thrush Cardiovascular: S1, S2 normal. Respiratory: Good air entry, clear to auscultation bilaterally GI: Soft, non-tender; bowel sounds normal. No peritoneal signs. Musculoskeletal: Right foot eschar overlying third metatarsal head Skin: No rash or abscess Hem/Lymphatic: No palpable cervical or supraclavicular nodes. No lymphangitis Psych: Mood ok. Affect normal Neurological: Awake, alert, oriented. No gross abnormality - Constitutional Vitals: Vital Signs Temp Pulse Resp BP Pulse Ox 98.9 F 83 18 160/86 97 05/10/20 11:22 05/10/20 13:00 05/10/20 11:22 05/10/20 13:00 05/10/20 11:22 Temperature -Last 24 Hours Temperature 98.9 F Temperature 98.1 F Temperature 97.9 F Temperature 97.9 F Temperature 98.1 F Temperature 98.4 F - Labs CBC & Chem 7: 05/08/20 05:52 05/09/20 05:33 Labs: Abnormal lab results 05/09/20 05/09/20 05/10/20 Range/Units 16:11 21:53 07:26 POC Glucose 114 H 131 H 112 H (70-105) mg/dL 05/10/20 Range/Units 11:22 POC Glucose 143 H (70-105) mg/dL
[2020-05-10] MEDS: PIPERACILLIN/TAZOBACTAM 3.375 3.375 GM/50 ML BAG IV SCH ×2 (15:34→23:30)
--- NOTE | 2020-05-10 16:55 | Consultation ---
History of Present Illness Consult date: 05/10/20 - History of present illness History of present illness: 29 yo diabetic female with a long h/o a right plantar ulcer. Past History Past Medical History: diabetes, hypertension Medications and Allergies Allergies Allergy/AdvReac Type Severity Reaction Status Date / Time No Known Allergies Allergy Unverified 08/24/19 12:03 Home Medications Medication Instructions Recorded Confirmed Last Taken Type Prednisone [predniSONE 10 mg 10 mg PO .TAPER #52 tab.ds.pk 09/20/19 11/22/19 Unknown Rx (6-Day Pack, 21 Tabs)] Acetaminophen [Acetaminophen TAB] 650 mg PO Q4H PRN 30 Days #30 11/26/19 Unknown Rx tablet Metoprolol [Lopressor TAB] 75 mg PO BID 30 Days #60 tablet 11/26/19 Unknown Rx Warfarin Sodium [Coumadin] 5 mg PO DAILY 15 Days #15 tab 11/26/19 Unknown Rx amLODIPine 10 mg PO QDAY tablet 11/26/19 Unknown Rx hydrALAZINE [Apresoline TAB] 100 mg PO TID 30 Days #90 tab 11/26/19 Unknown Rx Active Meds: Active Medications Acetaminophen (Acetaminophen 325 Mg Tab) 650 mg PO Q4H PRN PRN Reason: Pain MILD(1-3)/Fever >100.5/CLAIRE Amlodipine Besylate (Amlodipine 10 Mg Tab) 10 mg PO QDAY [facility] Last Admin: 05/10/20 13:00 Dose: 10 mg Documented by: Hydralazine HCl (Hydralazine 100 Mg Tab) 100 mg PO TID [facility] Last Admin: 05/10/20 13:56 Dose: 100 mg Documented by: Hydralazine HCl (Hydralazine 20 Mg/1 Ml Inj) 10 mg IV Q4HR PRN PRN Reason: Hypertension Last Admin: 05/09/20 05:45 Dose: 10 mg Documented by: Hydromorphone HCl (Hydromorphone 1 Mg/1 Ml Inj) 0.5 mg IV Q3H PRN PRN Reason: Pain , Severe (7-10) Last Admin: 05/10/20 15:36 Dose: 0.5 mg Documented by: Piperacillin Sod/Tazobactam Sod (Zosyn/Ns 3.375gm/50ml) 3.375 gm in 50 mls @ 100 mls/hr IV Q8H [facility]; Protocol Last Admin: 05/10/20 15:34 Dose: 100 mls/hr Documented by: Insulin Human Lispro (Insulin Lispro 100 Unit/Ml Vial 3 Ml) 0 unit SUB-Q ACHS [facility]; Protocol Last Admin: 05/10/20 11:30 Dose: Not Given Documented by: Metoprolol Tartrate (Metoprolol Tartrate 25 Mg Tab) 100 mg PO BID [facility] Ondansetron HCl (Ondansetron 4 Mg/2 Ml Inj) 4 mg IV Q8H PRN PRN Reason: Nausea And Vomiting Last Admin: 05/08/20 21:32 Dose: 4 mg Documented by: Oxycodone/Acetaminophen (Oxycodone /Acetaminophen 5-325mg Tab) 1 tab PO Q6H PRN PRN Reason: Pain, Moderate (4-6) Last Admin: 05/09/20 19:16 Dose: 1 tab Documented by: Sodium Chloride (Sodium Chloride 0.9% 10 Ml Flush Syringe) 10 ml IV BID [facility] Last Admin: 05/10/20 15:40 Dose: 10 ml Documented by: Sodium Chloride (Sodium Chloride 0.9% 10 Ml Flush Syringe) 10 ml IV PRN PRN PRN Reason: LINE FLUSH Warfarin Sodium (Warfarin 7.5 Mg Tab) 7.5 mg PO DAILY@1700 [facility]; Protocol Last Admin: 05/09/20 16:10 Dose: 7.5 mg Documented by: Review of Systems All systems: negative (none) Exam Vital Signs Temp Pulse Resp BP Pulse Ox 97.9 F 100 H 16 218/121 100 05/07/20 14:19 05/07/20 14:19 05/07/20 14:19 05/07/20 14:19 05/07/20 14:19 - General physical appearance Positive: well developed, well nourished, no distress - Eyes Positive: PERRL, normal occular movement - ENT Positive: normal pinna, normal nares, normal mucosa, no hearing loss, no congestion - Neck Positive: no masses, no bruits, trachea midline, no venous distension - Respiratory Positive: normal expansion, normal respiratory effort, clear to auscultation - Cardiovascular Rhythm: regular Heart Sounds: Present: S1 & S2. Absent: rub, click - Extremities Extremities: no ischemia, pulses symmetrical, No edema - Abdomen Abdomen: Present: soft, bowel sounds normal. Absent: tender, distended Hernia: none - Genitourinary Female Genitourinary: normal - Integumentary no rash, no growths, no abnormal pigmentation, other (There is a 2 cm thick callous on the plantar aspect of her right foot at the level of the 3rd metatarsal head. There is no drainage, fluctuance or cellulitis. Right DP pulse is 1+.) - Neurologic Neurologic: alert and oriented to time, place and person, motor strength and sensation are grossly intact - Musculoskeletal normal gait, normal posture - Psychiatric Psychiatric: appropriate mood/affect, intact judgment & insight Results - Labs 05/08/20 05:52 05/09/20 05:33 Abnormal lab results 05/09/20 05/10/20 05/10/20 Range/Units 21:53 07:26 11:22 POC Glucose 131 H 112 H 143 H (70-105) mg/dL 05/10/20 Range/Units 16:26 POC Glucose 109 H (70-105) mg/dL - Imaging Additional studies: X-ray of right foot was reviewed. Assessment and Plan - Patient Problems (1) Osteomyelitis of third toe of right foot Current Visit: No Status: Acute Plan to address problem: 1) MRI of right foot without contrast 2) Arterial dopplers of RLE 3) Pt will probably need a TMA of her right 3rd toe. I have texted Dr. Pineda to see if her Coumadin can be held.
[2020-05-10 17:26] LABS: Calcium 8.7 mg/dL (8.4-10.2)
[2020-05-10] MEDS: HEPARIN 5,000 UNIT/1 ML VIAL SUB-Q SCH (21:33)
[2020-05-11] MEDS: HYDROmorphone 1 MG/1 ML INJ IV PRN ×5 (04:25→22:30)
[2020-05-11 06:30] LABS: Hemoglobin 8.2 gm/dl (10.1-14.3); Mean Corpuscular HGB Conc 32 % (30-34); Mean Corpuscular Volume 73 fl (79-97); Platelet Count 332 K/mm3 (140-440); Red Blood Count 3.55 M/mm3 (3.65-5.03)
[2020-05-11 06:40] LABS: INR 1.13 (0.87-1.13)
[2020-05-11] MEDS: PIPERACILLIN/TAZOBACTAM 3.375 3.375 GM/50 ML BAG IV SCH ×2 (06:41→17:30)
[2020-05-11] MEDS: HEPARIN 5,000 UNIT/1 ML VIAL SUB-Q SCH ×3 (06:41→22:32)
[2020-05-11 06:52] LABS: Calcium 8.5 mg/dL (8.4-10.2)
--- NOTE | 2020-05-11 09:49 | Progress Note ---
Assessment and Plan 1. Acute kidney injury vs progressive CKD: Suspected Acute kidney injury superimposed on CKD stage 4. 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 Prior Creatinine was around 3 in November 2019. Most likely progressive CKD in the setting of poorly controlled DM / HTN. Renal US negative. Monitor renal function. Creatinine 4.2 from 4.2 from 3.7 from 3.5. Started on IV fluids. Renal prognosis is guarded. Avoid nephrotoxic agents. Meds dosage based on GFR. 2. FEN: Mild metabolic acidosis, PO Sodium bicarbonate, monitor. Monitor lytes and volume status. 3. 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 Abx per ID. Followed by Surgery. 4. Diabetes mellitus type 1: Monitor BG closely. 5. Uncontrolled Hypertension: Monitor BP. Continue current meds. 6. Microcytic Anemia, POA: Monitor Hb. Examination: The patient was not examined today. However the examination findings from other providers noted. The current and previous medical records are reviewed in [facility] as are laboratory and imaging data reviewed when appropriate. Medications being given are also reviewed. In addition the case has been discussed with the attending hospitalist and the nurse when needed. New renal recommendations as above. Subjective Date of service: 05/11/20 Objective - Vital Signs Vital signs: Vital Signs - 12hr 05/10/20 05/11/20 05/11/20 22:51 04:58 07:15 Temperature 98.0 F 97.5 F L 98.0 F Pulse Rate 78 72 77 Respiratory 18 18 20 Rate Blood Pressure 147/85 143/77 144/77 O2 Sat by Pulse 94 92 92 Oximetry 05/11/20 07:17 Temperature Pulse Rate Respiratory Rate Blood Pressure O2 Sat by Pulse 96 Oximetry - Lab 05/11/20 05:29 05/11/20 05:29 Most recent lab results Calcium 8.5 mg/dL (8.4-10.2) 05/11/20 05:29 Phosphorus 4.60 mg/dL (2.5-4.5) H 05/10/20 16:10 Urine Creatinine 66.5 mg/dL (0.1-20.0) H 05/08/20 07:30 Urine Sodium 29 mmol/L 05/08/20 07:30 Urine Total Protein 96 mg/dL (5-11.8) H 05/08/20 07:30 Medications & Allergies - Medications Allergies/Adverse Reactions: Allergies No Known Allergies Allergy (Unverified 08/24/19 12:03) Home Medications: Home Medications Medication Instructions Recorded Confirmed Last Taken Type Prednisone [predniSONE 10 mg 10 mg PO .TAPER #52 tab.ds.pk 09/20/19 11/22/19 Unk nown Rx (6-Day Pack, 21 Tabs)] Acetaminophen [Acetaminophen TAB] 650 mg PO Q4H PRN 30 Days #30 11/26/19 Unknown Rx tablet Metoprolol [Lopressor TAB] 75 mg PO BID 30 Days #60 tablet 11/26/19 Unknown Rx Warfarin Sodium [Coumadin] 5 mg PO DAILY 15 Days #15 tab 11/26/19 Unknown Rx amLODIPine 10 mg PO QDAY tablet 11/26/19 Unknown Rx hydrALAZINE [Apresoline TAB] 100 mg PO TID 30 Days #90 tab 11/26/19 Unknown Rx Active Medications: Generic Name Dose Route Start Last Admin Trade Name Freq PRN Reason Stop Dose Admin Acetaminophen 650 mg 05/07/20 23:32 Acetaminophen 325 Mg Tab PO Q4H PRN Pain MILD(1-3)/Fever >100.5/CLAIRE Amlodipine Besylate 10 mg 05/08/20 10:00 05/10/20 13:00 Amlodipine 10 Mg Tab PO 10 mg QDAY ARLETH Administration Heparin Sodium (Porcine) 5,000 unit 05/10/20 22:00 05/11/20 06:41 Heparin 5,000 Unit/1 Ml Vial SUB-Q 5,000 unit Q8HR ARLETH Administration Hydralazine HCl 100 mg 05/08/20 08:00 05/10/20 20:49 Hydralazine 100 Mg Tab PO 100 mg TID ARLETH Administration Hydralazine HCl 10 mg 05/08/20 14:02 05/09/20 05:45 Hydralazine 20 Mg/1 Ml Inj IV 10 mg Q4HR PRN Administration Hypertension Hydromorphone HCl 0.5 mg 05/07/20 23:32 05/11/20 08:37 Hydromorphone 1 Mg/1 Ml Inj IV 0.5 mg Q3H PRN Administration Pain , Severe (7-10) Piperacillin Sod/Tazobactam Sod 3.375 gm in 50 mls @ 100 mls/hr 05/10/20 15:00 05/11/20 06:41 Zosyn/Ns 3.375gm/50ml IV 100 mls/hr Q8H ARLETH Administration Protocol Insulin Human Lispro 0 unit 05/08/20 07:30 05/10/20 21:36 Insulin Lispro 100 Unit/Ml Vial 3 Ml SUB-Q Not Given ACHS [facility] Protocol Metoprolol Tartrate 100 mg 05/10/20 14:02 05/10/20 21:34 Metoprolol Tartrate 25 Mg Tab PO 100 mg BID ARLETH Administration Ondansetron HCl 4 mg 05/07/20 23:32 05/08/20 21:32 Ondansetron 4 Mg/2 Ml Inj IV 4 mg Q8H PRN Administration Nausea And Vomiting Oxycodone/Acetaminophen 1 tab 05/07/20 23:32 05/09/20 19:16 Oxycodone /Acetaminophen 5-325mg Tab PO 1 tab Q6H PRN Administration Pain, Moderate (4-6) Sodium Bicarbonate 650 mg 05/11/20 10:00 Sodium Bicarbonate 650 Mg Tab PO TID ARLETH Sodium Chloride 10 ml 05/08/20 10:00 05/10/20 21:35 Sodium Chloride 0.9% 10 Ml Flush Syringe IV 10 ml BID ARLETH Administration Sodium Chloride 10 ml 05/07/20 23:32 Sodium Chloride 0.9% 10 Ml Flush Syringe IV PRN PRN LINE FLUSH
--- NOTE | 2020-05-11 09:57 | Progress Note ---
Assessment and Plan Assessment and plan: 29-year-old female with history of diabetes and hypertension comes in for right foot infection. Patient has been allergy of perforating ulcer on the right foot on the heel which is improved over the last 1 year. Now it is a 1 cm circular dark looking ulcer with a surrounding bleb and swelling of the feet. No fever or chills. Patient has not been taking her blood pressure medication for 2 weeks. In November 2019 she was found to have an abscess and signs of osteomyelitis. Patient says the the ulcer on the right foot heel is nearly healed and showed me pictures from 1 year ago to now it used to be a 3 cm ulcer which has come down to 1 cm but the ulcer is covered with eschar and not healed completely. It is a 1 cm x 1 cm ulcer. There is a small bleb adjacent to the ulcer near the fourth toe of the right foot. No coronavirus exposure. Patient is on Coumadin for anticoagulation. 05/09: Continue supportive care. Awaiting ortho input. Continue abx. 05/10: Continue supportive care, ID noted, calling surgery again. continue antibiotics 05/11: Noted Osteomylitis. Continue supportive care, ID input noted, will start on Vancomycin. Renal input noted (1)Osteomylitis-Cellulitis of right foot Current Visit: Yes Status: Acute Plan to address problem: Patient initiated on Unasyn IV and vancomycin IV Wound care consult requested ID consulted Surgery consulted to evaluate for possible debridement. (2) Hypertensive urgency, malignant Current Visit: No Status: Acute Plan to address problem: Blood pressure medications initiated and IV hydralazine 10 mg every 3 hours as needed (3) T2DM (type 2 diabetes mellitus) Current Visit: Yes Status: Chronic Qualifiers: Diabetes mellitus jail insulin use: unspecified long term care administrator insulin use status Plan to address problem: Coverage and check hemoglobin A1c Initiated on insulin or oral hypoglycemics ending her blood sugar range (4) Chronic osteomyelitis of right foot Current Visit: Yes Status: Chronic Plan to address problem: Patient has osteomyelitis of the distal end of the third metatarsal We will get orthopedic consult will also get ID consult (5) Anemia Current Visit: No Status: Chronic Qualifiers: Anemia type: due to chronic kidney disease Qualified Code(s): D64.9 - Anemia, unspecified Plan to address problem: Anemia work-up (6) Acute kidney injury Current Visit: No Status: Acute Plan to address problem: IV fluids for now Nephrology consult (7) DVT prophylaxis Current Visit: No Status: Acute Plan to address problem: On Coumadin and GI prophylaxis History Interval history: Patient seen and examined, no new complaints, no fever reported overnight, Imaging studies concerning for osteomylitis. Hospitalist Physical - Physical exam Narrative exam: General appearance: Present: no acute distress, well-nourished - EENT Eyes: Present: PERRL ENT: hearing intact, clear oral mucosa - Neck Neck: Present: supple, normal ROM - Respiratory Respiratory effort: normal Respiratory: bilateral: CTA - Cardiovascular Heart rate: 78 Rhythm: regular Heart Sounds: Present: S1 & S2. Absent: rub, click - Extremities Extremities: no ischemia, pulses intact, pulses symmetrical, No edema, abnormal (Right foot ulcer on the heel just adjacent to the third and fourth toes about 2 inches away. And there is a small blood the other third and fourth toe of the right foot.) Extremity abnormal: other (As above) Peripheral Pulses: within normal limits - Abdominal General gastrointestinal: Present: soft, non-tender, non-distended, normal bowel sounds Female genitourinary: Present: normal - Rectal Rectal Exam: deferred - Integumentary Integumentary: Present: clear, warm, dry - Musculoskeletal Musculoskeletal: gait normal, strength equal bilaterally - Psychiatric Psychiatric: appropriate mood/affect, intact judgment & insight - Neurologic Neurologic: CNII-XII intact, moves all extremities - Allied Health Allied health notes reviewed: nursing, case management - Constitutional Vitals: Temp Pulse Resp BP Pulse Ox 98.0 F 77 20 144/77 96 05/11/20 07:15 05/11/20 07:15 05/11/20 07:15 05/11/20 07:15 05/11/20 07:17 General appearance: Present: no acute distress, well-nourished Results - Labs CBC & Chem 7: 05/12/20 05:21 05/12/20 05:21 Labs: Laboratory Last Values WBC 11.4 K/mm3 (4.5-11.0) H 05/11/20 05:29 RBC 3.55 M/mm3 (3.65-5.03) L 05/11/20 05:29 Hgb 8.2 gm/dl (10.1-14.3) L 05/11/20 05:29 Hct 26.0 % (30.3-42.9) L 05/11/20 05:29 MCV 73 fl (79-97) L 05/11/20 05:29 MCH 23 pg (28-32) L 05/11/20 05:29 MCHC 32 % (30-34) 05/11/20 05:29 RDW 17.0 % (13.2-15.2) H 05/11/20 05:29 Plt Count 332 K/mm3 (140-440) 05/11/20 05:29 Lymph % (Auto) 14.8 % (13.4-35.0) 05/08/20 05:52 [place] % (Auto) 8.5 % (0.0-7.3) H 05/08/20 05:52 Eos % (Auto) 1.7 % (0.0-4.3) 05/08/20 05:52 Baso % (Auto) 0.9 % (0.0-1.8) 05/08/20 05:52 Lymph # (Auto) 2.0 K/mm3 (1.2-5.4) 05/08/20 05:52 [place] # (Auto) 1.2 K/mm3 (0.0-0.8) H 05/08/20 05:52 Eos # (Auto) 0.2 K/mm3 (0.0-0.4) 05/08/20 05:52 Baso # (Auto) 0.1 K/mm3 (0.0-0.1) 05/08/20 05:52 Seg Neutrophils % 74.1 % (40.0-70.0) H 05/08/20 05:52 Seg Neutrophils # 10.0 K/mm3 (1.8-7.7) H 05/08/20 05:52 PT 14.3 Sec. (12.2-14.9) 05/11/20 05:29 INR 1.13 (0.87-1.13) 05/11/20 05:29 Sodium 133 mmol/L (137-145) L 05/11/20 05:29 Potassium 4.4 mmol/L (3.6-5.0) 05/11/20 05:29 Chloride 103.9 mmol/L (98-107) 05/11/20 05:29 Carbon Dioxide 17 mmol/L (22-30) L 05/11/20 05:29 Anion Gap 17 mmol/L 05/11/20 05:29 BUN 50 mg/dL (7-17) H 05/11/20 05:29 Creatinine 4.2 mg/dL (0.6-1.2) H 05/11/20 05:29 Estimated GFR 15 ml/min 05/11/20 05:29 BUN/Creatinine Ratio 12 % 05/11/20 05:29 Glucose 142 mg/dL (65-100) H 05/11/20 05:29 POC Glucose 130 mg/dL (70-105) H 05/11/20 07:14 Hemoglobin A1c 6.5 % (4-6) H 05/08/20 05:52 Lactic Acid 0.60 mmol/L (0.7-2.0) L 05/07/20 15:05 Calcium 8.5 mg/dL (8.4-10.2) 05/11/20 05:29 Phosphorus 4.60 mg/dL (2.5-4.5) H 05/10/20 16:10 Iron 32 ug/dL (37-170) L 05/08/20 15:07 TIBC 208 mcg/dL (250-450) L 05/08/20 15:07 % Saturation 15.38 % 05/08/20 15:07 Transferrin 164 mg/dl (192-382) L 05/08/20 15:07 Total Bilirubin < 0.20 mg/dL (0.1-1.2) 05/08/20 05:52 AST 16 units/L (5-40) 05/08/20 05:52 ALT 17 units/L (7-56) 05/08/20 05:52 Alkaline Phosphatase 109 units/L (35-129) 05/08/20 05:52 C-Reactive Protein 1.20 mg/dL (0.00-1.30) 05/11/20 05:29 Total Protein 7.7 g/dL (6.3-8.2) 05/08/20 05:52 Albumin 3.3 g/dL (3.9-5) L 05/08/20 05:52 Albumin/Globulin Ratio 0.8 % 05/08/20 05:52 Vitamin B12 1265 pg/mL (211-911) H 05/08/20 15:07 Urine Color Straw (Yellow) 05/08/20 07:30 Urine Turbidity Clear (Clear) 05/08/20 07:30 Urine pH 5.0 (5.0-7.0) 05/08/20 07:30 Ur Specific Batson 1.009 (1.003-1.030) 05/08/20 07:30 Urine Protein 100 mg/dl mg/dL (Negative) 05/08/20 07:30 Urine Glucose (UA) 50 mg/dL (Negative) 05/08/20 07:30 Urine Ketones Neg mg/dL (Negative) 05/08/20 07:30 Urine Blood Sm (Negative) 05/08/20 07:30 Urine Nitrite Neg (Negative) 05/08/20 07:30 Urine Bilirubin Neg (Negative) 05/08/20 07:30 Urine Urobilinogen < 2.0 mg/dL (<2.0) 05/08/20 07:30 Ur Leukocyte Esterase Neg (Negative) 05/08/20 07:30 Urine WBC (Auto) 2.0 /HPF (0.0-6.0) 05/08/20 07:30 Urine RBC (Auto) 3.0 /HPF (0.0-6.0) 05/08/20 07:30 U Epithel Cells (Auto) 3.0 /HPF (0-13.0) 05/08/20 07:30 Urine Bacteria (Auto) 1+ /HPF (Negative) 05/08/20 07:30 Urine Creatinine 66.5 mg/dL (0.1-20.0) H 05/08/20 07:30 Protein/Creatinin Ratio 1.44 05/08/20 07:30 Urine Sodium 29 mmol/L 05/08/20 07:30 Urine Total Protein 96 mg/dL (5-11.8) H 05/08/20 07:30 Random Vancomycin 16.2 ug/mL (0-40.0) 05/09/20 05:33 Irwin/IV: Voiding Method Toilet IV Catheter Type [Left Forearm INT / Saline Lock ] IV Catheter Type [Left Peripheral IV Antecubital] Active Medications - Current Medications Current Medications: Generic Name Dose Route Start Last Admin Trade Name Freq PRN Reason Stop Dose Admin Acetaminophen 650 mg 05/07/20 23:32 Acetaminophen 325 Mg Tab PO Q4H PRN Pain MILD(1-3)/Fever >100.5/CLAIRE Amlodipine Besylate 10 mg 05/08/20 10:00 05/10/20 13:00 Amlodipine 10 Mg Tab PO 10 mg QDAY [facility] Administration Heparin Sodium (Porcine) 5,000 unit 05/10/20 22:00 05/11/20 06:41 Heparin 5,000 Unit/1 Ml Vial SUB-Q 5,000 unit Q8HR [facility] Administration Hydralazine HCl 100 mg 05/08/20 08:00 05/10/20 20:49 Hydralazine 100 Mg Tab PO 100 mg TID ARLETH Administration Hydralazine HCl 10 mg 05/08/20 14:02 05/09/20 05:45 Hydralazine 20 Mg/1 Ml Inj IV 10 mg Q4HR PRN Administration Hypertension Hydromorphone HCl 0.5 mg 05/07/20 23:32 05/11/20 08:37 Hydromorphone 1 Mg/1 Ml Inj IV 0.5 mg Q3H PRN Administration Pain , Severe (7-10) Piperacillin Sod/Tazobactam Sod 3.375 gm in 50 mls @ 100 mls/hr 05/10/20 15:00 05/11/20 06:41 Zosyn/Ns 3.375gm/50ml IV 100 mls/hr Q8H [facility] Administration Protocol Insulin Human Lispro 0 unit 05/08/20 07:30 05/10/20 21:36 Insulin Lispro 100 Unit/Ml Vial 3 Ml SUB-Q Not Given ACHS [facility] Protocol Metoprolol Tartrate 100 mg 05/10/20 14:02 05/10/20 21:34 Metoprolol Tartrate 25 Mg Tab PO 100 mg BID ARLETH Administration Ondansetron HCl 4 mg 05/07/20 23:32 05/08/20 21:32 Ondansetron 4 Mg/2 Ml Inj IV 4 mg Q8H PRN Administration Nausea And Vomiting Oxycodone/Acetaminophen 1 tab 05/07/20 23:32 05/09/20 19:16 Oxycodone /Acetaminophen 5-325mg Tab PO 1 tab Q6H PRN Administration Pain, Moderate (4-6) Sodium Bicarbonate 650 mg 05/11/20 10:00 Sodium Bicarbonate 650 Mg Tab PO TID [facility] Sodium Chloride 10 ml 05/08/20 10:00 05/10/20 21:35 Sodium Chloride 0.9% 10 Ml Flush Syringe IV 10 ml BID ARLETH Administration Sodium Chloride 10 ml 05/07/20 23:32 Sodium Chloride 0.9% 10 Ml Flush Syringe IV PRN PRN LINE FLUSH Nutrition/Malnutrition Assess - Dietary Evaluation Nutrition/Malnutrition Findings: Nutrition Notes Start: 05/09/20 12:48 Freq: Status: Active Protocol: Document 05/09/20 12:48 JERRY (Rec: 05/09/20 12:51 NHALL [id number]) Nutrition Notes Need for Assessment generated from: Education Current Diet Consistent CHO Pertinent Medications Coumadin Subjective/Other Information Pt reports first time taking coumadin. DNI education provided to her via phone at 12:47. Burn Absent Trauma Absent Minimum of two criteria No #1 Nutrition Diagnosis Food and nutrition-related knowledge deficit Etiology first-time taking coumadin As Evidenced by Signs and Symptoms pt unaware of foods containing vitamin K Nutrition Intervention Teaching Recipient Patient Learning Readiness Good Teaching Methods Discussion Response to Teaching Verbalize understanding Barriers to Learning No Barriers RD phone number provided Yes Patient aware of follow up options Yes Goal #1 Limit intake of high vitamin K foods while taking coumadin Anticipated Discharge Needs: Low vitamin K diet if coumadin prescribed for home use
[2020-05-11] MEDS: hydrALAZINE 100 MG TAB PO SCH ×3 (10:09→22:31)
[2020-05-11] MEDS: INSULIN LISPRO 100 UNIT/ML VIAL 3 mL SUB-Q SCH ×4 (10:15→22:00)
--- NOTE | 2020-05-11 13:09 | Progress Note ---
Assessment and Plan - Patient Problems (1) Osteomyelitis of third toe of right foot Current Visit: No Status: Acute Plan to address problem: Waiting for MRI and arterial dopplers to be performed. Subjective Date of service: 05/11/20 Patient Reports: Positive: no new complaints Objective Vital Signs - 12hr 05/11/20 05/11/20 05/11/20 04:58 07:15 07:17 Temperature 97.5 F L 98.0 F Pulse Rate 72 77 Respiratory 18 20 Rate Blood Pressure 143/77 144/77 O2 Sat by Pulse 92 92 96 Oximetry - Labs 05/11/20 05:29 05/11/20 05:29 Diabetes panel 05/10/20 05/11/20 Range/Units 16:10 05:29 Sodium 135 L 133 L (137-145) mmol/L Potassium 4.3 4.4 (3.6-5.0) mmol/L Chloride 104.3 103.9 (98-107) mmol/L Carbon Dioxide 20 L 17 L (22-30) mmol/L BUN 50 H 50 H (7-17) mg/dL Creatinine 4.2 H 4.2 H (0.6-1.2) mg/dL Glucose 120 H 142 H (65-100) mg/dL Calcium 8.7 8.5 (8.4-10.2) mg/dL Calcium panel 05/10/20 05/10/20 05/11/20 Range/Units 16:10 16:10 05:29 Calcium 8.7 8.5 (8.4-10.2) mg/dL Phosphorus 4.60 H (2.5-4.5) mg/dL Pituitary panel 05/10/20 05/11/20 Range/Units 16:10 05:29 Sodium 135 L 133 L (137-145) mmol/L Potassium 4.3 4.4 (3.6-5.0) mmol/L Chloride 104.3 103.9 (98-107) mmol/L Carbon Dioxide 20 L 17 L (22-30) mmol/L BUN 50 H 50 H (7-17) mg/dL Creatinine 4.2 H 4.2 H (0.6-1.2) mg/dL Glucose 120 H 142 H (65-100) mg/dL Calcium 8.7 8.5 (8.4-10.2) mg/dL Adrenal panel 05/10/20 05/11/20 Range/Units 16:10 05:29 Sodium 135 L 133 L (137-145) mmol/L Potassium 4.3 4.4 (3.6-5.0) mmol/L Chloride 104.3 103.9 (98-107) mmol/L Carbon Dioxide 20 L 17 L (22-30) mmol/L BUN 50 H 50 H (7-17) mg/dL Creatinine 4.2 H 4.2 H (0.6-1.2) mg/dL Glucose 120 H 142 H (65-100) mg/dL Calcium 8.7 8.5 (8.4-10.2) mg/dL
--- NOTE | 2020-05-11 13:37 | Magnetic Resonance Report ---
MR CONCHIS nonjoint RT wo con INDICATION / CLINICAL INFORMATION: Right plantar ulcer with osteo on plain xray. TECHNIQUE: Multiplanar, multisequence MR images were obtained. Routine MRI of the foot obtained without IV contr ast COMPARISON: Radiograph 05/07/2020 FINDINGS: There is a large plantar ulcer identified involving the distal forefoot at the level of the distal th ird metatarsal. There is severe osteolytic destruction identified involving the distal aspect of the third metatarsal with severe associated T1 and T2 signal abnormality consistent with acute on chronic osteomyelitis. There is also evidence of acute osteomyelitis involving the middle diaphysis of the t hird metatarsal. There is abnormal T1 weighted signal identified involving the third toe proximal pha lanx The midfoot is grossly intact. IMPRESSION: 1. Severe destructive osteomyelitis involving the distal aspect of the third metatarsal with large ov erlying plantar soft tissue ulceration. 2. Acute osteomyelitis involving the middle diaphysis of the third metatarsal as well as the proximal phalanx of the third toe. Signer Name: Rubio Nova MD Signed: 05/11/2020 1:32 PM Workstation Name: [id number]
[2020-05-11] MEDS: SODIUM BICARBONATE 650 MG TAB PO SCH ×3 (13:56→22:32)
[2020-05-11] MEDS: amLODIPine 10 MG TAB PO SCH (14:01)
[2020-05-11] MEDS: METOPROLOL TARTRATE 25 MG TAB PO SCH ×2 (14:01→22:33)
--- NOTE | 2020-05-11 14:12 | Vascular Lab Report ---
DUPLEX DOPPLER LOWER EXTREMITY ARTERIAL, RIGHT INDICATION: diabetic right plantar ulcer. TECHNIQUE: Arterial duplex examination of the right lower extremity performed using B-mode, color flow and spect ral Doppler assessment. FINDINGS: RIGHT: Common Femoral Artery: PSV 164 cm/sec. Triphasic waveform. Proximal SFA: PSV 188 cm/sec. Triphasic waveform. Mid SFA: PSV 142 cm/sec. Triphasic waveform. Distal SFA: PSV 124 cm/sec. Triphasic waveform. Popliteal artery: PSV 103 cm/sec. Triphasic waveform. Posterior tibial artery: PSV 108 cm/sec. Triphasic waveform. Dorsalis Pedis Artery: PSV 99 cm/sec. Triphasic waveform. IMPRESSION: 1. No significant lower extremity peripheral artery disease. Doppler Waveform: * Triphasic is normal. * Biphasic is abnormal if clear transition from triphasic signal along vascular tree. * Monophasic is abnormal. Signer Name: Brian Duggan MD Signed: 05/11/2020 2:07 PM Workstation Name: [id number]
--- NOTE | 2020-05-11 14:14 | Ultrasound Report ---
ULTRASOUND RENAL INDICATION / CLINICAL INFORMATION: Acute renal failure.. COMPARISON: CT abdomen/pelvis from 09/13/2019 FINDINGS: RIGHT KIDNEY: Length = 10.7 cm. [normal > 9 cm] - Parenchymal Thickness = 1.6 cm. [normal > 1.5 cm] - Echogenicity: Normal. - Hydronephrosis: None. - Cyst or mass: No significant abnormality. - Stones: None seen. LEFT KIDNEY: Length = 11.5 cm. [normal > 9 cm] - Parenchymal Thickness = 1.8 cm. [normal > 1.5 cm] - Echogenicity: Normal. - Hydronephrosis: None. - Cyst or mass: 2.1 cm simple cyst in the upper pole - Stones: None seen. URINARY BLADDER: No significant abnormality. FREE FLUID: None. ADDITIONAL FINDINGS: None. IMPRESSION: 1. Tiny simple left renal cyst. Otherwise unremarkable exam. Signer Name: Brian Duggan MD Signed: 05/11/2020 2:10 PM Workstation Name: [id number]
--- NOTE | 2020-05-11 20:04 | Progress Note ---
Assessment and Plan Cultures: None A/P: 29-year-old female past medical history diabetes, morbid obesity admitted with right foot eschar and osteomyelitis #Right third metatarsal osteomyelitis: Continue antibiotics for now, ultimate antibiotic plan will depend on surgical outlook. She was seen by me in December of this year and was given 6 weeks of cefepime due to Pseudomonas and GBS in her cultures at that time. #DM2: tight glycemic control for best wound outcomes #Morbid obesity: BMI = 46 Recs: -Given prior cultures with PsA and GBS will continue with Zosyn for now -She is refusing amputation. However there is significant bony destruction, as such I am concerned that antibiotics may not be effective. Regardless we will attempt, though if that fails she will likely need to reconsider her stance on amputation. Thank you for the consult, we will continue to follow. Treasure Barnes MD [facility] ([facility]) O: [phone] F: [phone] Subjective Date of service: 05/11/20 Interval history: Afebrile, white count elevated 11.4. She is refusing amputation at this time. Imaging personally viewed: Lower extremity MRI: Severe destructive osteo on the distal aspect of third metatarsal head and acute osteo in the middle diaphysis of the third metatarsal and proximal phalanx of third toe. Objective - Exam Narrative Exam: Physical Exam: Constitutional: Alert, cooperative. No acute distress Head, Ears, Nose: Normocephalic, atraumatic. Eyes: Conjunctivae/corneas clear. Neck: Supple, no meningeal signs Oral: dentition fair, no thrush Cardiovascular: S1, S2 normal. Respiratory: Good air entry, clear to auscultation bilaterally GI: Soft, non-tender; bowel sounds normal. No peritoneal signs. Musculoskeletal: Right foot eschar overlying third metatarsal head Skin: No rash or abscess Hem/Lymphatic: No palpable cervical or supraclavicular nodes. No lymphangitis Psych: Mood ok. Affect normal Neurological: Awake, alert, oriented. No gross abnormality - Constitutional Vitals: Vital Signs Temp Pulse Resp BP Pulse Ox 97.6 F 74 20 158/78 96 05/11/20 16:06 05/11/20 16:06 05/11/20 16:06 05/11/20 16:06 05/11/20 16:06 Temperature -Last 24 Hours Temperature 97.6 F Temperature 98.0 F Temperature 98.1 F Temperature 98.0 F Temperature 97.5 F Temperature 98.0 F - Labs CBC & Chem 7: 05/11/20 05:29 05/11/20 05:29 Labs: Abnormal lab results 05/10/20 05/11/20 05/11/20 Range/Units 21:23 05:29 05:29 WBC 11.4 H (4.5-11.0) K/mm3 RBC 3.55 L (3.65-5.03) M/mm3 Hgb 8.2 L (10.1-14.3) gm/dl Hct 26.0 L (30.3-42.9) % MCV 73 L (79-97) fl MCH 23 L (28-32) pg RDW 17.0 H (13.2-15.2) % Sodium 133 L (137-145) mmol/L Carbon Dioxide 17 L (22-30) mmol/L BUN 50 H (7-17) mg/dL Creatinine 4.2 H (0.6-1.2) mg/dL Glucose 142 H (65-100) mg/dL POC Glucose 143 H (70-105) mg/dL 05/11/20 05/11/20 05/11/20 Range/Units 07:14 13:28 16:07 WBC (4.5-11.0) K/mm3 RBC (3.65-5.03) M/mm3 Hgb (10.1-14.3) gm/dl Hct (30.3-42.9) % MCV (79-97) fl MCH (28-32) pg RDW (13.2-15.2) % Sodium (137-145) mmol/L Carbon Dioxide (22-30) mmol/L BUN (7-17) mg/dL Creatinine (0.6-1.2) mg/dL Glucose (65-100) mg/dL POC Glucose 130 H 115 H 172 H (70-105) mg/dL
[2020-05-12] MEDS: PIPERACILLIN/TAZOBACTAM 3.375 3.375 GM/50 ML BAG IV SCH ×3 (01:00→16:00)
[2020-05-12] MEDS: SODIUM CHLORIDE 0.9% 1000 ML 1,000 ML IV SCH ×2 (01:11→19:40)
[2020-05-12] MEDS: HYDROmorphone 1 MG/1 ML INJ IV PRN ×4 (03:42→19:41)
[2020-05-12 05:47] LABS: Hemoglobin 8.5 gm/dl (10.1-14.3); Mean Corpuscular HGB Conc 31 % (30-34); Mean Corpuscular Volume 73 fl (79-97); Red Blood Count 3.68 M/mm3 (3.65-5.03); Red Cell Distribution Width 17.1 % (13.2-15.2)
[2020-05-12 05:59] LABS: Platelet Count 339 K/mm3 (140-440)
[2020-05-12 06:02] LABS: INR 1.13 (0.87-1.13)
[2020-05-12 06:05] LABS: Calcium 8.6 mg/dL (8.4-10.2)
[2020-05-12] MEDS: HEPARIN 5,000 UNIT/1 ML VIAL SUB-Q SCH ×3 (06:34→21:40)
--- NOTE | 2020-05-12 08:48 | Progress Note ---
Assessment and Plan - Patient Problems (1) Osteomyelitis of third toe of right foot Current Visit: No Status: Acute Plan to address problem: 1) Follow ID recommendations 2) Pt refuses consideration of amputation. 3) I will sign off. Subjective Date of service: 05/12/20 Patient Reports: Positive: no new complaints Objective Vital Signs - 12hr 05/11/20 05/11/20 05/12/20 22:28 22:33 00:00 Temperature 98.0 F Pulse Rate 69 73 68 Respiratory 18 Rate Blood Pressure 119/55 119/55 145/81 Blood Pressure [Right] O2 Sat by Pulse 95 Oximetry 05/12/20 05/12/20 04:50 07:00 Temperature 97.7 F 97.8 F Pulse Rate 69 78 Respiratory 18 18 Rate Blood Pressure 127/62 Blood Pressure 130/70 [Right] O2 Sat by Pulse 94 95 Oximetry - Labs 05/12/20 05:21 05/12/20 05:21 Diabetes panel 05/12/20 Range/Units 05:21 Sodium 137 (137-145) mmol/L Potassium 4.5 (3.6-5.0) mmol/L Chloride 106.4 (98-107) mmol/L Carbon Dioxide 20 L (22-30) mmol/L BUN 44 H (7-17) mg/dL Creatinine 4.0 H (0.6-1.2) mg/dL Glucose 142 H (65-100) mg/dL Calcium 8.6 (8.4-10.2) mg/dL Calcium panel 05/12/20 Range/Units 05:21 Calcium 8.6 (8.4-10.2) mg/dL Pituitary panel 05/12/20 Range/Units 05:21 Sodium 137 (137-145) mmol/L Potassium 4.5 (3.6-5.0) mmol/L Chloride 106.4 (98-107) mmol/L Carbon Dioxide 20 L (22-30) mmol/L BUN 44 H (7-17) mg/dL Creatinine 4.0 H (0.6-1.2) mg/dL Glucose 142 H (65-100) mg/dL Calcium 8.6 (8.4-10.2) mg/dL Adrenal panel 05/12/20 Range/Units 05:21 Sodium 137 (137-145) mmol/L Potassium 4.5 (3.6-5.0) mmol/L Chloride 106.4 (98-107) mmol/L Carbon Dioxide 20 L (22-30) mmol/L BUN 44 H (7-17) mg/dL Creatinine 4.0 H (0.6-1.2) mg/dL Glucose 142 H (65-100) mg/dL Calcium 8.6 (8.4-10.2) mg/dL - Imaging Additional Studies: MRI and arterial dopplers reviewed.
[2020-05-12] MEDS: INSULIN LISPRO 100 UNIT/ML VIAL 3 mL SUB-Q SCH ×4 (08:54→22:33)
[2020-05-12] MEDS: SODIUM BICARBONATE 650 MG TAB PO SCH ×3 (09:36→21:39)
[2020-05-12] MEDS: amLODIPine 10 MG TAB PO SCH (09:36)
[2020-05-12] MEDS: hydrALAZINE 100 MG TAB PO SCH ×4 (09:37→21:39)
[2020-05-12] MEDS: METOPROLOL TARTRATE 25 MG TAB PO SCH ×2 (09:37→21:39)
--- NOTE | 2020-05-12 09:42 | Progress Note ---
Assessment and Plan 1. Acute kidney injury vs progressive CKD: Suspected Acute kidney injury superimposed on CKD stage 4. 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 Prior Creatinine was around 3 in November 2019. Most likely progressive CKD in the setting of poorly controlled DM / HTN. Renal US negative. Monitor renal function. Creatinine 4 from 4.2 from 4.2 from 3.7 from 3.5. Continue IV fluids. Renal prognosis is guarded. Avoid nephrotoxic agents. Meds dosage based on GFR. 2. FEN: Mild metabolic acidosis, PO Sodium bicarbonate, monitor. Monitor lytes and volume status. 3. 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 Abx per ID. Followed by Surgery. 4. Diabetes mellitus type 1: Monitor BG closely. 5. Uncontrolled Hypertension: Monitor BP. Continue current meds. 6. Microcytic Anemia, POA: Monitor Hb. Examination: The patient was not examined today. However the examination findings from other providers noted. The current and previous medical records are reviewed in detail as are laboratory and imaging data reviewed when appropriate. Medications being given are also reviewed. In addition the case has been discussed with the attending hospitalist and the nurse when needed. New renal recommendations as above. Subjective Date of service: 05/12/20 Objective - Vital Signs Vital signs: Vital Signs - 12hr 05/11/20 05/11/20 05/12/20 22:28 22:33 00:00 Temperature 98.0 F Pulse Rate 69 73 68 Respiratory 18 Rate Blood Pressure 119/55 119/55 145/81 Blood Pressure [Right] O2 Sat by Pulse 95 Oximetry 05/12/20 05/12/20 04:50 07:00 Temperature 97.7 F 97.8 F Pulse Rate 69 78 Respiratory 18 18 Rate Blood Pressure 127/62 Blood Pressure 130/70 [Right] O2 Sat by Pulse 94 95 Oximetry - Lab 05/12/20 05:21 05/12/20 05:21 Most recent lab results Calcium 8.6 mg/dL (8.4-10.2) 05/12/20 05:21 Phosphorus 4.60 mg/dL (2.5-4.5) H 05/10/20 16:10 Urine Creatinine 66.5 mg/dL (0.1-20.0) H 05/08/20 07:30 Urine Sodium 29 mmol/L 05/08/20 07:30 Urine Total Protein 96 mg/dL (5-11.8) H 05/08/20 07:30 Medications & Allergies - Medications Allergies/Adverse Reactions: Allergies No Known Allergies Allergy (Unverified 08/24/19 12:03) Home Medications: Home Medications Medication Instructions Recorded Confirmed Last Taken Type Prednisone [predniSONE 10 mg 10 mg PO .TAPER #52 tab.ds.pk 09/20/19 11/22/19 Un known Rx (6-Day Pack, 21 Tabs)] Acetaminophen [Acetaminophen TAB] 650 mg PO Q4H PRN 30 Days #30 11/26/19 Unknown Rx tablet Metoprolol [Lopressor TAB] 75 mg PO BID 30 Days #60 tablet 11/26/19 Unknown Rx Warfarin Sodium [Coumadin] 5 mg PO DAILY 15 Days #15 tab 11/26/19 Unknown Rx amLODIPine 10 mg PO QDAY tablet 11/26/19 Unknown Rx hydrALAZINE [Apresoline TAB] 100 mg PO TID 30 Days #90 tab 11/26/19 Unknown Rx Active Medications: Generic Name Dose Route Start Last Admin Trade Name Freq PRN Reason Stop Dose Admin Acetaminophen 650 mg 05/07/20 23:32 Acetaminophen 325 Mg Tab PO Q4H PRN Pain MILD(1-3)/Fever >100.5/CLAIRE Amlodipine Besylate 10 mg 05/08/20 10:00 05/12/20 09:36 Amlodipine 10 Mg Tab PO 10 mg QDAY [facility]LE[facility] Administration Doxazosin Mesylate 4 mg 05/11/20 22:00 05/12/20 00:00 Doxazosin 4 Mg Tab PO Not Given HS [facility] Heparin Sodium (Porcine) 5,000 unit 05/10/20 22:00 05/12/20 06:34 Heparin 5,000 Unit/1 Ml Vial SUB-Q 5,000 unit Q8HR ARLETH Administration Hydralazine HCl 100 mg 05/08/20 08:00 05/12/20 09:37 Hydralazine 100 Mg Tab PO 100 mg TID ARLETH Administration Hydralazine HCl 10 mg 05/08/20 14:02 05/09/20 05:45 Hydralazine 20 Mg/1 Ml Inj IV 10 mg Q4HR PRN Administration Hypertension Hydromorphone HCl 0.5 mg 05/07/20 23:32 05/12/20 09:34 Hydromorphone 1 Mg/1 Ml Inj IV 0.5 mg Q3H PRN Administration Pain , Severe (7-10) Piperacillin Sod/Tazobactam Sod 3.375 gm in 50 mls @ 100 mls/hr 05/10/20 15:00 05/12/20 06:37 Zosyn/Ns 3.375gm/50ml IV 100 mls/hr Q8H ARLETH Administration Protocol Sodium Chloride 1,000 mls @ 75 mls/hr 05/11/20 20:15 05/12/20 01:11 Nacl 0.9% 1000 Ml IV 75 mls/hr DIRECT ARLETH Administration Insulin Human Lispro 0 unit 05/08/20 07:30 05/11/20 22:00 Insulin Lispro 100 Unit/Ml Vial 3 Ml SUB-Q Not Given ACHS [facility] Protocol Metoprolol Tartrate 100 mg 05/10/20 14:02 05/12/20 09:37 Metoprolol Tartrate 25 Mg Tab PO 100 mg BID ARLETH Administration Ondansetron HCl 4 mg 05/07/20 23:32 05/08/20 21:32 Ondansetron 4 Mg/2 Ml Inj IV 4 mg Q8H PRN Administration Nausea And Vomiting Oxycodone/Acetaminophen 1 tab 05/07/20 23:32 05/09/20 19:16 Oxycodone /Acetaminophen 5-325mg Tab PO 1 tab Q6H PRN Administration Pain, Moderate (4-6) Sodium Bicarbonate 650 mg 05/11/20 10:00 05/12/20 09:36 Sodium Bicarbonate 650 Mg Tab PO 650 mg TID ARLETH Administration Sodium Chloride 10 ml 05/08/20 10:00 05/12/20 09:35 Sodium Chloride 0.9% 10 Ml Flush Syringe IV 10 ml BID ARLETH Administration Sodium Chloride 10 ml 05/07/20 23:32 Sodium Chloride 0.9% 10 Ml Flush Syringe IV PRN PRN LINE FLUSH
--- NOTE | 2020-05-12 12:47 | Progress Note ---
Assessment and Plan Assessment and plan: 29-year-old female with history of diabetes and hypertension comes in for right foot infection. Patient has been allergy of perforating ulcer on the right foot on the heel which is improved over the last 1 year. Now it is a 1 cm circular dark looking ulcer with a surrounding bleb and swelling of the feet. No fever or chills. Patient has not been taking her blood pressure medication for 2 weeks. In November 2019 she was found to have an abscess and signs of osteomyelitis. Patient says the the ulcer on the right foot heel is nearly healed and showed me pictures from 1 year ago to now it used to be a 3 cm ulcer which has come down to 1 cm but the ulcer is covered with eschar and not healed completely. It is a 1 cm x 1 cm ulcer. There is a small bleb adjacent to the ulcer near the fourth toe of the right foot. No coronavirus exposure. Patient is on Coumadin for anticoagulation. 05/09: Continue supportive care. Awaiting ortho input. Continue abx. 05/10: Continue supportive care, ID noted, calling surgery again. continue antibiotics 05/11: Noted Osteomylitis. Continue supportive care, ID input noted, will start on Vancomycin. Renal input noted MR BALDERRAMA RT: IMPRESSION: 1. Severe destructive osteomyelitis involving the distal aspect of the third metatarsal with large overlying plantar soft tissue ulceration. 2. Acute osteomyelitis involving the middle diaphysis of the third metatarsal as well as the proximal phalanx of the third toe. 05/12: Patient seen and examined today discussed right third metatarsal osteomyelitis. The patient was treated this week year with 6 weeks of antibiotics on cefepime due to Pseudomonas and GBS in her cultures at that time according to ID. She verbalized understanding but again is refusing amputation. We will place a PICC line for possible continuation of Zosyn up until 06/20/2020. Wound care management as outpatient. She understands the risk that this may not heal and may eventually require amputation. Severity again discussed and patient verbalized understanding will be working on discharge tomorrow (1)Osteomylitis-Cellulitis of right foot Current Visit: Yes Status: Acute Plan to address problem: Patient initiated on Unasyn IV and vancomycin IV Wound care consult requested ID consulted Surgery consulted to evaluate for possible debridement. (2) Hypertensive urgency, malignant Current Visit: No Status: Acute Plan to address problem: Blood pressure medications initiated and IV hydralazine 10 mg every 3 hours as needed (3) T2DM (type 2 diabetes mellitus) Current Visit: Yes Status: Chronic Qualifiers: Diabetes mellitus intermediate insulin use: unspecified intermediate insulin use status Plan to address problem: Coverage and check hemoglobin A1c Initiated on insulin or oral hypoglycemics ending her blood sugar range (4) Chronic osteomyelitis of right foot Current Visit: Yes Status: Chronic Plan to address problem: Patient has osteomyelitis of the distal end of the third metatarsal We will get orthopedic consult will also get ID consult (5) Anemia Current Visit: No Status: Chronic Qualifiers: Anemia type: due to chronic kidney disease Qualified Code(s): D64.9 - Anemia, unspecified Plan to address problem: Anemia work-up (6) Acute kidney injury with vasomotor nephropathy with underlying progressive CKD Current Visit: No Status: Acute Plan to address problem: IV fluids for now Nephrology consult (7) DVT prophylaxis Current Visit: No Status: Acute Plan to address problem: On Coumadin and GI prophylaxis History Interval history: Patient seen and examined, no new complaints, no fever reported overnight, Imaging studies concerning for osteomylitis. Discussed options with the patient she is refusing amputation at this time. Hospitalist Physical - Physical exam Narrative exam: General appearance: Present: no acute distress, well-nourished - EENT Eyes: Present: PERRL ENT: hearing intact, clear oral mucosa - Neck Neck: Present: supple, normal ROM - Respiratory Respiratory effort: normal Respiratory: bilateral: CTA - Cardiovascular Heart rate: 78 Rhythm: regular Heart Sounds: Present: S1 & S2. Absent: rub, click - Extremities Extremities: no ischemia, pulses intact, pulses symmetrical, No edema, abnormal (Right foot ulcer on the heel just adjacent to the third and fourth toes about 2 inches away. And there is a small blood the other third and fourth toe of the right foot.) Extremity abnormal: other (As above) Peripheral Pulses: within normal limits - Abdominal General gastrointestinal: Present: soft, non-tender, non-distended, normal bowel sounds Female genitourinary: Present: normal - Rectal Rectal Exam: deferred - Integumentary Integumentary: Present: clear, warm, dry - Musculoskeletal Musculoskeletal: gait normal, strength equal bilaterally - Psychiatric Psychiatric: appropriate mood/affect, intact judgment & insight - Neurologic Neurologic: CNII-XII intact, moves all extremities - Allied Health Allied health notes reviewed: nursing, case management - Constitutional Vitals: Temp Pulse Resp BP Pulse Ox 97.8 F 78 18 130/70 95 05/12/20 07:00 05/12/20 07:00 05/12/20 07:00 05/12/20 07:00 05/12/20 07:00 General appearance: Present: no acute distress, well-nourished Results - Labs CBC & Chem 7: 05/12/20 05:21 05/12/20 05:21 Labs: Laboratory Last Values WBC 14.2 K/mm3 (4.5-11.0) H 05/12/20 05:21 RBC 3.68 M/mm3 (3.65-5.03) 05/12/20 05:21 Hgb 8.5 gm/dl (10.1-14.3) L 05/12/20 05:21 Hct 27.0 % (30.3-42.9) L 05/12/20 05:21 MCV 73 fl (79-97) L 05/12/20 05:21 MCH 23 pg (28-32) L 05/12/20 05:21 MCHC 31 % (30-34) 05/12/20 05:21 RDW 17.1 % (13.2-15.2) H 05/12/20 05:21 Plt Count 339 K/mm3 (140-440) 05/12/20 05:21 Lymph % (Auto) 14.8 % (13.4-35.0) 05/08/20 05:52 Lamar % (Auto) 8.5 % (0.0-7.3) H 05/08/20 05:52 Eos % (Auto) 1.7 % (0.0-4.3) 05/08/20 05:52 Baso % (Auto) 0.9 % (0.0-1.8) 05/08/20 05:52 Lymph # (Auto) 2.0 K/mm3 (1.2-5.4) 05/08/20 05:52 Lamar # (Auto) 1.2 K/mm3 (0.0-0.8) H 05/08/20 05:52 Eos # (Auto) 0.2 K/mm3 (0.0-0.4) 05/08/20 05:52 Baso # (Auto) 0.1 K/mm3 (0.0-0.1) 05/08/20 05:52 Seg Neutrophils % 74.1 % (40.0-70.0) H 05/08/20 05:52 Seg Neutrophils # 10.0 K/mm3 (1.8-7.7) H 05/08/20 05:52 PT 14.3 Sec. (12.2-14.9) 05/12/20 05:21 INR 1.13 (0.87-1.13) 05/12/20 05:21 Sodium 137 mmol/L (137-145) 05/12/20 05:21 Potassium 4.5 mmol/L (3.6-5.0) 05/12/20 05:21 Chloride 106.4 mmol/L (98-107) 05/12/20 05:21 Carbon Dioxide 20 mmol/L (22-30) L 05/12/20 05:21 Anion Gap 15 mmol/L 05/12/20 05:21 BUN 44 mg/dL (7-17) H 05/12/20 05:21 Creatinine 4.0 mg/dL (0.6-1.2) H 05/12/20 05:21 Estimated GFR 16 ml/min 05/12/20 05:21 BUN/Creatinine Ratio 11 % 05/12/20 05:21 Glucose 142 mg/dL (65-100) H 05/12/20 05:21 POC Glucose 131 mg/dL (70-105) H 05/12/20 11:19 Hemoglobin A1c 6.5 % (4-6) H 05/08/20 05:52 Lactic Acid 0.60 mmol/L (0.7-2.0) L 05/07/20 15:05 Calcium 8.6 mg/dL (8.4-10.2) 05/12/20 05:21 Phosphorus 4.60 mg/dL (2.5-4.5) H 05/10/20 16:10 Iron 32 ug/dL (37-170) L 05/08/20 15:07 TIBC 208 mcg/dL (250-450) L 05/08/20 15:07 % Saturation 15.38 % 05/08/20 15:07 Transferrin 164 mg/dl (192-382) L 05/08/20 15:07 Total Bilirubin < 0.20 mg/dL (0.1-1.2) 05/08/20 05:52 AST 16 units/L (5-40) 05/08/20 05:52 ALT 17 units/L (7-56) 05/08/20 05:52 Alkaline Phosphatase 109 units/L (35-129) 05/08/20 05:52 C-Reactive Protein 1.20 mg/dL (0.00-1.30) 05/11/20 05:29 Total Protein 7.7 g/dL (6.3-8.2) 05/08/20 05:52 Albumin 3.3 g/dL (3.9-5) L 05/08/20 05:52 Albumin/Globulin Ratio 0.8 % 05/08/20 05:52 Vitamin B12 1265 pg/mL (211-911) H 05/08/20 15:07 PTH Intact 393.8 pg/mL (15-65) H 05/12/20 05:21 Urine Color Straw (Yellow) 05/08/20 07:30 Urine Turbidity Clear (Clear) 05/08/20 07:30 Urine pH 5.0 (5.0-7.0) 05/08/20 07:30 Ur Specific [place] 1.009 (1.003-1.030) 05/08/20 07:30 Urine Protein 100 mg/dl mg/dL (Negative) 05/08/20 07:30 Urine Glucose (UA) 50 mg/dL (Negative) 05/08/20 07:30 Urine Ketones Neg mg/dL (Negative) 05/08/20 07:30 Urine Blood Sm (Negative) 05/08/20 07:30 Urine Nitrite Neg (Negative) 05/08/20 07:30 Urine Bilirubin Neg (Negative) 05/08/20 07:30 Urine Urobilinogen < 2.0 mg/dL (<2.0) 05/08/20 07:30 Ur Leukocyte Esterase Neg (Negative) 05/08/20 07:30 Urine WBC (Auto) 2.0 /HPF (0.0-6.0) 05/08/20 07:30 Urine RBC (Auto) 3.0 /HPF (0.0-6.0) 05/08/20 07:30 U Epithel Cells (Auto) 3.0 /HPF (0-13.0) 05/08/20 07:30 Urine Bacteria (Auto) 1+ /HPF (Negative) 05/08/20 07:30 Urine Creatinine 66.5 mg/dL (0.1-20.0) H 05/08/20 07:30 Protein/Creatinin Ratio 1.44 05/08/20 07:30 Urine Sodium 29 mmol/L 05/08/20 07:30 Urine Total Protein 96 mg/dL (5-11.8) H 05/08/20 07:30 Random Vancomycin 16.2 ug/mL (0-40.0) 05/09/20 05:33 Irwin/IV: Voiding Method Toilet IV Catheter Type [Left Forearm INT / Saline Lock ] IV Catheter Type [Left Peripheral IV Antecubital] Active Medications - Current Medications Current Medications: Generic Name Dose Route Start Last Admin Trade Name Freq PRN Reason Stop Dose Admin Acetaminophen 650 mg 05/07/20 23:32 Acetaminophen 325 Mg Tab PO Q4H PRN Pain MILD(1-3)/Fever >100.5/CLAIRE Amlodipine Besylate 10 mg 05/08/20 10:00 05/12/20 09:36 Amlodipine 10 Mg Tab PO 10 mg QDAY ARLETH Administration Doxazosin Mesylate 4 mg 05/11/20 22:00 05/12/20 00:00 Doxazosin 4 Mg Tab PO Not Given HS [facility] Heparin Sodium (Porcine) 5,000 unit 05/10/20 22:00 05/12/20 06:34 Heparin 5,000 Unit/1 Ml Vial SUB-Q 5,000 unit Q8HR ARLETH Administration Hydralazine HCl 100 mg 05/08/20 08:00 05/12/20 09:37 Hydralazine 100 Mg Tab PO 100 mg TID ARLETH Administration Hydralazine HCl 10 mg 05/08/20 14:02 05/09/20 05:45 Hydralazine 20 Mg/1 Ml Inj IV 10 mg Q4HR PRN Administration Hypertension Hydromorphone HCl 0.5 mg 05/07/20 23:32 05/12/20 09:34 Hydromorphone 1 Mg/1 Ml Inj IV 0.5 mg Q3H PRN Administration Pain , Severe (7-10) Piperacillin Sod/Tazobactam Sod 3.375 gm in 50 mls @ 100 mls/hr 05/10/20 15:00 05/12/20 06:37 Zosyn/Ns 3.375gm/50ml IV 100 mls/hr Q8H ARLETH Administration Protocol Sodium Chloride 1,000 mls @ 75 mls/hr 05/11/20 20:15 05/12/20 01:11 Nacl 0.9% 1000 Ml IV 75 mls/hr DIRECT [facility]LETH Administration Insulin Human Lispro 0 unit 05/08/20 07:30 05/11/20 22:00 Insulin Lispro 100 Unit/Ml Vial 3 Ml SUB-Q Not Given ACHS [facility] Protocol Metoprolol Tartrate 100 mg 05/10/20 14:02 05/12/20 09:37 Metoprolol Tartrate 25 Mg Tab PO 100 mg BID ARLETH Administration Ondansetron HCl 4 mg 05/07/20 23:32 05/08/20 21:32 Ondansetron 4 Mg/2 Ml Inj IV 4 mg Q8H PRN Administration Nausea And Vomiting Oxycodone/Acetaminophen 1 tab 05/07/20 23:32 05/09/20 19:16 Oxycodone /Acetaminophen 5-325mg Tab PO 1 tab Q6H PRN Administration Pain, Moderate (4-6) Sodium Bicarbonate 650 mg 05/11/20 10:00 05/12/20 09:36 Sodium Bicarbonate 650 Mg Tab PO 650 mg TID ARLETH Administration Sodium Chloride 10 ml 05/08/20 10:00 05/12/20 09:35 Sodium Chloride 0.9% 10 Ml Flush Syringe IV 10 ml BID ARLETH Administration Sodium Chloride 10 ml 05/07/20 23:32 Sodium Chloride 0.9% 10 Ml Flush Syringe IV PRN PRN LINE FLUSH Nutrition/Malnutrition Assess - Dietary Evaluation Nutrition/Malnutrition Findings: Nutrition Notes Start: 05/09/20 12:48 Freq: Status: Active Protocol: Document 05/09/20 12:48 JERRY (Rec: 05/09/20 12:51 JERRY [id number]) Nutrition Notes Need for Assessment generated from: Education Current Diet Consistent CHO Pertinent Medications Coumadin Subjective/Other Information Pt reports first time taking coumadin. DNI education provided to her via phone at 12:47. Burn Absent Trauma Absent Minimum of two criteria No #1 Nutrition Diagnosis Food and nutrition-related knowledge deficit Etiology first-time taking coumadin As Evidenced by Signs and Symptoms pt unaware of foods containing vitamin K Nutrition Intervention Teaching Recipient Patient Learning Readiness Good Teaching Methods Discussion Response to Teaching Verbalize understanding Barriers to Learning No Barriers RD phone number provided Yes Patient aware of follow up options Yes Goal #1 Limit intake of high vitamin K foods while taking coumadin Anticipated Discharge Needs: Low vitamin K diet if coumadin prescribed for home use
--- NOTE | 2020-05-12 14:58 | Progress Note ---
Assessment and Plan Cultures: None A/P: 29-year-old female past medical history diabetes, morbid obesity admitted with right foot eschar and osteomyelitis #Right third metatarsal osteomyelitis: Continue antibiotics for now, ultimate antibiotic plan will depend on surgical outlook. She was seen by me in December of this year and was given 6 weeks of cefepime due to Pseudomonas and GBS in her cultures at that time. #DM2: tight glycemic control for best wound outcomes #Morbid obesity: BMI = 46 Recs: -Given prior cultures with PsA and GBS will continue with Zosyn for now -She is refusing amputation. However there is significant bony destruction, as such I am concerned that antibiotics may not be effective. Regardless we will attempt, though if that fails she will likely need to reconsider her stance on amputation. -Ordered PICC line -Case management consulted for Zosyn until 06/20/2020. -Continue wound care as an outpatient. Thank you for the consult, we will continue to follow. Treasure Barnes MD [facility] ([facility]) O: [phone] F: [phone] Subjective Date of service: 05/12/20 Interval history: Afebrile, white count elevated at 14.2. No other acute changes. Objective - Exam Narrative Exam: Physical Exam: Constitutional: Alert, cooperative. No acute distress Head, Ears, Nose: Normocephalic, atraumatic. Eyes: Conjunctivae/corneas clear. Neck: Supple, no meningeal signs Oral: dentition fair, no thrush Cardiovascular: S1, S2 normal. Respiratory: Good air entry, clear to auscultation bilaterally GI: Soft, non-tender; bowel sounds normal. No peritoneal signs. Musculoskeletal: Right foot eschar overlying third metatarsal head Skin: No rash or abscess Hem/Lymphatic: No palpable cervical or supraclavicular nodes. Psych: Mood ok. Affect normal Neurological: Awake, alert, oriented. No gross abnormality - Constitutional Vitals: Vital Signs Temp Pulse Resp BP Pulse Ox 97.8 F 78 18 130/70 95 05/12/20 07:00 05/12/20 07:00 05/12/20 07:00 05/12/20 07:00 05/12/20 07:00 Temperature -Last 24 Hours Temperature 97.8 F Temperature 97.7 F Temperature 98.0 F Temperature 97.8 F Temperature 97.6 F - Labs CBC & Chem 7: 05/12/20 05:21 05/12/20 05:21 Labs: Abnormal lab results 05/11/20 05/11/20 05/12/20 Range/Units 16:07 21:56 05:21 WBC (4.5-11.0) K/mm3 Hgb (10.1-14.3) gm/dl Hct (30.3-42.9) % MCV (79-97) fl MCH (28-32) pg RDW (13.2-15.2) % Carbon Dioxide 20 L (22-30) mmol/L BUN 44 H (7-17) mg/dL Creatinine 4.0 H (0.6-1.2) mg/dL Glucose 142 H (65-100) mg/dL POC Glucose 172 H 116 H (70-105) mg/dL PTH Intact (15-65) pg/mL 05/12/20 05/12/20 05/12/20 Range/Units 05:21 05:21 07:52 WBC 14.2 H (4.5-11.0) K/mm3 Hgb 8.5 L (10.1-14.3) gm/dl Hct 27.0 L (30.3-42.9) % MCV 73 L (79-97) fl MCH 23 L (28-32) pg RDW 17.1 H (13.2-15.2) % Carbon Dioxide (22-30) mmol/L BUN (7-17) mg/dL Creatinine (0.6-1.2) mg/dL Glucose (65-100) mg/dL POC Glucose 116 H (70-105) mg/dL PTH Intact 393.8 H (15-65) pg/mL 05/12/20 Range/Units 11:19 WBC (4.5-11.0) K/mm3 Hgb (10.1-14.3) gm/dl Hct (30.3-42.9) % MCV (79-97) fl MCH (28-32) pg RDW (13.2-15.2) % Carbon Dioxide (22-30) mmol/L BUN (7-17) mg/dL Creatinine (0.6-1.2) mg/dL Glucose (65-100) mg/dL POC Glucose 131 H (70-105) mg/dL PTH Intact (15-65) pg/mL
[2020-05-12] MEDS: DOXAZOSIN 4 MG TAB PO SCH ×2 (21:40)
[2020-05-13] MEDS: HYDROmorphone 1 MG/1 ML INJ IV PRN ×6 (00:01→21:24)
[2020-05-13] MEDS: PIPERACILLIN/TAZOBACTAM 3.375 3.375 GM/50 ML BAG IV SCH ×4 (00:02→23:07)
[2020-05-13] MEDS: HEPARIN 5,000 UNIT/1 ML VIAL SUB-Q SCH ×4 (05:21→21:23)
[2020-05-13 06:31] LABS: INR 1.02 (0.87-1.13)
[2020-05-13 06:37] LABS: Calcium 8.4 mg/dL (8.4-10.2)
--- NOTE | 2020-05-13 08:29 | Progress Note ---
Assessment and Plan 1. Acute kidney injury vs progressive CKD: Suspected Acute kidney injury superimposed on CKD stage 4. 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 Prior Creatinine was around 3 in November 2019. Most likely progressive CKD in the setting of poorly controlled DM / HTN. Renal US negative. Monitor renal function. Creatinine 3.7 from 4 from 4.2 from 4.2 from 3.7 from 3.5. Continue IV fluids. Renal prognosis is guarded. Avoid nephrotoxic agents. Meds dosage based on GFR. 2. FEN: Mild metabolic acidosis, PO Sodium bicarbonate, monitor. Monitor lytes and volume status. 3. 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 Abx per ID. Followed by Surgery. 4. Diabetes mellitus type 1: Monitor BG closely. 5. Uncontrolled Hypertension: Monitor BP. Continue current meds. 6. Microcytic Anemia, POA: Monitor Hb. Examination: The patient was not examined today. However the examination findings from other providers noted. The current and previous medical records are reviewed in detail as are laboratory and imaging data reviewed when appropriate. Medications being given are also reviewed. In addition the case has been discussed with the attending hospitalist and the nurse when needed. New renal recommendations as above. Subjective Date of service: 05/13/20 Objective - Vital Signs Vital signs: Vital Signs - 12hr 05/12/20 05/12/20 05/12/20 21:39 21:40 22:00 Temperature Pulse Rate 75 75 Respiratory Rate Respiratory 18 Rate [Right Foot] Blood Pressure 157/80 157/80 O2 Sat by Pulse Oximetry 05/13/20 05/13/20 05/13/20 00:04 04:38 05:21 Temperature 97.8 F 98.0 F Pulse Rate 69 72 Respiratory 18 18 20 Rate Respiratory Rate [Right Foot] Blood Pressure 123/55 111/41 O2 Sat by Pulse 94 94 Oximetry 05/13/20 07:29 Temperature 97.8 F Pulse Rate 71 Respiratory 18 Rate Respiratory Rate [Right Foot] Blood Pressure 135/72 O2 Sat by Pulse 97 Oximetry - Lab 05/12/20 05:21 05/13/20 05:39 Most recent lab results Calcium 8.4 mg/dL (8.4-10.2) 05/13/20 05:39 Phosphorus 4.60 mg/dL (2.5-4.5) H 05/10/20 16:10 Urine Creatinine 66.5 mg/dL (0.1-20.0) H 05/08/20 07:30 Urine Sodium 29 mmol/L 05/08/20 07:30 Urine Total Protein 96 mg/dL (5-11.8) H 05/08/20 07:30 Medications & Allergies - Medications Allergies/Adverse Reactions: Allergies No Known Allergies Allergy (Unverified 08/24/19 12:03) Home Medications: Home Medications Medication Instructions Recorded Confirmed Last Taken Type Acetaminophen [Acetaminophen TAB] 650 mg PO Q4H PRN 30 Days #30 11/26/19 Unknown Rx tablet Warfarin Sodium [Coumadin] 5 mg PO DAILY 15 Days #15 tab 11/26/19 Unknown Rx Doxazosin [Cardura] 4 mg PO HS #30 tablet 05/13/20 Unknown Rx Metoprolol [Lopressor TAB] 75 mg PO BID 30 Days #60 tablet 05/13/20 Unknown Rx amLODIPine 10 mg PO QDAY #30 tablet 05/13/20 Unknown Rx hydrALAZINE [Apresoline TAB] 100 mg PO TID 30 Days #90 tab 05/13/20 Unknown Rx oxyCODONE /ACETAMINOPHEN [Percocet 1 tab PO Q6H PRN #14 tablet 05/13/20 Unknown Rx 5/325 mg] Active Medications: Generic Name Dose Route Start Last Admin Trade Name Freq PRN Reason Stop Dose Admin Acetaminophen 650 mg 05/07/20 23:32 Acetaminophen 325 Mg Tab PO Q4H PRN Pain MILD(1-3)/Fever >100.5/CLAIRE Amlodipine Besylate 10 mg 05/08/20 10:00 05/12/20 09:36 Amlodipine 10 Mg Tab PO 10 mg QDAY ARLETH Administration Doxazosin Mesylate 4 mg 05/11/20 22:00 05/12/20 21:40 Doxazosin 4 Mg Tab PO 4 mg HS ARLETH Administration Heparin Sodium (Porcine) 5,000 unit 05/10/20 22:00 05/13/20 05:21 Heparin 5,000 Unit/1 Ml Vial SUB-Q 5,000 unit Q8HR ARLETH Administration Hydralazine HCl 100 mg 05/08/20 08:00 05/12/20 21:39 Hydralazine 100 Mg Tab PO 100 mg TID ARLETH Administration Hydralazine HCl 10 mg 05/08/20 14:02 05/09/20 05:45 Hydralazine 20 Mg/1 Ml Inj IV 10 mg Q4HR PRN Administration Hypertension Hydromorphone HCl 0.5 mg 05/07/20 23:32 05/13/20 05:21 Hydromorphone 1 Mg/1 Ml Inj IV 0.5 mg Q3H PRN Administration Pain , Severe (7-10) Piperacillin Sod/Tazobactam Sod 3.375 gm in 50 mls @ 100 mls/hr 05/10/20 15:00 05/13/20 00:02 Zosyn/Ns 3.375gm/50ml IV 100 mls/hr Q8H ARLETH Administration Protocol Sodium Chloride 1,000 mls @ 75 mls/hr 05/11/20 20:15 05/12/20 19:40 Nacl 0.9% 1000 Ml IV 75 mls/hr DIRECT ARLETH Administration Insulin Human Lispro 0 unit 05/08/20 07:30 05/12/20 22:33 Insulin Lispro 100 Unit/Ml Vial 3 Ml SUB-Q 2 unit ACHS ARLETH Administration Protocol Metoprolol Tartrate 100 mg 05/10/20 14:02 05/12/20 21:39 Metoprolol Tartrate 25 Mg Tab PO 100 mg BID ARLETH Administration Ondansetron HCl 4 mg 05/07/20 23:32 05/08/20 21:32 Ondansetron 4 Mg/2 Ml Inj IV 4 mg Q8H PRN Administration Nausea And Vomiting Oxycodone/Acetaminophen 1 tab 05/07/20 23:32 05/09/20 19:16 Oxycodone /Acetaminophen 5-325mg Tab PO 1 tab Q6H PRN Administration Pain, Moderate (4-6) Sodium Bicarbonate 650 mg 05/11/20 10:00 05/12/20 21:39 Sodium Bicarbonate 650 Mg Tab PO 650 mg TID ARLETH Administration Sodium Chloride 10 ml 05/08/20 10:00 05/12/20 21:40 Sodium Chloride 0.9% 10 Ml Flush Syringe IV 10 ml BID ARLETH Administration Sodium Chloride 10 ml 05/07/20 23:32 Sodium Chloride 0.9% 10 Ml Flush Syringe IV PRN PRN LINE FLUSH
[2020-05-13] MEDS: hydrALAZINE 100 MG TAB PO SCH ×4 (09:15→21:23)
[2020-05-13] MEDS: METOPROLOL TARTRATE 25 MG TAB PO SCH ×2 (09:15→21:23)
[2020-05-13] MEDS: amLODIPine 10 MG TAB PO SCH (09:16)
[2020-05-13] MEDS: SODIUM BICARBONATE 650 MG TAB PO SCH ×4 (09:16→21:22)
[2020-05-13] MEDS: INSULIN LISPRO 100 UNIT/ML VIAL 3 mL SUB-Q SCH ×4 (09:16→23:07)
--- NOTE | 2020-05-13 09:19 | Discharge Summary ---
Providers - Providers Date of Admission: 05/07/20 23:37 Attending physician: MG XIONG MD 05/08/20 01:43 Consult to Physician [CONS] Routine Comment: Consulting Provider: UDAY JEFFERS Physician Instructions: Reason For Exam: Rt foot osteomyelitis/cellulitis 05/08/20 08:21 Consult to Physician [CONS] Routine Comment: Consulting Provider: MAKAYLA ESPINOSA Physician Instructions: Reason For Exam: BITA 05/08/20 08:24 Consult to Physician [CONS] Routine Comment: Consulting Provider: BRAYDEN SAMUEL Physician Instructions: Reason For Exam: OSTEOMYLITI 05/08/20 08:30 Consult to Physician [CONS] Routine Comment: Consulting Provider: MARINA WILL Physician Instructions: 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 05/12/20 11:14 Consult to PICC Line RN [CONS] Routine Reason For Exam: PRISON ANTIBIOTICS Type Line:: PICC 05/12/20 11:15 Occupational Therapy Evaluate and Treat [CONS] Routine Comment: Reason For Exam: DEBILITY Physical Therapy Evaluation and Treat [CONS] Routine Comment: Reason For Exam: DEBILITY 05/12/20 14:58 Consult to Case Management [CONS] Routine Services Needed at Discharge: Home Health Services Additional Physician Instructions: Treasure Jeffers MD [facility] ([facility]) M: [phone] O: [phone] F: [phone] Outpatient parenteral antibiotic therapy orders Diagnosis: Right foot osteomyelitis Antibiotic administration: Zosyn 3.375 g every 8 hours until 06/20/2020 Line: Lab monitoring: CBC with differential, BUN, creatinine, LFTs, vancomycin trough, CRP once per week preferably on Saturday or Saturday For critical labs, call office: [phone] Treasure Jeffers Primary care physician: CATTLE DRIVER Hospitalization Condition: Stable Disposition: [id number] HOME UNDER HOME [facility] Exam - Constitutional Vitals: Temp Pulse Resp BP Pulse Ox 97.8 F 71 18 135/72 97 05/13/20 07:29 05/13/20 07:29 05/13/20 07:29 05/13/20 07:29 05/13/20 07:29 Plan Activity: advance as tolerated, fall precautions Diet: low fat Special Instructions: record daily weights, record daily BP diary Follow up with: PRIMARY CARE, [Primary Care Provider] - 7 Days UDAY JEFFERS MD [Staff Physician] - 7 Days MARINA WILL MD [Staff Physician] - 7 Days MAKAYLA ESPINOSA MD [Staff Physician] - 7 Days Forms: Warfarin Discharge Instruction Prescriptions: amLODIPine 10 mg PO QDAY #30 tablet hydrALAZINE [Apresoline TAB] 100 mg PO TID 30 Days #90 tab Doxazosin [Cardura] 4 mg PO HS #30 tablet Metoprolol [Lopressor TAB] 75 mg PO BID 30 Days #60 tablet oxyCODONE /ACETAMINOPHEN [Percocet 5/325 mg] 1 tab PO Q6H PRN #14 tablet PRN Reason: Pain, Moderate (4-6)
--- NOTE | 2020-05-13 16:31 | Progress Note ---
Assessment and Plan Cultures: None A/P: 29-year-old female past medical history diabetes, morbid obesity admitted with right foot eschar and osteomyelitis #Right third metatarsal osteomyelitis: Continue antibiotics for now, ultimate antibiotic plan will depend on surgical outlook. She was seen by me in December of this year and was given 6 weeks of cefepime due to Pseudomonas and GBS in her cultures at that time. #DM2: tight glycemic control for best wound outcomes #Morbid obesity: BMI = 46 Recs: -Given prior cultures with PsA and GBS will continue with Zosyn for now -She is refusing amputation. However there is significant bony destruction, as such I am concerned that antibiotics may not be effective. Regardless we will attempt, though if that fails she will likely need to reconsider her stance on amputation. I discussed this with her and she is in agreement. -Ordered PICC line -Case management consulted for Zosyn until 06/20/2020. -Continue wound care as an outpatient. OK to DC when home antibiotics arranged. Thank you for the consult, we will sign off. please call with questions Treasure Barnes MD [facility] ([facility]) O: [phone] F: [phone] Subjective Date of service: 05/13/20 Interval history: Doing well. No new concerns. Objective - Exam Narrative Exam: Physical Exam: Constitutional: Alert, cooperative. No acute distress Head, Ears, Nose: Normocephalic, atraumatic. Eyes: Conjunctivae/corneas clear. Neck: Supple, no meningeal signs Oral: dentition fair, no thrush Cardiovascular: S1, S2 normal. Respiratory: Good air entry, clear to auscultation bilaterally GI: Soft, non-tender; bowel sounds normal. No peritoneal signs. Musculoskeletal: Right foot eschar overlying third metatarsal head Skin: No rash or abscess Hem/Lymphatic: No palpable cervical or supraclavicular nodes. Psych: Mood ok. Affect normal Neurological: Awake, alert, oriented. No gross abnormality - Constitutional Vitals: Vital Signs Temp Pulse Resp BP Pulse Ox 98.1 F 71 18 138/76 94 05/13/20 12:05 05/13/20 12:05 05/13/20 12:05 05/13/20 12:05 05/13/20 12:05 Temperature -Last 24 Hours Temperature 98.1 F Temperature 97.8 F Temperature 98.0 F Temperature 97.8 F Temperature 98.3 F Temperature 98.0 F - Labs CBC & Chem 7: 05/12/20 05:21 05/13/20 05:39 Labs: Abnormal lab results 05/12/20 05/12/20 05/13/20 Range/Units 16:35 22:04 05:39 Chloride 107.2 H (98-107) mmol/L Carbon Dioxide 20 L (22-30) mmol/L BUN 39 H (7-17) mg/dL Creatinine 3.7 H (0.6-1.2) mg/dL Glucose 145 H (65-100) mg/dL POC Glucose 140 H 154 H (70-105) mg/dL 05/13/20 05/13/20 05/13/20 Range/Units 07:31 12:03 16:20 Chloride (98-107) mmol/L Carbon Dioxide (22-30) mmol/L BUN (7-17) mg/dL Creatinine (0.6-1.2) mg/dL Glucose (65-100) mg/dL POC Glucose 117 H 134 H 146 H (70-105) mg/dL
[2020-05-13] MEDS: DOXAZOSIN 4 MG TAB PO SCH (21:22)
[2020-05-13] MEDS: SODIUM CHLORIDE 0.9% 1000 ML 1,000 ML IV SCH (21:28)
[2020-05-14] MEDS: HYDROmorphone 1 MG/1 ML INJ IV PRN ×3 (04:44→13:49)
[2020-05-14] MEDS: PIPERACILLIN/TAZOBACTAM 3.375 3.375 GM/50 ML BAG IV SCH ×3 (06:10→16:34)
[2020-05-14] MEDS: HEPARIN 5,000 UNIT/1 ML VIAL SUB-Q SCH ×2 (06:10→13:49)
[2020-05-14 06:35] LABS: INR 1.1 (0.87-1.13)
[2020-05-14 06:46] LABS: Calcium 8.6 mg/dL (8.4-10.2)
[2020-05-14] MEDS: amLODIPine 10 MG TAB PO SCH ×3 (08:28→10:50)
[2020-05-14] MEDS: hydrALAZINE 100 MG TAB PO SCH ×2 (08:30→13:50)
[2020-05-14] MEDS: SODIUM BICARBONATE 650 MG TAB PO SCH ×2 (08:30→13:49)
[2020-05-14] MEDS: INSULIN LISPRO 100 UNIT/ML VIAL 3 mL SUB-Q SCH ×2 (08:40→12:26)
--- NOTE | 2020-05-14 10:35 | Progress Note ---
Assessment and Plan Assessment and plan: 29-year-old female with history of diabetes and hypertension comes in for right foot infection. Patient has been allergy of perforating ulcer on the right foot on the heel which is improved over the last 1 year. Now it is a 1 cm circular dark looking ulcer with a surrounding bleb and swelling of the feet. No fever or chills. Patient has not been taking her blood pressure medication for 2 weeks. In November 2019 she was found to have an abscess and signs of osteomyelitis. Patient says the the ulcer on the right foot heel is nearly healed and showed me pictures from 1 year ago to now it used to be a 3 cm ulcer which has come down to 1 cm but the ulcer is covered with eschar and not healed completely. It is a 1 cm x 1 cm ulcer. There is a small bleb adjacent to the ulcer near the fourth toe of the right foot. No coronavirus exposure. Patient is on Coumadin for anticoagulation. 05/09: Continue supportive care. Awaiting ortho input. Continue abx. 05/10: Continue supportive care, ID noted, calling surgery again. continue antibiotics 05/11: Noted Osteomylitis. Continue supportive care, ID input noted, will start on Vancomycin. Renal input noted MR BALDERRAMA RT: IMPRESSION: 1. Severe destructive osteomyelitis involving the distal aspect of the third metatarsal with large overlying plantar soft tissue ulceration. 2. Acute osteomyelitis involving the middle diaphysis of the third metatarsal as well as the proximal phalanx of the third toe. 05/12: Patient seen and examined today discussed right third metatarsal osteomyelitis. The patient was treated this week year with 6 weeks of antibiotics on cefepime due to Pseudomonas and GBS in her cultures at that time according to ID. She verbalized understanding but again is refusing amputation. We will place a PICC line for possible continuation of Zosyn up until 06/20/2020. Wound care management as outpatient. She understands the risk that this may not heal and may eventually require amputation. Severity again discussed and patient verbalized understanding will be working on discharge tomorrow 05/13: Cleared for discharge, again advised on SEVERITY of her condition of her condition and the low probability of success without surgery. 05/14: Continue supportive care, case management working for discharge and antibiotics. Monitor Leukocytosis (1)Osteomylitis-Cellulitis of right foot Current Visit: Yes Status: Acute Plan to address problem: Patient initiated on Unasyn IV and vancomycin IV Wound care consult requested ID consulted Surgery consulted to evaluate for possible debridement. 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 Plan to address problem: Coverage and check hemoglobin A1c Initiated on insulin or oral hypoglycemics ending her blood sugar range (4) Chronic osteomyelitis of right foot Current Visit: Yes Status: Chronic Plan to address problem: Patient has osteomyelitis of the distal end of the third metatarsal We will get orthopedic consult will also get ID consult (5) Anemia Current Visit: No Status: Chronic Qualifiers: Anemia type: due to chronic kidney disease Qualified Code(s): D64.9 - Anemia, unspecified Plan to address problem: Anemia work-up (6) Acute kidney injury with vasomotor nephropathy with underlying progressive CKD Current Visit: No Status: Acute Plan to address problem: IV fluids for now Nephrology consult (7) DVT prophylaxis Current Visit: No Status: Acute Plan to address problem: On Coumadin and GI prophylaxis History Interval history: Patient seen and examined, no new complaints, cleared for discharge but still in house, NO NEW COMPLAINTS Hospitalist Physical - Physical exam Narrative exam: General appearance: Present: no acute distress, well-nourished - EENT Eyes: Present: PERRL ENT: hearing intact, clear oral mucosa - Neck Neck: Present: supple, normal ROM - Respiratory Respiratory effort: normal Respiratory: bilateral: CTA - Cardiovascular Heart rate: 78 Rhythm: regular Heart Sounds: Present: S1 & S2. Absent: rub, click - Extremities Extremities: no ischemia, pulses intact, pulses symmetrical, No edema, abnormal (Right foot ulcer on the heel just adjacent to the third and fourth toes about 2 inches away. And there is a small blood the other third and fourth toe of the right foot.) Extremity abnormal: other (As above) Peripheral Pulses: within normal limits - Abdominal General gastrointestinal: Present: soft, non-tender, non-distended, normal bowel sounds Female genitourinary: Present: normal - Rectal Rectal Exam: deferred - Integumentary Integumentary: Present: clear, warm, dry - Musculoskeletal Musculoskeletal: gait normal, strength equal bilaterally - Psychiatric Psychiatric: appropriate mood/affect, intact judgment & insight - Neurologic Neurologic: CNII-XII intact, moves all extremities - Allied Health Allied health notes reviewed: nursing, case management - Constitutional Vitals: Temp Pulse Resp BP Pulse Ox 97.8 F 60 18 147/85 95 05/14/20 07:43 05/14/20 08:29 05/14/20 07:43 05/14/20 08:29 05/14/20 07:43 General appearance: Present: no acute distress, well-nourished Results - Labs CBC & Chem 7: 05/12/20 05:21 05/14/20 06:02 Labs: Laboratory Last Values WBC 14.2 K/mm3 (4.5-11.0) H 05/12/20 05:21 RBC 3.68 M/mm3 (3.65-5.03) 05/12/20 05:21 Hgb 8.5 gm/dl (10.1-14.3) L 05/12/20 05:21 Hct 27.0 % (30.3-42.9) L 05/12/20 05:21 MCV 73 fl (79-97) L 05/12/20 05:21 MCH 23 pg (28-32) L 05/12/20 05:21 MCHC 31 % (30-34) 05/12/20 05:21 RDW 17.1 % (13.2-15.2) H 05/12/20 05:21 Plt Count 339 K/mm3 (140-440) 05/12/20 05:21 Lymph % (Auto) 14.8 % (13.4-35.0) 05/08/20 05:52 [place] % (Auto) 8.5 % (0.0-7.3) H 05/08/20 05:52 Eos % (Auto) 1.7 % (0.0-4.3) 05/08/20 05:52 Baso % (Auto) 0.9 % (0.0-1.8) 05/08/20 05:52 Lymph # (Auto) 2.0 K/mm3 (1.2-5.4) 05/08/20 05:52 [place] # (Auto) 1.2 K/mm3 (0.0-0.8) H 05/08/20 05:52 Eos # (Auto) 0.2 K/mm3 (0.0-0.4) 05/08/20 05:52 Baso # (Auto) 0.1 K/mm3 (0.0-0.1) 05/08/20 05:52 Seg Neutrophils % 74.1 % (40.0-70.0) H 05/08/20 05:52 Seg Neutrophils # 10.0 K/mm3 (1.8-7.7) H 05/08/20 05:52 PT 14.1 Sec. (12.2-14.9) 05/14/20 06:02 INR 1.10 (0.87-1.13) 05/14/20 06:02 Sodium 142 mmol/L (137-145) 05/14/20 06:02 Potassium 4.7 mmol/L (3.6-5.0) 05/14/20 06:02 Chloride 110.7 mmol/L (98-107) H 05/14/20 06:02 Carbon Dioxide 19 mmol/L (22-30) L 05/14/20 06:02 Anion Gap 17 mmol/L 05/14/20 06:02 BUN 35 mg/dL (7-17) H 05/14/20 06:02 Creatinine 3.8 mg/dL (0.6-1.2) H 05/14/20 06:02 Estimated GFR 17 ml/min 05/14/20 06:02 BUN/Creatinine Ratio 9 % 05/14/20 06:02 Glucose 153 mg/dL (65-100) H 05/14/20 06:02 POC Glucose 125 mg/dL (70-105) H 05/14/20 07:45 Hemoglobin A1c 6.5 % (4-6) H 05/08/20 05:52 Lactic Acid 0.60 mmol/L (0.7-2.0) L 05/07/20 15:05 Calcium 8.6 mg/dL (8.4-10.2) 05/14/20 06:02 Phosphorus 4.60 mg/dL (2.5-4.5) H 05/10/20 16:10 Iron 32 ug/dL (37-170) L 05/08/20 15:07 TIBC 208 mcg/dL (250-450) L 05/08/20 15:07 % Saturation 15.38 % 05/08/20 15:07 Transferrin 164 mg/dl (192-382) L 05/08/20 15:07 Total Bilirubin < 0.20 mg/dL (0.1-1.2) 05/08/20 05:52 AST 16 units/L (5-40) 05/08/20 05:52 ALT 17 units/L (7-56) 05/08/20 05:52 Alkaline Phosphatase 109 units/L (35-129) 05/08/20 05:52 C-Reactive Protein 1.20 mg/dL (0.00-1.30) 05/11/20 05:29 Total Protein 7.7 g/dL (6.3-8.2) 05/08/20 05:52 Albumin 3.3 g/dL (3.9-5) L 05/08/20 05:52 Albumin/Globulin Ratio 0.8 % 05/08/20 05:52 Vitamin B12 1265 pg/mL (211-911) H 05/08/20 15:07 PTH Intact 393.8 pg/mL (15-65) H 05/12/20 05:21 Urine Color Straw (Yellow) 05/08/20 07:30 Urine Turbidity Clear (Clear) 05/08/20 07:30 Urine pH 5.0 (5.0-7.0) 05/08/20 07:30 Ur Specific [place] 1.009 (1.003-1.030) 05/08/20 07:30 Urine Protein 100 mg/dl mg/dL (Negative) 05/08/20 07:30 Urine Glucose (UA) 50 mg/dL (Negative) 05/08/20 07:30 Urine Ketones Neg mg/dL (Negative) 05/08/20 07:30 Urine Blood Sm (Negative) 05/08/20 07:30 Urine Nitrite Neg (Negative) 05/08/20 07:30 Urine Bilirubin Neg (Negative) 05/08/20 07:30 Urine Urobilinogen < 2.0 mg/dL (<2.0) 05/08/20 07:30 Ur Leukocyte Esterase Neg (Negative) 05/08/20 07:30 Urine WBC (Auto) 2.0 /HPF (0.0-6.0) 05/08/20 07:30 Urine RBC (Auto) 3.0 /HPF (0.0-6.0) 05/08/20 07:30 U Epithel Cells (Auto) 3.0 /HPF (0-13.0) 05/08/20 07:30 Urine Bacteria (Auto) 1+ /HPF (Negative) 05/08/20 07:30 Urine Creatinine 66.5 mg/dL (0.1-20.0) H 05/08/20 07:30 Protein/Creatinin Ratio 1.44 05/08/20 07:30 Urine Sodium 29 mmol/L 05/08/20 07:30 Urine Total Protein 96 mg/dL (5-11.8) H 05/08/20 07:30 Random Vancomycin 16.2 ug/mL (0-40.0) 05/09/20 05:33 Irwin/IV: Voiding Method Toilet IV Catheter Type [Right Upper INT / Saline Lock arm] IV Catheter Type [Left Forearm INT / Saline Lock ] IV Catheter Type [Left Peripheral IV Antecubital] Active Medications - Current Medications Current Medications: Generic Name Dose Route Start Last Admin Trade Name Freq PRN Reason Stop Dose Admin Acetaminophen 650 mg 05/07/20 23:32 Acetaminophen 325 Mg Tab PO Q4H PRN Pain MILD(1-3)/Fever >100.5/CLAIRE Amlodipine Besylate 10 mg 05/08/20 10:00 05/14/20 08:29 Amlodipine 10 Mg Tab PO 10 mg QDAY ARLETH Administration Doxazosin Mesylate 4 mg 05/11/20 22:00 05/13/20 21:22 Doxazosin 4 Mg Tab PO 4 mg HS ARLETH Administration Heparin Sodium (Porcine) 5,000 unit 05/10/20 22:00 05/14/20 06:10 Heparin 5,000 Unit/1 Ml Vial SUB-Q 5,000 unit Q8HR ARLETH Administration Hydralazine HCl 100 mg 05/08/20 08:00 05/14/20 08:30 Hydralazine 100 Mg Tab PO 100 mg TID ALRETH Administration Hydralazine HCl 10 mg 05/08/20 14:02 05/09/20 05:45 Hydralazine 20 Mg/1 Ml Inj IV 10 mg Q4HR PRN Administration Hypertension Hydromorphone HCl 0.5 mg 05/07/20 23:32 05/14/20 08:30 Hydromorphone 1 Mg/1 Ml Inj IV 0.5 mg Q3H PRN Administration Pain , Severe (7-10) Piperacillin Sod/Tazobactam Sod 3.375 gm in 50 mls @ 100 mls/hr 05/10/20 15:00 05/14/20 06:10 Zosyn/Ns 3.375gm/50ml IV 06/20/20 23:29 100 mls/hr Q8H ARLETH Administration Protocol Sodium Chloride 1,000 mls @ 75 mls/hr 05/11/20 20:15 05/13/20 21:28 Nacl 0.9% 1000 Ml IV 75 mls/hr DIRECT ARLETH Administration Insulin Human Lispro 0 unit 05/08/20 07:30 05/14/20 08:40 Insulin Lispro 100 Unit/Ml Vial 3 Ml SUB-Q Not Given ACHS ARLETH Protocol Metoprolol Tartrate 100 mg 05/10/20 14:02 05/13/20 21:23 Metoprolol Tartrate 25 Mg Tab PO 100 mg BID ARLETH Administration Ondansetron HCl 4 mg 05/07/20 23:32 05/08/20 21:32 Ondansetron 4 Mg/2 Ml Inj IV 4 mg Q8H PRN Administration Nausea And Vomiting Oxycodone/Acetaminophen 1 tab 05/07/20 23:32 05/09/20 19:16 Oxycodone /Acetaminophen 5-325mg Tab PO 1 tab Q6H PRN Administration Pain, Moderate (4-6) Sodium Bicarbonate 650 mg 05/11/20 10:00 05/14/20 08:30 Sodium Bicarbonate 650 Mg Tab PO 650 mg TID ARLETH Administration Sodium Chloride 10 ml 05/08/20 10:00 05/14/20 08:32 Sodium Chloride 0.9% 10 Ml Flush Syringe IV 10 ml BID ARLETH Administration Sodium Chloride 10 ml 05/07/20 23:32 Sodium Chloride 0.9% 10 Ml Flush Syringe IV PRN PRN LINE FLUSH Nutrition/Malnutrition Assess - Dietary Evaluation Nutrition/Malnutrition Findings: Nutrition Notes Start: 05/09/20 12:48 Freq: Status: Active Protocol: Document 05/13/20 11:35 LP (Rec: 05/13/20 11:40 LP [id number]) Nutrition Notes Need for Assessment generated from: LOS,Education Current Diagnosis Diabetes,Hypertension Other Pertinent Diagnosis Right DM foot infection Current Diet Consistent CHO Subjective/Other Information Screen for LOS. Pt states appetite is ok but does not consume meals like she used to . Pt states she does well with diabetes at home, but her BP is not controlled. Pt states consuming fast food often because of no time to cook. Pt states consuming [place] food , [employer], and pizza. Discussed low sodium options and increasing vegetables and cooking home more. #1 Nutrition Diagnosis Food and nutrition-related knowledge deficit As Evidenced by Signs and Symptoms Pt not aware of how to reduce sodium Diagnosis Progress(for reassessment Continues documentation) Nutrition Intervention Teaching Recipient Patient Learning Readiness Good Teaching Methods Discussion Response to Teaching Verbalize understanding Education Handouts Provided HTN diet and consistent CHO diet Barriers to Learning No Barriers RD phone number provided Yes Patient aware of follow up options Yes Revisit per MD consult or patient Sign Off request:
[2020-05-14] MEDS: METOPROLOL TARTRATE 25 MG TAB PO SCH (10:54)
[2020-05-14 12:37] VITALS: BP 146/87
--- NOTE | 2020-05-14 13:27 | Progress Note ---
Assessment and Plan 1. Acute kidney injury vs progressive CKD: Suspected Acute kidney injury superimposed on CKD stage 4. 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 Prior Creatinine was around 3 in November 2019. Most likely progressive CKD in the setting of poorly controlled DM / HTN. Renal US negative. Monitor renal function. Creatinine 3.8 from 3.7 from 4 from 4.2 from 4.2 from 3.7 from 3.5. Renal prognosis is guarded. Avoid nephrotoxic agents. Meds dosage based on GFR. 2. FEN: Mild metabolic acidosis, PO Sodium bicarbonate, monitor. Monitor lytes and volume status. 3. 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 Abx per ID. Followed by Surgery. 4. Diabetes mellitus type 1: Monitor BG closely. 5. Uncontrolled Hypertension: Monitor BP. Continue current meds. 6. Microcytic Anemia, POA: Monitor Hb. F/u in 2-3 weeks. Examination: The patient was not examined today. However the examination findings from other providers noted. The current and previous medical records are reviewed in detail as are laboratory and imaging data reviewed when appropriate. Medications being given are also reviewed. In addition the case has been discussed with the attending hospitalist and the nurse when needed. New renal recommendations as above. Subjective Date of service: 05/14/20 Objective - Vital Signs Vital signs: Vital Signs - 12hr 05/14/20 05/14/20 05/14/20 04:44 05:18 07:43 Temperature 97.7 F 97.8 F Pulse Rate 71 60 Respiratory 18 18 18 Rate Blood Pressure 143/74 147/85 O2 Sat by Pulse 96 95 Oximetry 05/14/20 05/14/20 05/14/20 08:28 08:29 10:54 Temperature Pulse Rate 60 60 60 Respiratory Rate Blood Pressure 147/85 147/85 147/85 O2 Sat by Pulse Oximetry 05/14/20 12:06 Temperature 98.1 F Pulse Rate 74 Respiratory 18 Rate Blood Pressure 146/87 O2 Sat by Pulse 96 Oximetry - Lab 05/12/20 05:21 05/14/20 06:02 Most recent lab results Calcium 8.6 mg/dL (8.4-10.2) 05/14/20 06:02 Phosphorus 4.60 mg/dL (2.5-4.5) H 05/10/20 16:10 Urine Creatinine 66.5 mg/dL (0.1-20.0) H 05/08/20 07:30 Urine Sodium 29 mmol/L 05/08/20 07:30 Urine Total Protein 96 mg/dL (5-11.8) H 05/08/20 07:30 Medications & Allergies - Medications Allergies/Adverse Reactions: Allergies No Known Allergies Allergy (Unverified 08/24/19 12:03) Home Medications: Home Medications Medication Instructions Recorded Confirmed Last Taken Type Acetaminophen [Acetaminophen TAB] 650 mg PO Q4H PRN 30 Days #30 11/26/19 Unknown Rx tablet Warfarin Sodium [Coumadin] 5 mg PO DAILY 15 Days #15 tab 11/26/19 Unknown Rx Doxazosin [Cardura] 4 mg PO HS #30 tablet 05/13/20 Unknown Rx Metoprolol [Lopressor TAB] 75 mg PO BID 30 Days #60 tablet 05/13/20 Unknown Rx amLODIPine 10 mg PO QDAY #30 tablet 05/13/20 Unknown Rx hydrALAZINE [Apresoline TAB] 100 mg PO TID 30 Days #90 tab 05/13/20 Unknown Rx oxyCODONE /ACETAMINOPHEN [Percocet 1 tab PO Q6H PRN #14 tablet 05/13/20 Unknown Rx 5/325 mg] Active Medications: Generic Name Dose Route Start Last Admin Trade Name Freq PRN Reason Stop Dose Admin Acetaminophen 650 mg 05/07/20 23:32 Acetaminophen 325 Mg Tab PO Q4H PRN Pain MILD(1-3)/Fever >100.5/CLAIRE Amlodipine Besylate 10 mg 05/08/20 10:00 05/14/20 10:50 Amlodipine 10 Mg Tab PO Not Given QDAY [facility] Doxazosin Mesylate 4 mg 05/11/20 22:00 05/13/20 21:22 Doxazosin 4 Mg Tab PO 4 mg HS [facility] Administration Heparin Sodium (Porcine) 5,000 unit 05/10/20 22:00 05/14/20 06:10 Heparin 5,000 Unit/1 Ml Vial SUB-Q 5,000 unit Q8HR [facility] Administration Hydralazine HCl 100 mg 05/08/20 08:00 05/14/20 08:30 Hydralazine 100 Mg Tab PO 100 mg TID [facility]LE[facility] Administration Hydralazine HCl 10 mg 05/08/20 14:02 05/09/20 05:45 Hydralazine 20 Mg/1 Ml Inj IV 10 mg Q4HR PRN Administration Hypertension Hydromorphone HCl 0.5 mg 05/07/20 23:32 05/14/20 08:30 Hydromorphone 1 Mg/1 Ml Inj IV 0.5 mg Q3H PRN Administration Pain , Severe (7-10) Piperacillin Sod/Tazobactam Sod 3.375 gm in 50 mls @ 100 mls/hr 05/10/20 15:00 05/14/20 06:10 Zosyn/Ns 3.375gm/50ml IV 06/20/20 23:29 100 mls/hr Q8H [facility] Administration Protocol Sodium Chloride 1,000 mls @ 75 mls/hr 05/11/20 20:15 05/13/20 21:28 Nacl 0.9% 1000 Ml IV 75 mls/hr DIRECT [facility] Administration Insulin Human Lispro 0 unit 05/08/20 07:30 05/14/20 12:26 Insulin Lispro 100 Unit/Ml Vial 3 Ml SUB-Q Not Given ACHS [facility] Protocol Metoprolol Tartrate 100 mg 05/10/20 14:02 05/14/20 10:54 Metoprolol Tartrate 25 Mg Tab PO 100 mg BID [facility]LE[facility] Administration Ondansetron HCl 4 mg 05/07/20 23:32 05/08/20 21:32 Ondansetron 4 Mg/2 Ml Inj IV 4 mg Q8H PRN Administration Nausea And Vomiting Oxycodone/Acetaminophen 1 tab 05/07/20 23:32 05/09/20 19:16 Oxycodone /Acetaminophen 5-325mg Tab PO 1 tab Q6H PRN Administration Pain, Moderate (4-6) Sodium Bicarbonate 650 mg 05/11/20 10:00 05/14/20 08:30 Sodium Bicarbonate 650 Mg Tab PO 650 mg TID ARLETH Administration Sodium Chloride 10 ml 05/08/20 10:00 05/14/20 08:32 Sodium Chloride 0.9% 10 Ml Flush Syringe IV 10 ml BID [facility] Administration Sodium Chloride 10 ml 05/07/20 23:32 Sodium Chloride 0.9% 10 Ml Flush Syringe IV PRN PRN LINE FLUSH
== END 2020-05-14 15:00 | disposition home health service (06) | DRG 602 ==
LOC: ED 13:20 → 3B-SURG 20:27 → ED 22:40 → 3B-SURG 23:37
PROVIDERS: ADMIT Internal Medicine; ATTEND Internal Medicine
PROC: 02HV33Z Insertion of Infusion Device into Superior Vena Cava, Percutaneous Approach (ICD-10-PCS; principal; 2020-05-13)
DX: L03.115 Cellulitis of right lower limb (principal); N17.0 Acute kidney failure with tubular necrosis; M86.671 Other chronic osteomyelitis, right ankle and foot; Z68.42 Body mass index [BMI] 45.0-49.9, adult; N18.4 Chronic kidney disease, stage 4 (severe); E10.22 Type 1 diabetes mellitus with diabetic chronic kidney disease; E66.01 Morbid (severe) obesity due to excess calories; E10.21 Type 1 diabetes mellitus with diabetic nephropathy; I16.0 Hypertensive urgency; D64.9 Anemia, unspecified; D50.9 Iron deficiency anemia, unspecified; Z79.899 Other long term (current) drug therapy; Z79.01 Long term (current) use of anticoagulants; Z79.4 Long term (current) use of insulin; E10.69 Type 1 diabetes mellitus with other specified complication; L97.519 Non-pressure chronic ulcer of other part of right foot with unspecified severity
CPT/HCPCS: 36415; 76770; 80048; 80053; 80202; 81001; 82140; 82570; 82607; 82747; 82962; 83036; 83550; 83970; 84100; 84156; 84300; 85025; 85027; 85610; 86140; 90686; 96365; 96375; G0378; J0295; J0360; J0696; J1170; J1644; J1815; J2270; J2405; J2543; J3370; J7030; J7040